=== PATIENT | female | born 1990 | race American Indian/Alaskan Native ===

== ENCOUNTER 2016-07-02 23:34 | Emergency (ER) | payer MEDICAID ==
[2016-07-03 00:09] LABS: Basophils % (Auto) 0.7 % (0.0-1.8); Eosinophils % (Auto) 4.8 % (0.0-4.3); Hematocrit 38.9 % (30.3-42.9); Hemoglobin 12.3 gm/dl (10.1-14.3); Mean Corpuscular HGB Conc 32 % (30-34); Mean Corpuscular Volume 82 fl (79-97); Platelet Count 301 K/mm3 (140-440); Red Blood Count 4.77 M/mm3 (3.65-5.03); White Blood Count 6.3 K/mm3 (4.5-11.0)
[2016-07-03 00:11] LABS: Mean Corpuscular Hemoglobin 26 pg (28-32)
[2016-07-03 00:26] LABS: Alanine Aminotransferase 14 units/L (7-56); Albumin 4.1 g/dL (3.9-5); Albumin/Globulin Ratio 1.4 %; Alkaline Phosphatase 64 units/L (35-129); BUN/Creatinine Ratio 15.71; Bilirubin,Total < 0.2 mg/dL (0.1-1.2); Blood Urea Nitrogen 11 mg/dL (7-17); Calcium 8.7 mg/dL (8.4-10.2); Carbon Dioxide 25 mmol/L (22-30); Chloride 100.9 mmol/L (98-107); Glucose 93 mg/dL (65-100); Lipase 24 units/L (13-60); Potassium 3.7 mmol/L (3.6-5.0); Sodium 137 mmol/L (137-145)
[2016-07-03 00:38] LABS: Anion Gap 15 mmol/L
[2016-07-03 06:39] VITALS: BP 146/88
[2016-07-03 06:59] LABS: Bilirubin,Urine NEG (Negative); Blood,Urine NEG (Negative); Ketones,Urine NEG (Negative); Leukocyte Esterase,Urine NEG (Negative); Mucus,Urine FEW /HPF; Nitrite,Urine NEG (Negative); Protein,Urine <15 mg/dL mg/dL (Negative); RBC,Urine < 1.0 /HPF (0.0-6.0); Urobilinogen,Urine < 2.0 mg/dL (<2.0)
--- NOTE | 2016-07-03 07:42 | Emergency Department Report ---
HPI - General Chief Complaint: Abdominal Pain Time Seen by Provider: 07/03/16 07:14 - HPI HPI: This is a 25-year-old Afro-Omani female presents to the emergency department with a three-day history of lower abdomen and low back pain. This is really more of an acute on chronic condition as it is been going on since last March. She believes is related to a ovarian cyst she has in her left ovary. She called her GEOGRAPHY DEPARTMENT CHAIR at [facility] was told to come to the emergency department. She feels as if her abdomen is distended. She denies any problems with bowel or bladder, vaginal bleeding or discharge, nausea or vomiting or any fever. She tried a hydrocodone for pain without any relief. She denies any past medical history. She has a past surgical history 1 . No recent travel or sick contacts at home. ED Past Medical Hx - Past Medical History Previous Medical History?: No - Surgical History Past Surgical History?: No Additional Surgical History: csection - Social History Smoking Status: Current Every Day Smoker Substance Use Type: Alcohol - Medications Home Medications: Home Medications Medication Instructions Recorded Confirmed Last Taken Type HYDROcodone/APAP 5-325 [[place] 1 each PO Q6HR PRN #10 tablet 07/03/16 Unknown Rx 5/325] ED Review of Systems ROS: Stated complaint: NAUSEA, HEADACHE, ABD PAIN Other details as noted in HPI Comment: All other systems reviewed and negative Constitutional: denies: chills, fever Eyes: denies: eye pain, eye discharge, vision change ENT: denies: ear pain, throat pain Respiratory: denies: cough, shortness of breath, wheezing Cardiovascular: denies: chest pain, palpitations Gastrointestinal: abdominal pain, nausea. denies: vomiting Genitourinary: denies: urgency, dysuria, discharge Musculoskeletal: back pain. denies: arthralgia Skin: denies: rash, lesions Neurological: denies: weakness, paresthesias Physical Exam - Physical Exam Vital Signs: Vital Signs 07/02/16 07/03/16 07/03/16 23:42 06:17 06:38 Temperature 98.5 F 98.6 F Pulse Rate 85 59 L 60 Respiratory 16 16 18 Rate Blood Pressure 129/90 148/90 Blood Pressure 146/88 [Right] O2 Sat by Pulse 99 100 100 Oximetry 07/03/16 06:43 Temperature Pulse Rate Respiratory 20 Rate Blood Pressure Blood Pressure [Right] O2 Sat by Pulse Oximetry Physical Exam: GENERAL: The patient is well-developed well-nourished. HEENT: Normocephalic. Atraumatic. Extraocular motions are intact. Patient has moist mucous membranes. Pupils equal reactive to light bilaterally. NECK: Supple. Trachea is midline. CHEST/LUNGS: Clear to auscultation. There is no respiratory distress noted. HEART/CARDIOVASCULAR: Regular. There is no tachycardia. There is no gallop rub or murmur. ABDOMEN: Abdomen is soft. Mild tenderness to palpation to the lower quadrants of the abdomen. No guarding rebound tenderness. No peritoneal signs. Patient has normal bowel sounds. There is no abdominal distention. SKIN: There is no rash. There is no edema. There is no diaphoresis. NEURO: The patient is awake, alert, and oriented. The patient is cooperative. The patient has no focal neurologic deficits. The patient has normal speech. MUSCULOSKELETAL: There is no tenderness or deformity. There is no limitation range of motion. There is no evidence of acute injury. ED Course Vital Signs 07/02/16 07/03/16 07/03/16 23:42 06:17 06:38 Temperature 98.5 F 98.6 F Pulse Rate 85 59 L 60 Respiratory 16 16 18 Rate Blood Pressure 129/90 148/90 Blood Pressure 146/88 [Right] O2 Sat by Pulse 99 100 100 Oximetry 07/03/16 06:43 Temperature Pulse Rate Respiratory 20 Rate Blood Pressure Blood Pressure [Right] O2 Sat by Pulse Oximetry ED Medical Decision Making - Lab Data Result diagrams: 07/02/16 23:53 07/02/16 23:53 - Radiology Data Radiology results: report reviewed Transvaginal/pelvic ultrasound shows bilateral simple ovarian cysts with left greater than right. Abdominal ultrasound does not show any acute process. - Medical Decision Making 25 a female presents with acute on chronic lower abdomen pain has worsened over the past 3 days. She has a history of ovarian cysts. Labs are unremarkable including no signs of infection in the blood or urine, electrolyte abnormalities , renal insufficiency, glucose abnormalities. Patient's belly labs are normal including bilirubin, LFTs and lipase. Patient is not . Normal abdominal ultrasound examination. Transvaginal/pelvic ultrasound shows bilateral simple ovarian cysts. Patient given pain medication here with good relief. She already has established care with the MENTAL MEASUREMENTS TEACHER will be given a primary care doctor referral. She'll return to the ED with any worsening of her symptoms or any acute distress. - Differential Diagnosis ovarian cyst, torsion, colitis, diverticulitis, , fibroids, UTI Critical Care Time: No Critical care attestation.: If time is entered above; I have spent that time in minutes in the direct care of this critically ill patient, excluding procedure time. ED Disposition Clinical Impression: Abdominal pain Qualifiers: Abdominal location: lower abdomen, unspecified Qualified Code(s): R10.30 - Lower abdominal pain, unspecified Ovarian cyst Qualifiers: Laterality: bilateral Qualified Code(s): N83.201 - Unspecified ovarian cyst, right side; N83.202 - Unspecified ovarian cyst, left side Disposition: DISCHARGED TO HOME OR SELFCARE Is pt being admited?: No Condition: Stable Instructions: Abdominal Pain (ED), Ovarian Cyst (ED) Additional Instructions: Please follow-up with your [facility] GEOGRAPHY DEPARTMENT CHAIR service. I also given you a few referrals for local primary care clinics for follow-up. Return to the emergency department with any worsening of your symptoms or any acute distress. You've been prescribed a medication that is sedating. Therefore this medication cannot be mixed with alcohol, or taken prior to driving, working, or being responsible for children. Prescriptions: HYDROcodone/APAP 5-325 [[place] 5/325] 1 each PO Q6HR PRN #10 tablet PRN Reason: Pain Referrals: MAYI CAMACHO CNM [Primary Care Provider] - 3-5 Days [facility] [Outside] - 3-5 Days [facility] [Outside] - 3-5 Days [facility] [Outside] - 3-5 Days Time of Disposition: 09:24
[2016-07-03] MEDS: MORPHINE IM ONE (08:02)
[2016-07-03] MEDS: ZOFRAN ODT PO ONE (08:03)
--- NOTE | 2016-07-03 09:01 | Ultrasound Report ---
ULTRASOUND ABDOMEN COMPLETE: Technique: Transabdominal ultrasound with color Doppler interrogation. History: abdominal pain. Findings: The liver is normal size, contour and echotexture. The gallbladder dimensions are within normal limits without intraluminal stone, wall thickening, or pericholecystic fluid. The CBD is normal caliber. The visualized portions of the pancreas including the head and proximal body are within normal limits. The kidneys demonstrate no hydronephrosis or mass. Cortical thickness and echogenicity are within normal limits bilaterally. The spleen and aorta are within normal limits. No aneurysmal dilatation is noted. No ascites. The bladder is unremarkable. IMPRESSION: Unremarkable abdominal ultrasound.
--- NOTE | 2016-07-03 09:04 | Ultrasound Report ---
ULTRASOUND PELVIC COMPLETE ULTRASOUND TRANSVAGINAL HISTORY: Pelvic pain. TECHNIQUE: Transabdominal and transvaginal ultrasound with color doppler interrogation. The uterus is anteverted and measures 9.7 x 4.0 x 4.9 cm. No uterine fibroids are detected. The endometrial stripe measures 6 mm. Normal cervix. The right ovary measures 3.4 x 2.1 x 2.8 cm and contains a 1.1 cm simple cyst The left ovary measures 3.6 x 2.2 x 2.8 cm and contains a 2.7 cm simple cyst. No pelvic fluid collection. Images through the bladder are unremarkable. IMPRESSION: Bilateral simple ovarian cysts as described.
== END 2016-07-03 09:29 | disposition home or self-care (01) ==
LOC: ED 23:34
DX: N83.201 Unspecified ovarian cyst, right side (principal); N83.202 Unspecified ovarian cyst, left side; F17.200 Nicotine dependence, unspecified, uncomplicated
CPT/HCPCS: 36415; 76700; 76830; 76856; 80053; 81001; 81025; 83690; 85025; 96372; 99284; J2270; Q0162

== ENCOUNTER 2017-06-18 19:50 | Outpatient (CLI) | payer MEDICAID ==
[2017-06-18] MEDS ORDERED: LACTATED RINGERS 1,000 ML IV ONE (21:39)
[2017-06-18 21:41] VITALS: BP 116/73
[2017-06-18 22:50] LABS: Bacteria,Urine 1+ /HPF (Negative); Bilirubin,Urine NEG (Negative); Blood,Urine NEG (Negative); Color,Urine Yellow (Yellow); Mucus,Urine FEW /HPF; Nitrite,Urine NEG (Negative); Protein,Urine <15 mg/dL mg/dL (Negative)
== END 2017-06-18 23:05 | disposition home or self-care (01) ==
LOC: EDSTATUS 21:04 → TRG 21:05
PROVIDERS: ATTEND Obstetrics & Gynecology
DX: O26.892 Other specified pregnancy related conditions, second trimester (principal); R10.9 Unspecified abdominal pain; Z3A.22 22 weeks gestation of pregnancy
CPT/HCPCS: 81001

== ENCOUNTER 2017-08-18 18:09 | Outpatient (CLI) | payer MEDICAID ==
[2017-08-18] MEDS ORDERED: LACTATED RINGERS 500 ML IV ONE (18:15)
[2017-08-18 19:42] LABS: Bacteria,Urine 1+ /HPF (Negative); Bilirubin,Urine NEG (Negative); Blood,Urine NEG (Negative); Color,Urine Yellow (Yellow); Protein,Urine <15 mg/dL mg/dL (Negative)
[2017-08-18] MEDS ORDERED: NORMOSOL-R PH 7.4 1,000 ML IV SCH (20:00)
[2017-08-18] MEDS ORDERED: BRETHINE ONE (20:31)
[2017-08-18 22:32] VITALS: BP 134/81
== END 2017-08-18 23:02 | disposition home or self-care (01) ==
LOC: TRG 18:09
PROVIDERS: ATTEND Obstetrics & Gynecology
DX: O62.9 Abnormality of forces of labor, unspecified (principal); Z3A.32 32 weeks gestation of pregnancy
CPT/HCPCS: 81001; 96360; 96361; 96372; J3105

== ENCOUNTER 2017-09-29 11:45 | Inpatient (IN) | payer MEDICAID ==
[2017-09-29] MEDS ORDERED: BICITRA PO ONE ×2 (11:53→17:00)
[2017-09-29] MEDS ORDERED: PEPCID IV ONE ×2 (11:53→17:00)
[2017-09-29] MEDS ORDERED: REGLAN IV ONE ×2 (11:53→17:00)
--- NOTE | 2017-09-29 13:58 | History and Physical Report ---
History of Present Illness Date of examination: 09/29/17 Date of admission: 09/29/17 11:45 Chief complaint: Repeat C Section with BTL History of present illness: Pt is a 26yo BF EDC 10/20/17; EGA 37 0/7 weeks presents from [facility] for Repeat C Section due to Oligohydramnios. She received care at [facility] Client Finance Analyst and co-managed with [facility] for Gestational Diabetes Mellitus controlled on Glyburide and a history of thyroid disorder, and had an u/s today showing an ELKE of 5.2cm and pylectasis. records are available, and GBS is Positive. Past History Past Medical History: heart disease (Normal EKG, Echo and Holter monitoring per chart), diabetes, thyroid disease Past Surgical History: section REGISTERED NURSE CARDIAC History: abnormal PAP smear, herpes Social history: no significant social history, single - Obstetrical History Expected Date of Delivery: 10/20/17 Actual Gestation: 37 Week(s) 0 Day(s) : 3 Medications and Allergies Allergies Allergy/AdvReac Type Severity Reaction Status Date / Time No Known Allergies Allergy Verified 07/02/16 23:40 Home Medications Medication Instructions Recorded Confirmed Last Taken Type Ferrous Sulfate [Feosol 325 MG tab] 325 mg PO BID #60 tablet 09/29/17 Unknown Rx HYDROcodone/APAP 5-325 [[place] 1 each PO Q6HR PRN #30 tablet 09/29/17 Unknown Rx 5/325] Ibuprofen [Motrin] 800 mg PO Q8HR PRN #30 tablet 09/29/17 Unknown Rx Pnv No.95/Ferrous Fum/Folic AC 1 tab PO DAILY 09/29/17 09/29/17 09/29/17 06:00 History [ Formula Tablet] Vit Calc,Iron,Folic 1 each PO DAILY #30 tablet 09/29/17 Unknown Rx [ Vitamins] glyBURIDE [Glyburide] 2.5 mg PO DAILY 09/29/17 09/29/17 09/28/17 12:00 History Active Meds: Active Medications Lactated Ringer's (Lactated Ringers) 1,000 mls @ 2,250 mls/hr IV PREOP RUCHI Stop: 09/30/17 12:27 Oxytocin/Sodium Chloride (Pitocin/Ns 20 Unit/1000ml Drip) 20 units in 1,000 mls @ 0 mls/hr IV TITR RUCHI Review of Systems All systems: negative - Vital Signs Vital signs: Vital Signs Pulse BP 66 113/76 09/29/17 12:27 09/29/17 12:27 Temp Pulse Resp BP Pulse Ox 93 H 120/71 98 09/29/17 13:51 09/29/17 13:24 09/29/17 13:51 - Physical Exam Breasts: Positive: deferred Cardiovascular: Regular rate Lungs: Positive: Clear to auscultation Abdomen: Positive: normal appearance Genitourinary (Female): Positive: normal external genitalia Uterus: Positive: enlarged Extremities: Positive: normal - Obstetrical FHR: category 1 Uterine Contraction Monitor Mode: External Uterine Contraction Pattern: Irregular Results Result Diagrams: 09/29/17 Unknown All other labs normal. Assessment and Plan - Patient Problems (1) 37 weeks gestation of Onset Date: 09/29/17 Current Visit: Yes Status: Acute Plan to address problem: A: IUP @ 37 weeks Gestational Diabetes Mellitus Oligohydramnios Previous C Section Desires permanent sterilization P: Admit for a Repeat C Section with BTL Monitor BS's (2) Previous section Onset Date: 09/29/17 Current Visit: Yes Status: Acute (3) Sterilization Onset Date: 09/29/17 Current Visit: Yes Status: Acute (4) Oligohydramnios without rupture of membranes in third trimester Onset Date: 09/29/17 Current Visit: Yes Status: Acute Qualifiers: Fetus number: single or unspecified fetus Qualified Code(s): O41.03X0 - Oligohydramnios, third trimester, not applicable or unspecified (5) Gestational diabetes mellitus (GDM) Onset Date: 09/29/17 Current Visit: Yes Status: Acute Qualifiers: Gestational diabetes mellitus control: oral hypoglycemic-controlled Trimester: third trimester Qualified Code(s): O24.415 - Gestational diabetes mellitus in , controlled by oral hypoglycemic drugs
[2017-09-29] MEDS: LACTATED RINGERS 1,000 ML IV SCH ×3 (14:35→16:22)
[2017-09-29 15:12] LABS: Basophils # (Auto) 0.1 K/mm3 (0.0-0.1); Basophils % (Auto) 0.7 % (0.0-1.8); Eosinophils # (Auto) 0.1 K/mm3 (0.0-0.4); Eosinophils % (Auto) 2.1 % (0.0-4.3); Hematocrit 31.1 % (30.3-42.9); Hemoglobin 9.7 gm/dl (10.1-14.3); Lymphocytes # (Auto) 1.6 K/mm3 (1.2-5.4); Lymphocytes % (Auto) 23.2 % (13.4-35.0); Mean Corpuscular HGB Conc 31 % (30-34); Mean Corpuscular Volume 74 fl (79-97); Monocytes # (Auto) 0.7 K/mm3 (0.0-0.8); Monocytes % (Auto) 10.1 % (0.0-7.3); Platelet Count 264 K/mm3 (140-440); Red Blood Count 4.22 M/mm3 (3.65-5.03); Red Cell Distribution Width 15.4 % (13.2-15.2)
[2017-09-29 15:15] LABS: Mean Corpuscular Hemoglobin 23 pg (28-32)
[2017-09-29] MEDS ORDERED: NARCAN 0.4 MG/1 ML IV PRN ×2 (16:03→18:30)
[2017-09-29] MEDS ORDERED: PHENERGAN PR PRN (16:03)
[2017-09-29] MEDS ORDERED: BENADRYL IV PRN (16:03)
[2017-09-29] MEDS ORDERED: PHENERGAN PO PRN (16:03)
[2017-09-29] MEDS ORDERED: DILAUDID IV PRN (16:03)
[2017-09-29] MEDS ORDERED: ZOFRAN IV PRN (16:03)
--- NOTE | 2017-09-29 16:03 | Anesthesia Day of Surgery ---
Anesthesia Day of Surgery - Day of Surgery Patient Examined: Yes Patient H&P Reviewed: Yes Patient is NPO: Yes
--- NOTE | 2017-09-29 16:03 | Anesthesia Consultation ---
Anesthesia Consult and Med Hx Date of service: 09/29/17 - Airway Anesthetic Teeth Evaluation: Good ROM Head & Neck: Adequate Mental/Hyoid Distance: Adequate Mallampati Class: Class II Intubation Access Assessment: Probably Good - Pre-Operative Health Status ASA Pre-Surgery Classification: ASA3 Proposed Anesthetic Plan: Epidural, Spinal - Pulmonary Hx Asthma: No COPD: No Hx Pneumonia: No - Cardiovascular System Hx Hypertension: No - Central Nervous System Hx Seizures: No Hx Psychiatric Problems: No - Endocrine Hx Renal Disease: No Hx End Stage Renal Disease: No Hx Non-Insulin Dependent Diabetes: Yes (gestational diabetes) Hx Hypothyroidism: Yes Hx Hyperthyroidism: No - Hematic Hx Anemia: Yes Hx Sickle Cell Disease: No - Other Systems Hx Alcohol Use: No Hx Obesity: Yes (BMI 34.3)
[2017-09-29] MEDS ORDERED: SODIUM CHLORIDE FLUSH SYRINGE 10 ML IV NR ×2 (17:00→19:00)
[2017-09-29] MEDS ORDERED: ANCEF/STERILE WATER 2 GM/20 ML IV ONE (17:25)
[2017-09-29] MEDS ORDERED: WATER FOR IRRIG STERILE IR ONE (17:38)
[2017-09-29] MEDS ORDERED: NACL 0.9% IR ONE (17:38)
[2017-09-29] MEDS ORDERED: NEO SYNEPHRINE/NS Syringe(OR USE) IV ONE (17:45)
[2017-09-29] MEDS: PITOCin/NS 20 UNIT/1000ML DRIP 20 UNITS/1,000 ML BAG IV SCH ×2 (17:47→19:08)
[2017-09-29] MEDS ORDERED: MORPHINE ONE (17:57)
[2017-09-29] MEDS ORDERED: DILAUDID ONE (17:57)
[2017-09-29] MEDS ORDERED: XYLOCAINE MPF 2% ONE (18:06)
--- NOTE | 2017-09-29 18:29 | Operative Report ---
Operative Report Operative Report: Date of procedure: 09/29/2017 Pre-operative diagnosis: 1. Intrauterine at 37-0/7 weeks 2. Gestational diabetes 3. Oligohydramnios 4. Previous 5. Desires permanent sterilization Post-operative diagnosis: Same Procedure name(s): 1. Repeat low transverse section 2. Bilateral tubal ligation Surgeon: Dick Ybarra MD Dairy Husbandman: None Anesthesia: Spinal anesthesia by Dr. White EBL: 700 mls Findings: A 2520 g female Apgars 8 at 1 minute 9 at 5 minutes. Clear amniotic fluid. Normal uterus. Normal tubes and ovaries bilaterally. Procedure: After the patient was prepped and draped in usual sterile fashion, and after satisfactory level of epidural anesthesia was obtained, the skin knife was used to make a transverse skin incision through the previous skin scar. The incision was excised down to layer of the fascia, which was nicked in the midline and extended laterally using the Bovie cautery. The rectus muscles were dissected off the rectus fascia both superiorly and inferiorly. The rectus bellies in the midline, and the peritoneum was entered under direct visualization. The peritoneal incision was extended superiorly and inferiorly. A bladder flap was created and the bladder blade was then placed. The uterus was scored in a curvilinear linear fashion, entered in the midline revealing clear amniotic fluid. The infant's head was delivered onto the surgical field, and the oropharynx and nasopharynx were bulb suctioned. The rest of the infant's body was delivered, cord was doubly clamped and cut and the infant was handed to the waiting respiratory team. The placenta was manually removed from the uterus, and the uterus removed from its normal anatomical position. After gentle uterine lavage, the incision was inspected and found to be without extensions. It was then closed in 2 layers using 0 Vicryl suture in a running interlocking fashion, the second layer imbricating the first. Attention was then turned to the tubal ligation. First the right fallopian tube was grasped using a [place], and the [place] clip was applied to the proximal portion of the tube. The same procedure performed on the left fallopian tube. The left fallopian tube was grasped using [place], and the [place] clip was applied to the possible portion of the tube. After good hemostasis was achieved, copious amounts or irrigation was performed, and the gutters were suctioned free of blood and blood clots. The Tisseel sealant was sprayed across the uterine incision. The uterus was then returned to its normal anatomical position, and after excellent hemostasis assured, the peritoneum was re-approximated using 3-0 Vicryl suture in a running interlocking fashion, and then the rectus muscles were re-approximated using 3- 0 Vicryl suture in a [id number] configuration. The fascia was then re- approximated using 0 Vicryl suture in running interlocking fashion. The subcutaneous layer was made hemostatic using Bovie cautery, the Tisseel sealant was sprayed across the fascial incision and the skin edges re-approximated using 4-0 Vicryl suture in a sub-cuticular fashion. Patient tolerated the procedure well was transported to recovery in stable condition.
[2017-09-29] MEDS ORDERED: SENOKOT PO PRN (18:30)
[2017-09-29] MEDS ORDERED: TYLENOL PO PRN (18:30)
[2017-09-29] MEDS ORDERED: D50W (25GM) Syringe IV PRN (18:30)
[2017-09-29] MEDS ORDERED: TUCKS PAD TP PRN (18:30)
[2017-09-29] MEDS ORDERED: MYLICON PO PRN (18:30)
[2017-09-29] MEDS ORDERED: LANSINOH TP PRN (18:30)
[2017-09-29] MEDS ORDERED: ANCEF/NS 1 GM/50 ML 1 GM/50 ML BAG IV SCH (19:00)
[2017-09-29] MEDS ORDERED: PITOCin/NS 20 UNIT/1000ML DRIP 20 UNITS/1,000 ML BAG IV SCH (19:00)
[2017-09-29] MEDS ORDERED: D5LR 1,000 ML IV SCH (19:00)
[2017-09-29] MEDS: TORADOL IV PRN (20:37)
[2017-09-29] MEDS: HumuLIN R SUB-Q SCH (22:00)
[2017-09-30] MEDS: LACTATED RINGERS 1,000 ML IV SCH ×3 (00:16→09:20)
[2017-09-30] MEDS: ceFAZolin 1 GM in NACL 0.9% 20 ML IV SCH ×2 (01:12→09:22)
[2017-09-30] MEDS: TORADOL IV PRN (02:24)
[2017-09-30 05:32] LABS: Hematocrit 27.1 % (30.3-42.9); Hemoglobin 8.6 gm/dl (10.1-14.3)
[2017-09-30] MEDS ORDERED: BOOSTRIX IM ONE (06:00)
[2017-09-30] MEDS ORDERED: M-M-R II VACCINE SUB-Q ONE (06:00)
[2017-09-30] MEDS: NORCO 5/325 PO PRN ×2 (07:59→14:30)
--- NOTE | 2017-09-30 10:04 | Progress Note ---
Assessment and Plan A: POD#1 s/p Repeat c/s with BTL Bottle feeding Pain well controlled Stable P: Routine PP/PO care Encouraged ambulation in room Abdominal Binder Subjective - Subjective Date of service: 09/30/17 Principal diagnosis: Repeat c/s Interval history: see H&P and operative note Patient reports: appetite normal, voiding normally, pain well controlled, flatus , ambulating normally, no bowel movement [place]: doing well, bottle feeding Objective - Vital Signs Latest vital signs: Vital Signs Temp Pulse Resp BP BP Pulse Ox 09/30/17 07:25 98.2 F 60 20 112/70 96 09/30/17 04:15 98.4 F 68 18 106/68 09/30/17 02:24 20 09/30/17 00:17 98.2 F 75 18 114/70 09/29/17 20:37 20 09/29/17 20:10 98.6 F 61 18 109/70 09/29/17 19:30 97.5 F L 66 108/63 100 09/29/17 19:27 18 09/29/17 19:15 72 104/56 99 09/29/17 19:05 69 10 L 108/61 99 09/29/17 19:00 78 16 99/52 100 09/29/17 18:55 69 16 97/61 99 09/29/17 18:50 67 14 101/58 99 09/29/17 18:45 76 14 98/60 99 09/29/17 18:40 73 17 104/66 99 09/29/17 18:35 102/61 99 09/29/17 18:32 98.2 F 100/67 100 09/29/17 18:28 98.2 F 09/29/17 16:50 98.2 F 18 09/29/17 16:45 86 97 09/29/17 16:40 79 98 09/29/17 16:35 88 123/71 09/29/17 16:18 81 98 09/29/17 16:13 75 98 09/29/17 16:08 81 99 09/29/17 16:01 81 99 09/29/17 15:58 70 88 09/29/17 15:56 77 98 09/29/17 15:51 85 98 09/29/17 15:46 80 99 09/29/17 15:43 69 94 05/07/18 15:41 93 H 98 05/07/18 15:36 68 99 05/07/18 15:31 75 98 05/07/18 15:30 66 73 L 05/07/18 15:26 78 100 05/07/18 15:21 80 98 05/07/18 15:16 70 99 05/07/18 15:15 81 58 L 05/07/18 15:11 67 99 05/07/18 15:06 71 99 05/07/18 15:01 66 99 05/07/18 14:56 66 98 05/07/18 14:51 67 97 05/07/18 14:46 85 97 05/07/18 14:41 76 98 05/07/18 14:36 98 H 98 05/07/18 14:31 77 98 05/07/18 14:26 81 98 05/07/18 14:21 73 99 05/07/18 14:16 73 94 05/07/18 14:11 74 98 05/07/18 14:06 68 96 05/07/18 14:01 70 97 05/07/18 13:56 71 97 05/07/18 13:53 68 94 05/07/18 13:51 93 H 98 05/07/18 13:46 71 94 05/07/18 13:43 71 94 05/07/18 13:41 72 97 05/07/18 13:36 79 98 05/07/18 13:31 69 98 05/07/18 13:26 73 96 05/07/18 13:24 70 120/71 05/07/18 13:21 69 98 05/07/18 13:16 71 98 05/07/18 13:10 69 96 05/07/18 13:06 77 95 05/07/18 13:01 75 96 05/07/18 12:56 67 96 05/07/18 12:51 80 96 05/07/18 12:46 82 97 05/07/18 12:41 71 98 05/07/18 12:36 67 98 05/07/18 12:31 62 99 05/07/18 12:27 66 113/76 Intake and Output 05/07/18 05/08/18 05/08/18 23:59 07:59 15:59 Intake Total 2337.5 209.073 6784 Output Total 200 700 Balance 2137.5 -868.666 9995 Intake: IV 2337.5 973.464 3947 Lactated Ringers 1,000 ml 561.133 9798 @ 125 mls/hr IV DIRECT RUCHI Rx#:[id number] PITOCin/NS 20 UNIT/1000ML 337.5 DRIP 20 units In 1,000 ml @ As Directed IV TITR RUCHI Rx#:[id number] Oral 360 Output: Urine 200 700 Indwelling Catheter 700 Other: Total, Intake Amount 120 Total, Output Amount 300 Estimated Blood Loss 700 - Exam Breasts: Present: normal Cardiovascular: Present: Regular rate, Normal S1, Normal S2 Lungs: Present: Clear to auscultation, Normal air movement Abdomen: Present: normal appearance, soft, normal bowel sounds Vulva: both: normal Uterus: Present: firm, fundal height at umbilicus Extremities: Present: normal Deep Tendon Reflex Grade: Normal +2 Incision: Present: normal, dry, intact, dressed (Pressure dressing intact, no drainage) - Labs Labs: Abnormal lab results 09/29/17 09/29/17 09/29/17 Range/Units 15:30 16:55 22:00 Hgb (10.1-14.3) gm/dl Hct (30.3-42.9) % MCV (79-97) fl MCH (28-32) pg RDW (13.2-15.2) % [place] % (Auto) (0.0-7.3) % POC Glucose 63 L 64 L 64 L (70-105) 09/29/17 09/30/17 09/30/17 Range/Units Unknown 04:52 08:02 Hgb 9.7 L 8.6 L (10.1-14.3) gm/dl Hct 27.1 L (30.3-42.9) % MCV 74 L (79-97) fl MCH 23 L (28-32) pg RDW 15.4 H (13.2-15.2) % [place] % (Auto) 10.1 H (0.0-7.3) % POC Glucose 56 L (70-105)
[2017-09-30] MEDS: PERCOCET 5/325 PO PRN ×2 (17:11→23:10)
[2017-09-30] MEDS: HumuLIN R SUB-Q SCH (22:00)
[2017-09-30] MEDS: MILK OF MAGNESIA PO PRN (23:45)
[2017-10-01] MEDS: PERCOCET 5/325 PO PRN (06:09)
[2017-10-01] MEDS ORDERED: BOOSTRIX IM ONE (08:00)
[2017-10-01] MEDS: HumuLIN R SUB-Q SCH ×2 (08:56→17:54)
--- NOTE | 2017-10-01 09:31 | Progress Note ---
Assessment and Plan - Patient Problems (1) S/P repeat low transverse Current Visit: Yes Status: Acute Plan to address problem: POD 2 - stable Continue routine postop orders Discharge to home 10/02/17 F/U at [facility] in 2 weeks for incision check (2) Anemia in puerperium, baby delivered during current episode of care Current Visit: Yes Status: Acute Plan to address problem: Asymptomatic Continue iron therapy (3) Gestational diabetes mellitus (GDM) Onset Date: 09/29/17 Current Visit: Yes Status: Acute Qualifiers: Gestational diabetes mellitus control: oral hypoglycemic-controlled Trimester: third trimester Qualified Code(s): O24.415 - Gestational diabetes mellitus in , controlled by oral hypoglycemic drugs Plan to address problem: Last two blood sugars - 88, 75 Continue ADA diet and routine accucheck Subjective - Subjective Date of service: 10/01/17 Principal diagnosis: Repeat LTCS, BTL Patient reports: appetite normal, voiding normally, pain well controlled, flatus , ambulating normally, no bowel movement : doing well, other (breast and bottle feeding) Objective - Vital Signs Latest vital signs: Vital Signs Temp Pulse Resp BP BP Pulse Ox 10/01/17 00:30 98.2 F 64 20 112/63 97 09/30/17 23:10 22 09/30/17 16:40 98.3 F 63 20 101/57 98 09/30/17 11:43 98.3 F 60 20 105/63 98 Intake and Output 09/30/17 10/01/17 10/01/17 23:59 07:59 15:59 Intake Total 120 480 Output Total 700 Balance -580 480 Intake: Oral 120 480 Output: Urine 700 Void 700 Other: Total, Intake Amount 120 240 Total, Output Amount 700 # Voids Void 1 - Exam Cardiovascular: Present: Regular rate, Normal S1, Normal S2, No murmurs Lungs: Present: Clear to auscultation, Normal air movement Abdomen: Present: normal appearance, soft Vulva: both: normal Uterus: Present: normal, firm, fundal height at umbilicus Extremities: Present: normal Deep Tendon Reflex Grade: Normal +2 Incision: Present: normal, dry, intact - Labs Labs: Abnormal lab results 09/30/17 09/30/17 Range/Units 11:49 17:17 POC Glucose 110 H 121 H (70-105)
--- NOTE | 2017-10-01 09:37 | Discharge Summary ---
Providers - Providers Date of Admission: 09/29/17 11:45 Date of discharge: 10/02/17 Attending physician: IGNACIO WALSH MD Primary care physician: IGNACIO WALSH MD Hospitalization Reason for admission: section, IUP at term Delivery: Procedure: repeat low transverse Episiotomy: none Laceration: none Incision: normal, dry, intact Other procedures: tubal ligation complications: none Discharge diagnosis: IUP at term delivered baby: female Hospital course: Uncomplicated Condition at discharge: Stable Disposition: DC-01 TO HOME OR SELFCARE - Discharge Diagnoses (1) S/P repeat low transverse Status: Acute (2) Anemia in puerperium, baby delivered during current episode of care Status: Acute Comment: Asymptomatic - continue iron therapy (3) Gestational diabetes mellitus (GDM) Status: Acute Qualifiers: Gestational diabetes mellitus control: oral hypoglycemic-controlled Trimester: third trimester Qualified Code(s): O24.415 - Gestational diabetes mellitus in , controlled by oral hypoglycemic drugs Plan - Discharge Medications Prescriptions: Ferrous Sulfate [Feosol 325 MG tab] 325 mg PO BID #60 tablet HYDROcodone/APAP 5-325 [[place] 5/325] 1 each PO Q6HR PRN #30 tablet PRN Reason: Pain Ibuprofen [Motrin] 800 mg PO Q8HR PRN #30 tablet PRN Reason: Moder Pain Unrelieved By [place] Vit Calc,Iron,Folic [ Vitamins] 1 each PO DAILY #30 tablet - Provider Discharge Summary Activity: routine, no sex for 6 weeks, no heavy lifting 4 weeks, no strenuous exercise Diet: routine Instructions: routine Additional instructions: [] Smoking cessation referral if applicable(refer to patient education folder for contact #) [] Refer to [facility]'s [facility] Booklet Call your doctor immediately for: * Fever > 100.5 * Heavy vaginal bleeding ( >1 pad per hour) * Severe persistent headache * Shortness of breath * Reddened, hot, painful area to leg or breast * Drainage or odor from incision. * Keep incision clean and dry at all times and follow doctor's instructions regarding bathing/showering - Follow up plan Follow up: IGNACIO WALSH MD [Primary Care Provider] - 14 Days (Follow up at [facility] in 2 weeks for incision check)
[2017-10-01] MEDS: FEOSOL PO SCH (10:26)
[2017-10-01] MEDS: PRENATAL VITAMIN PO SCH (10:27)
[2017-10-01] MEDS: MOTRIN PO PRN ×2 (10:28→16:30)
[2017-10-01] MEDS: NORCO 5/325 PO PRN (13:40)
[2017-10-02] MEDS: PERCOCET 5/325 PO PRN ×2 (00:59→13:21)
[2017-10-02] MEDS: MOTRIN PO PRN ×2 (00:59→09:31)
[2017-10-02] MEDS: MILK OF MAGNESIA PO PRN (01:02)
[2017-10-02] MEDS: FEOSOL PO SCH (09:30)
[2017-10-02] MEDS: PRENATAL VITAMIN PO SCH (09:30)
[2017-10-02 18:51] VITALS: BP 120/72
== END 2017-10-02 16:00 | disposition home or self-care (01) | DRG 765 ==
LOC: LD 11:45 → OB 20:22
PROVIDERS: ADMIT Obstetrics & Gynecology; ATTEND Obstetrics & Gynecology
PROC: 10D00Z1 Extraction of Products of Conception, Low, Open Approach (ICD-10-PCS; principal; 2017-09-29)
PROC: 0UL70CZ Occlusion of Bilateral Fallopian Tubes with Extraluminal Device, Open Approach (ICD-10-PCS; 2017-09-29)
DX: O34.211 Maternal care for low transverse scar from previous cesarean delivery (principal); O41.03X0 Oligohydramnios, third trimester, not applicable or unspecified; O24.425 Gestational diabetes mellitus in childbirth, controlled by oral hypoglycemic drugs; O99.824 Streptococcus B carrier state complicating childbirth; Z3A.37 37 weeks gestation of pregnancy; Z37.0 Single live birth; D64.9 Anemia, unspecified; Z30.2 Encounter for sterilization; O90.81 Anemia of the puerperium
CPT/HCPCS: 36415; 82962; 85014; 85018; 85025; 86592; 86850; 86900; 86901; 90471; 90715; 99211; A6250; C9250; G0463; J0690; J1170; J1885; J2270; J2370; J2405; J2590; J2765; J7120

== ENCOUNTER 2020-04-09 21:16 | Emergency (ER) | payer MEDICAID ==
[2020-04-09 23:41] LABS: Basophils % (Auto) 0.9 % (0.0-1.8); Eosinophils # (Auto) 0.2 K/mm3 (0.0-0.4); Eosinophils % (Auto) 2.8 % (0.0-4.3); Hematocrit 40.8 % (30.3-42.9); Hemoglobin 13.4 gm/dl (10.1-14.3); Lymphocytes # (Auto) 2.5 K/mm3 (1.2-5.4); Lymphocytes % (Auto) 42.9 % (13.4-35.0); Mean Corpuscular HGB Conc 33 % (30-34); Mean Corpuscular Volume 90 fl (79-97); Monocytes # (Auto) 0.3 K/mm3 (0.0-0.8); Monocytes % (Auto) 5.4 % (0.0-7.3); Platelet Count 378 K/mm3 (140-440); Red Blood Count 4.53 M/mm3 (3.65-5.03); Red Cell Distribution Width 18.6 % (13.2-15.2)
[2020-04-09 23:52] LABS: Blood Urea Nitrogen 7 mg/dL (7-17); Calcium 9.3 mg/dL (8.4-10.2); Hemolysis Index 1
[2020-04-09 23:55] LABS: BUN/Creatinine Ratio 12
[2020-04-10] MEDS ORDERED: ASPIRIN 325 MG TAB ONE (01:22)
[2020-04-10] MEDS ORDERED: SODIUM CHLORIDE 0.9% 1000 ML 1,000 ML IV ONE (01:59)
[2020-04-10] MEDS ORDERED: ACETAMINOPHEN 500 MG TAB PO ONE (01:59)
[2020-04-10] MEDS ORDERED: MECLIZINE 25 MG TAB PO ONE (01:59)
--- NOTE | 2020-04-10 02:31 | XRay Report ---
CHEST 1 VIEW 04/10/2020 2:23 AM INDICATION / CLINICAL INFORMATION: syncope. COMPARISON: None available. FINDINGS: SUPPORT DEVICES: None. HEART / MEDIASTINUM: No significant abnormality. LUNGS / PLEURA: No significant pulmonary or pleural abnormality. No pneumothorax. ADDITIONAL FINDINGS: No significant additional findings. IMPRESSION: 1. No acute findings. Signer Name: Eulogio Castro MD Signed: 04/10/2020 2:26 AM Workstation Name: [email or web address]
--- NOTE | 2020-04-10 02:46 | Cat Scan Report ---
CT head/brain wo con INDICATION: syncope, dizziness. TECHNIQUE: Routine CT head without contrast. All CT scans at this location are performed using CT dos e reduction for ALARA by means of automated exposure control. COMPARISON: None. FINDINGS: BRAIN / INTRACRANIAL CONTENTS: No acute hemorrhage, mass effect, midline shift, or hydrocephalus. No appreciable acute large territorial or lacunar infarct. No chronic infarct or focal atrophy. Normal b rain volume and ventricular/sulcal size for age. ORBITS: No significant abnormality of visualized orbits. SINUSES / MASTOIDS: No significant abnormality of visualized sinuses and mastoid air cells. ADDITIONAL FINDINGS: None. IMPRESSION: 1. No acute intracranial abnormality. Signer Name: Eulogio Castro MD Signed: 04/10/2020 2:41 AM Workstation Name: [id number]
--- NOTE | 2020-04-10 02:48 | Cat Scan Report ---
CT ABDOMEN AND PELVIS WITH CONTRAST HISTORY: Lower abdominal pain COMPARISON: None TECHNIQUE: Routine abdominal and pelvic CT exam performed following intravenous contrast administrat ion. The patient received 100 mL IV Omnipaque 300. All CT scans at this location are performed using CT dose reduction for ALARA by means of automated exposure control. FINDINGS: CT ABDOMEN: Lung Bases: No significant abnormality. Liver: No significant abnormality. Biliary: No significant abnormality. Spleen: No significant abnormality. Unenlarged. Pancreas: No significant abnormality. Adrenals: No significant abnormality. Kidneys: No significant abnormality. Lymphatics: No lymphadenopathy. Vasculature: No significant abnormality. Bowel/Peritoneum: No acute abnormality. No free air. No free fluid. Normal appendix. There is a tiny fat-containing supraumbilical ventral hernia. CT PELVIC: : No acute findings. There are bilateral tubal ligation clips in place. Lymphatics: No lymphadenopathy. Osseous Structures: No aggressive appearing osseous lesions. Additional Findings: None IMPRESSION: 1. No acute findings. Signer Name: Eulogio Castro MD Signed: 04/10/2020 2:43 AM Workstation Name: [id number]
--- NOTE | 2020-04-10 05:57 | Emergency Department Report ---
ED Syncope HPI - General Chief Complaint: Syncope Stated Complaint: HIGH BLOOD PRESSURE - History of Present Illness Initial Comments: Patient is a 29-year-old -[place] female with a history of hypertension who presents to the ED with complaint of acute onset of a single episode of syncope that occurred 6 hours ago while at home. Patient states that she was in the kitchen standing when she felt lightheaded and had a syncopal episode with a brief loss of consciousness. Patient states that she thereafter developed headache with nausea and back pain. Patient denies dizziness, seizures, chest pain, shortness of breath, change in vision, vomiting, abdominal pain, numbness and tingling or weakness of upper and lower extremities bilaterally, cough, fever, chills or cough. Timing/Prior Episodes: single episode today, other (headache) Precipitating Factors: Positive: lightheadedness, nausea, pain. Negative: blurred vision, confusion, diaphoresis, recent head trauma, rapid heart beat Context: standing Loss of Consciousness: no loss of consciousness Current Symptoms: headache, lightheadedness. denies: loss of bladder control, loss of bowel control, motionless, nausea, pale, shallow/rapid breathing, weak/absent pulse, weakness, other - Related Data Allergies/Adverse Reactions: Allergies turkey Allergy (Verified 09/30/17 12:00) Unknown Home Medications: Ambulatory Orders Ferrous Sulfate [Feosol 325 MG tab] 325 mg PO BID #60 tablet 09/29/17 HYDROcodone/APAP 5-325 [[place] 5/325] 1 each PO Q6HR PRN #30 tablet 09/29/17 Ibuprofen [Motrin] 800 mg PO Q8HR PRN #30 tablet 09/29/17 Pnv No.95/Ferrous Fum/Folic AC [ Formula Tablet] 1 tab PO DAILY 09/29/17 Vit Calc,Iron,Folic [ Vitamins] 1 each PO DAILY #30 tablet 09/29/17 glyBURIDE [Glyburide] 2.5 mg PO DAILY 09/29/17 Butalb/Acetamin/Caff 50-325-40 [Fioricet 50-325-40] 1 tab PO Q6HR PRN #12 tab 04/10/20 Ibuprofen [Motrin] 600 mg PO Q8H PRN #24 tablet 04/10/20 Meclizine HCl 25 mg PO Q8H PRN #30 tablet 04/10/20 ED Review of Systems ROS: Stated complaint: HIGH BLOOD PRESSURE Other details as noted in HPI Constitutional: malaise, weakness. denies: chills, fever Eyes: denies: eye pain, eye discharge, vision change ENT: denies: ear pain, throat pain Respiratory: denies: cough, shortness of breath, wheezing Cardiovascular: denies: chest pain, palpitations, syncope, paroxysmal nocturnal dyspnea Endocrine: no symptoms reported Gastrointestinal: nausea. denies: abdominal pain, vomiting, diarrhea Genitourinary: denies: urgency, dysuria, discharge Musculoskeletal: denies: back pain, joint swelling, arthralgia Skin: denies: rash, lesions Neurological: headache, other (syncope). denies: weakness, paresthesias Psychiatric: denies: anxiety, depression Hematological/Lymphatic: denies: easy bleeding, easy bruising ED Past Medical Hx - Past Medical History Previous Medical History?: Yes Hx Hypertension: Yes Hx Congestive Heart Failure: No Hx Diabetes: (Gestational Diabetes) Hx Deep Vein Thrombosis: No Hx Renal Disease: No Hx Sickle Cell Disease: No Hx Seizures: No Hx Asthma: No Hx COPD: No Hx HIV: No Additional medical history: thyroid - Surgical History Past Surgical History?: Yes Additional Surgical History: c section X 2 - Social History Smoking Status: Current Every Day Smoker Substance Use Type: None - Medications Home Medications: Home Medications Medication Instructions Recorded Confirmed Last Taken Type Ferrous Sulfate [Feosol 325 MG tab] 325 mg PO BID #60 tablet 09/29/17 Unknown Rx HYDROcodone/APAP 5-325 [[place] 1 each PO Q6HR PRN #30 tablet 09/29/17 Unknown Rx 5/325] Ibuprofen [Motrin] 800 mg PO Q8HR PRN #30 tablet 09/29/17 Unknown Rx Pnv No.95/Ferrous Fum/Folic AC 1 tab PO DAILY 09/29/17 09/29/17 09/29/17 06:00 History [ Formula Tablet] Vit Calc,Iron,Folic 1 each PO DAILY #30 tablet 09/29/17 Unknown Rx [ Vitamins] glyBURIDE [Glyburide] 2.5 mg PO DAILY 09/29/17 09/29/17 09/28/17 12:00 History Butalb/Acetamin/Caff 50-325-40 1 tab PO Q6HR PRN #12 tab 04/10/20 Unknown Rx [Fioricet 50-325-40] Ibuprofen [Motrin] 600 mg PO Q8H PRN #24 tablet 04/10/20 Unknown Rx Meclizine HCl 25 mg PO Q8H PRN #30 tablet 04/10/20 Unknown Rx ED Physical Exam - General Limitations: No Limitations General appearance: alert, in no apparent distress - Head Head exam: Present: atraumatic, normocephalic, normal inspection - Eye Eye exam: Present: normal appearance, PERRL, EOMI Pupils: Present: normal accommodation - ENT ENT exam: Present: normal exam, normal orophraynx, mucous membranes moist, TM's normal bilaterally, normal external ear exam - Neck Neck exam: Present: normal inspection, full ROM - Respiratory Respiratory exam: Present: normal lung sounds bilaterally. Absent: respiratory distress, wheezes, rales, rhonchi, chest wall tenderness, accessory muscle use, decreased breath sounds, prolonged expiratory - Cardiovascular Cardiovascular Exam: Present: regular rate, normal rhythm, normal heart sounds. Absent: systolic murmur, diastolic murmur, rubs, gallop - GI/Abdominal GI/Abdominal exam: Present: soft, normal bowel sounds. Absent: distended, tenderness, guarding, hyperactive bowel sounds, hypoactive bowel sounds - Extremities Exam Extremities exam: Present: normal inspection, full ROM, normal capillary refill - Back Exam Back exam: Present: normal inspection, full ROM. Absent: tenderness, CVA tenderness (R), CVA tenderness (L), muscle spasm, paraspinal tenderness, vertebral tenderness - Neurological Exam Neurological exam: Present: alert, oriented X3, CN II-XII intact, normal gait, reflexes normal - Psychiatric Psychiatric exam: Present: normal affect, normal mood - Skin Skin exam: Present: warm, dry, intact, normal color. Absent: rash ED Course Vital Signs 04/09/20 04/10/20 22:48 01:38 Temperature 98.4 F 98.3 F Pulse Rate 76 77 Respiratory 16 18 Rate Blood Pressure 149/106 Blood Pressure 149/96 [Left] O2 Sat by Pulse 98 98 Oximetry ED Medical Decision Making - Lab Data Result diagrams: 04/09/20 23:15 04/09/20 23:15 - Radiology Data Radiology results: report reviewed, image reviewed Findings [facility] [address] [place] [address] Cat Scan Report Signed Patient: SHERINE ALCAZAR MR#: [id number] : 1990 Acct:[id number] Age/Sex: 29 / F ADM Date: 04/09/20 Loc: ED Attending Dr: Ordering Physician: SNEHA VELASQUEZ Date of Service: 04/10/20 Procedure(s): CT head/brain wo con Accession Number(s): [id number] cc: SNEHA VELASQUEZ CT head/brain wo con INDICATION: syncope, dizziness. TECHNIQUE: Routine CT head without contrast. All CT scans at this location are performed using CT dose reduction for ALARA by means of automated exposure control. COMPARISON: None. FINDINGS: BRAIN / INTRACRANIAL CONTENTS: No acute hemorrhage, mass effect, midline shift, or hydrocephalus. No appreciable acute large territorial or lacunar infarct. No chronic infarct or focal atrophy. Normal brain volume and ventricular/sulcal size for age. ORBITS: No significant abnormality of visualized orbits. SINUSES / MASTOIDS: No significant abnormality of visualized sinuses and mastoid air cells. ADDITIONAL FINDINGS: None. IMPRESSION: 1. No acute intracranial abnormality. Signer Name: Eulogio Castro MD Signed: 04/10/2020 2:41 AM Workstation Name: [id number] Transcribed By: ERMELINDA Dictated By: Eulogio Castro MD Electronically Authenticated By: Eulogio Castro MD Signed Date/Time: 04/10/20240 DD/ 9 TD/TT: Findings [facility] [address] [place] [address] XRay Report Signed Patient: SHERINE ALCAZAR MR#: [id number] : 1990 Acct:[id number] Age/Sex: 29 / F ADM Date: 04/09/20 Loc: ED Attending Dr: Ordering Physician: SNEHA VELASQUEZ Date of Service: 04/10/20 Procedure(s): XR chest 1V ap Accession Number(s): [id number] cc: SNEHA VELASQUEZ Fluoro Time In Minutes: CHEST 1 VIEW 04/10/2020 2:23 AM INDICATION / CLINICAL INFORMATION: syncope. COMPARISON: None available. FINDINGS: SUPPORT DEVICES: None. HEART / MEDIASTINUM: No significant abnormality. LUNGS / PLEURA: No significant pulmonary or pleural abnormality. No pneumothorax. ADDITIONAL FINDINGS: No significant additional findings. IMPRESSION: 1. No acute findings. Signer Name: Eulogio Castro MD Signed: 04/10/2020 2:26 AM Workstation Name: [id number] Transcribed By: ERMELINDA Dictated By: Eulogio Castro MD Electronically Authenticated By: Eulogio Castro MD Signed Date/Time: 04/10/20225 DD/ 5 TD/TT: Findings [facility] [address] [place] [address] Cat Scan Report Signed Patient: SHERINE ALCAZAR MR#: [id number] : 1990 Acct:[id number] Age/Sex: 29 / F ADM Date: 04/09/20 Loc: ED Attending Dr: Ordering Physician: SNEHA VELASQUEZ Date of Service: 04/10/20 Procedure(s): CT abdomen pelvis w con Accession Number(s): [id number] cc: SNEHA VELASQUEZ CT ABDOMEN AND PELVIS WITH CONTRAST HISTORY: Lower abdominal pain COMPARISON: None TECHNIQUE: Routine abdominal and pelvic CT exam performed following intravenous contrast administration. The patient received 100 mL IV Omnipaque 300. All CT scans at this location are performed using CT dose reduction for ALARA by means of automated exposure control. FINDINGS: CT ABDOMEN: Lung Bases: No significant abnormality. Liver: No significant abnormality. Biliary: No significant abnormality. Spleen: No significant abnormality. Unenlarged. Pancreas: No significant abnormality. Adrenals: No significant abnormality. Kidneys: No significant abnormality. Lymphatics: No lymphadenopathy. Vasculature: No significant abnormality. Bowel/Peritoneum: No acute abnormality. No free air. No free fluid. Normal appendix. There is a tiny fat-containing supraumbilical ventral hernia. CT PELVIC: : No acute findings. There are bilateral tubal ligation clips in place. Lymphatics: No lymphadenopathy. Osseous Structures: No aggressive appearing osseous lesions. Additional Findings: None IMPRESSION: 1. No acute findings. Signer Name: Eulogio Castro MD Signed: 04/10/2020 2:43 AM Workstation Name: [id number] Transcribed By: ERMELINDA Dictated By: Eulogio Castro MD Electronically Authenticated By: Eulogio Castro MD Signed Date/Time: 04/10/20242 DD/ 1 TD/TT: - Medical Decision Making This is a 29-year-old -[place] female with a history of hypertension who presents to the ED with complaint of acute onset of a single episode of syncope that occurred 6 hours ago while at home. Patient states that she was in the kitchen standing when she felt lightheaded and had a syncopal episode with a brief loss of consciousness. Patient states that she thereafter developed headache with nausea and back pain. Patient also states that she has had diffuse low abdominal pain for the last 2 weeks with persistent nausea. In the ED, patient is alert and oriented x3 and is not in distress but appears to be in pain. Patient was treated for pain in the ED and also received normal saline 1 L IV bolus x1. Patient was also treated for dizziness with meclizine p.o. x1. The head CT scan without contrast showed no acute intracranial abnormalities or hemorrhage. The chest x-ray showed no acute cardiopulmonary abnormalities or pneumonitis. The abdomen pelvis CT scan with contrast also showed no acute ab normalities. EKG shows normal sinus rhythm with a ventricular rate of [address] or T wave abnormalities. Lab test results were reviewed and are all nonactionable. On reevaluation, patient felt better, the headache resolved medications. Patient was discharged home on medications and was advised to follow-up with her primary care physician in 3 to 5 days for reevaluation or return to the ED immediately if symptoms get worse. - Differential Diagnosis Syncope; ACS; Dehydration; Dysmenorrhea; UTI; Migraine headache; seizure Critical care attestation.: If time is entered above; I have spent that time in minutes in the direct care of this critically ill patient, excluding procedure time. ED Disposition Clinical Impression: Dizziness and giddiness, Syncope and collapse Abdominal pain Qualifiers: Abdominal location: generalized Qualified Code(s): R10.84 - Generalized abdominal pain Headache Qualifiers: Headache type: tension-type Headache chronicity pattern: acute headache Intractability: not intractable Qualified Code(s): G44.209 - Tension-type headache, unspecified, not intractable Disposition: DC-01 TO HOME OR SELFCARE Is pt being admited?: No Does the pt Need Aspirin: No Condition: Stable Instructions: Syncope (ED), Abdominal Pain, Adult, [id number], Syncope, [id number], Dizziness, [id number] Additional Instructions: All lab test results are unremarkable. Chest x-ray shows no acute cardiopulmonary abnormalities or pneumonitis. Head CT scan without contrast shows no acute intracranial abnormalities or hemorrhage. Abdomen pelvis CT scan with contrast shows no acute abnormalities. Therefore take medication with food, drink plenty of fluids and follow-up with your primary care physician in 5 to 7 days for reevaluation or return to the ED immediately if symptoms get worse. Prescriptions: Butalb/Acetamin/Caff 50-325-40 [Fioricet 50-325-40] 1 tab PO Q6HR PRN #12 tab PRN Reason: Headache Meclizine HCl 25 mg PO Q8H PRN #30 tablet PRN Reason: DIZZINESS Ibuprofen [Motrin] 600 mg PO Q8H PRN #24 tablet PRN Reason: Pain Referrals: [facility] [Provider Group] - 3-5 Days Forms: Work/School Release Form(ED) Time of Disposition: 05:58 Print Language: ESTONIAN
[2020-04-10 06:14] VITALS: BP 141/100
== END 2020-04-10 06:14 | disposition home or self-care (01) ==
LOC: ED 21:16
DX: R55 Syncope and collapse (principal); R10.84 Generalized abdominal pain; I10 Essential (primary) hypertension; F17.200 Nicotine dependence, unspecified, uncomplicated; E11.9 Type 2 diabetes mellitus without complications; Z79.899 Other long term (current) drug therapy; Z91.018 Allergy to other foods
CPT/HCPCS: 36415; 70450; 71045; 74177; 80048; 84436; 84443; 84484; 84703; 85025; 93005; 96360; 99284; J7030; Q9967

== ENCOUNTER 2021-02-27 10:41 | Observation (INO) | payer MEDICAID ==
[2021-02-27] MEDS ORDERED: SODIUM CHLORIDE 0.9% 1000 ML 1,000 ML IV ONE (11:05)
[2021-02-27] MEDS ORDERED: ONDANSETRON 4 MG/2 ML INJ IV ONE (11:05)
--- NOTE | 2021-02-27 11:12 | Emergency Department Report ---
ED General Adult HPI - General Chief complaint: Nausea/Vomiting/Diarrhea Stated complaint: SOB/UNABLE TO EAT/URINE COLOR BROWN Time Seen by Provider: 02/27/21 10:57 Source: patient Mode of arrival: Ambulatory Limitations: No Limitations - History of Present Illness Initial comments: Patient is a 30-year-old female presents emergency room with complaints of nausea and vomiting that began 8 days ago. She states that she is not able to tolerate p.o. intake. She states that whenever she attempts to eat or drink something that is when she has the vomiting but otherwise without oral intake she does not have the vomiting. She states that she also has associated chills, generalized body aches, shortness of breath, and darker urine with odor. She denies any known sick contacts or recent travel. She has not been vaccinated for COVID-19. She denies any cough, chest pain, diarrhea, dysuria, abdominal pain. Patient denies any past medical history. No allergies to medications. Patient states that she had tubal ligation. Patient denies any drug use. She states that she is a previous heavy alcohol user, she states that she previously used to drink 1 pint of liquor a day, she states that she stopped drinking 1 month ago. - Related Data Home Medications Medication Instructions Recorded Confirmed Last Taken glyBURIDE [Glyburide] 2.5 mg PO DAILY 09/29/17 02/27/21 02/26/21 Allergies Allergy/AdvReac Type Severity Reaction Status Date / Time turkey Allergy Unknown Verified 02/27/21 10:50 ED Review of Systems ROS: Stated complaint: SOB/UNABLE TO EAT/URINE COLOR BROWN Other details as noted in HPI Comment: All other systems reviewed and negative ED Past Medical Hx - Past Medical History Hx Hypertension: Yes Hx Congestive Heart Failure: No Hx Diabetes: (Gestational Diabetes) Hx Deep Vein Thrombosis: No Hx Renal Disease: No Hx Sickle Cell Disease: No Hx Seizures: No Hx Asthma: No Hx COPD: No Hx HIV: No Additional medical history: thyroid - Surgical History Additional Surgical History: c section X 2 - Social History Smoking Status: Current Every Day Smoker Substance Use Type: None - Medications Home Medications: Home Medications Medication Instructions Recorded Confirmed Last Taken Type glyBURIDE [Glyburide] 2.5 mg PO DAILY 09/29/17 02/27/21 02/26/21 History ED Physical Exam - General Limitations: No Limitations General appearance: alert, in no apparent distress - Head Head exam: Present: atraumatic, normocephalic - Eye Eye exam: Present: normal appearance - ENT ENT exam: Present: mucous membranes dry (mildly ) - Respiratory Respiratory exam: Present: normal lung sounds bilaterally. Absent: respiratory distress, wheezes, rales, rhonchi, stridor, chest wall tenderness, accessory muscle use, decreased breath sounds, prolonged expiratory - Cardiovascular Cardiovascular Exam: Present: normal rhythm, tachycardia (mildly ), normal heart sounds. Absent: systolic murmur, diastolic murmur, rubs, gallop - Neurological Exam Neurological exam: Present: alert, oriented X3 - Psychiatric Psychiatric exam: Present: normal affect, normal mood - Skin Skin exam: Present: warm, dry, intact ED Course Vital Signs 02/27/21 02/27/21 10:48 15:15 Temperature 97.7 F Pulse Rate 119 H 55 L Respiratory 18 16 Rate Blood Pressure 111/85 114/85 [Left] O2 Sat by Pulse 98 100 Oximetry - Consultations Consultation #1: 02/27/21 14:[address] Marcelino, GI regarding pt presentation and results, he will consult on patient, advised does not need abx for colitis, advised will keep levaquin on for UTI and no further flagyl 02/27/21 14:[address] Nino, hospitalist who will accept and resume care of patient, will admit to hospital service ED Medical Decision Making - Lab Data Result diagrams: 02/27/21 11:19 02/27/21 11:19 Lab Results 02/27/21 02/27/21 02/27/21 Range/Units 11:19 11:19 11:19 WBC 3.1 L (4.5-11.0) K/mm3 RBC 4.42 (3.65-5.03) M/mm3 Hgb 15.1 H (10.1-14.3) gm/dl Hct 44.7 H (30.3-42.9) % MCV 101 H (79-97) fl MCH 34 H (28-32) pg MCHC 34 (30-34) % RDW 16.4 H (13.2-15.2) % Plt Count 234 (140-440) K/mm3 Lymph % (Auto) 39.4 H (13.4-35.0) % [place] % (Auto) 12.8 H (0.0-7.3) % Eos % (Auto) 2.4 (0.0-4.3) % Baso % (Auto) 1.5 (0.0-1.8) % Lymph # (Auto) 1.2 (1.2-5.4) K/mm3 [place] # (Auto) 0.4 (0.0-0.8) K/mm3 Eos # (Auto) 0.1 (0.0-0.4) K/mm3 Baso # (Auto) 0.0 (0.0-0.1) K/mm3 Seg Neutrophils % 43.9 (40.0-70.0) % Seg Neutrophils # 1.4 L (1.8-7.7) K/mm3 Sodium 140 (137-145) mmol/L Potassium 3.0 L (3.6-5.0) mmol/L Chloride 94.1 L (98-107) mmol/L Carbon Dioxide 23 (22-30) mmol/L Anion Gap 26 mmol/L BUN 23 H (7-17) mg/dL Creatinine 0.8 (0.6-1.2) mg/dL Estimated GFR > 60 ml/min BUN/Creatinine Ratio 29 % Glucose 167 H (65-100) mg/dL Calcium 10.6 H (8.4-10.2) mg/dL Magnesium 1.70 (1.7-2.3) mg/dL Total Bilirubin 1.90 H (0.1-1.2) mg/dL AST 379 H (5-40) units/L ALT 190 H (7-56) units/L Alkaline Phosphatase 142 H (35-129) units/L Total Creatine Kinase 18 L (30-135) units/L Total Protein 8.5 H (6.3-8.2) g/dL Albumin 4.7 (3.9-5) g/dL Albumin/Globulin Ratio 1.2 % Lipase 73 H (13-60) units/L HCG, Qual Negative (Negative) Urine Color (Yellow) Urine Turbidity (Clear) Urine pH (5.0-7.0) Ur Specific [place] (1.003-1.030) Urine Protein (Negative) mg/dL Urine Glucose (UA) (Negative) mg/dL Urine Ketones (Negative) mg/dL Urine Blood (Negative) Urine Nitrite (Negative) Urine Bilirubin (Negative) Urine Ictotest (Negative) Urine Urobilinogen (<2.0) mg/dL Ur Leukocyte Esterase (Negative) Urine WBC (Auto) (0.0-6.0) /HPF Urine RBC (Auto) (0.0-6.0) /HPF U Epithel Cells (Auto) (0-13.0) /HPF Urine Bacteria (Auto) (Negative) /HPF Hyaline Casts /LPF Granular Casts /LPF Urine Mucus /HPF Urine Opiates Screen Urine Methadone Screen Ur Barbiturates Screen Ur Phencyclidine Scrn Ur Amphetamines Screen U Benzodiazepines Scrn Urine Cocaine Screen U Marijuana (THC) Screen Drugs of Abuse Note Hepatitis A IgM Ab (NonReactive) Hep Bs Antigen (Negative) Hep B Core IgM Ab (NonReactive) Hepatitis C Antibody (NonReactive) 02/27/21 02/27/21 02/27/21 Range/Units 11:19 12:30 12:30 WBC (4.5-11.0) K/mm3 RBC (3.65-5.03) M/mm3 Hgb (10.1-14.3) gm/dl Hct (30.3-42.9) % MCV (79-97) fl MCH (28-32) pg MCHC (30-34) % RDW (13.2-15.2) % Plt Count (140-440) K/mm3 Lymph % (Auto) (13.4-35.0) % [place] % (Auto) (0.0-7.3) % Eos % (Auto) (0.0-4.3) % Baso % (Auto) (0.0-1.8) % Lymph # (Auto) (1.2-5.4) K/mm3 [place] # (Auto) (0.0-0.8) K/mm3 Eos # (Auto) (0.0-0.4) K/mm3 Baso # (Auto) (0.0-0.1) K/mm3 Seg Neutrophils % (40.0-70.0) % Seg Neutrophils # (1.8-7.7) K/mm3 Sodium (137-145) mmol/L Potassium (3.6-5.0) mmol/L Chloride (98-107) mmol/L Carbon Dioxide (22-30) mmol/L Anion Gap mmol/L BUN (7-17) mg/dL Creatinine (0.6-1.2) mg/dL Estimated GFR ml/min BUN/Creatinine Ratio % Glucose (65-100) mg/dL Calcium (8.4-10.2) mg/dL Magnesium (1.7-2.3) mg/dL Total Bilirubin (0.1-1.2) mg/dL AST (5-40) units/L ALT (7-56) units/L Alkaline Phosphatase (35-129) units/L Total Creatine Kinase (30-135) units/L Total Protein (6.3-8.2) g/dL Albumin (3.9-5) g/dL Albumin/Globulin Ratio % Lipase (13-60) units/L HCG, Qual (Negative) Urine Color [place] (Yellow) Urine Turbidity Cloudy (Clear) Urine pH 6.0 (5.0-7.0) Ur Specific [place] 1.018 (1.003-1.030) Urine Protein 100 mg/dl (Negative) mg/dL Urine Glucose (UA) Neg (Negative) mg/dL Urine Ketones 20 (Negative) mg/dL Urine Blood Mod (Negative) Urine Nitrite Pos (Negative) Urine Bilirubin Sm (Negative) Urine Ictotest Positive (Negative) Urine Urobilinogen 4.0 (<2.0) mg/dL Ur Leukocyte Esterase Mod (Negative) Urine WBC (Auto) 26.0 H (0.0-6.0) /HPF Urine RBC (Auto) 11.0 (0.0-6.0) /HPF U Epithel Cells (Auto) 29.0 H (0-13.0) /HPF Urine Bacteria (Auto) 4+ (Negative) /HPF Hyaline Casts 2 /LPF Granular Casts 7 /LPF Urine Mucus 3+ /HPF Urine Opiates Screen Negative Urine Methadone Screen Negative Ur Barbiturates Screen Negative Ur Phencyclidine Scrn Negative Ur Amphetamines Screen Negative U Benzodiazepines Scrn Negative Urine Cocaine Screen Negative U Marijuana (THC) Screen Negative Drugs of Abuse Note Disclamer Hepatitis A IgM Ab Non-reactive (NonReactive) Hep Bs Antigen Nonreactive (Negative) Hep B Core IgM Ab Non-reactive (NonReactive) Hepatitis C Antibody Non-reactive (NonReactive) - Radiology Data Radiology results: report reviewed Ordering Physician: SNEHA THOMPSON Date of Service: 02/27/21 Procedure(s): XR chest routine 2V Accession Number(s): [id number] cc: SNEHA THOMPSON Fluoro Time In Minutes: XR chest routine 2V INDICATION / CLINICAL INFORMATION: SOB. COMPARISON: 04/10/2020 FINDINGS: SUPPORT DEVICES: None. HEART /PULMONARY VASCULATURE: No significant abnormality. LUNGS / PLEURA: No significant pulmonary or pleural abnormality. No pneumothorax. ADDITIONAL FINDINGS: No significant additional findings. IMPRESSION: 1. No acute findings. Signer Name: Georgette Jansen MD Signed: 02/27/2021 12:07 PM Workstation Name: [id number] Transcribed By: JS Dictated By: GEORGETTE JANSEN MD Electronically Authenticated By: GEORGETTE JANSEN MD Signed Date/Time: 02/27/211206 DD/ 06 TD/TT: Ordering Physician: SNEHA THOMPSON Date of Service: 02/27/21 Procedure(s): CT abdomen pelvis w con Accession Number(s): [id number] cc: SNEHA THOMPSON CT ABDOMEN AND PELVIS WITH CONTRAST INDICATION: n/v, elevated LFTs CONTRAST: 100 cc Omnipaque 300 IV COMPARISON: 04/10/[address] scans at this location are performed using CT dose reduction for ALARA by means of automated exposure control. FINDINGS: Lung bases are clear. No pneumoperitoneum is seen. Prominent fatty attrition of the liver is seen, significantly worse than previous study. Liver is prominently enlarged and has a length of 20.8 cm now compared with 16.7 cm previously. No focal lesions are seen. Fatty infiltration and is mildly heterogenous. Spleen is not enlarged. Gallbladder is distended but shows no calculi or wall thickening. No biliary dilatation is seen. Pancreas appears within normal limits. No abdominal masses are seen. No urinary obstructive changes are noted. No lymphadenopathy is seen. No free fluid is noted. Small fatty midline hernias are again seen. No pelvic masses are noted. Tubal ligation clips are again seen bilaterally. No evidence of bowel obstruction is seen. Appendix is not visualized. Abnormal appearance to the colon is seen throughout the right and transverse portions continuing to the splenic flexure with wall edema noted. A significant portion of the descending colon is also mildly edematous in appearance. No evidence of perforation is seen. IMPRESSION: 1. Evidence of colitis involving much of the colon without obvious complication 2. Prominent fatty infiltration of the liver with prominent hepatomegaly, significantly worse than study less than one year ago Signer Name: Eliel Carbone MD Signed: 02/27/2021 1:27 PM Workstation Name: [id number] Transcribed By: GARTH Dictated By: Eliel Carbone MD Electronically Authenticated By: Eliel Carbone MD Signed Date/Time: 02/27/21 1327 DD/ 1318 TD/TT: - Medical Decision Making Patient is a 30-year-old female presents emergency room with complaints of nausea and vomiting that began 8 days ago. She states that she is not able to tolerate p.o. intake. She states that whenever she attempts to eat or drink something that is when she has the vomiting but otherwise without oral intake she does not have the vomiting. She states that she also has associated chills, generalized body aches, shortness of breath, and darker urine with odor. She denies any known sick contacts or recent travel. She has not been vaccinated for COVID-19. She denies any cough, chest pain, diarrhea, dysuria, abdominal pain. Patient denies any past medical history. No allergies to medications. Patient states that she had tubal ligation. Patient denies any drug use. She states that she is a previous heavy alcohol user, she states that she previously used to drink 1 pint of liquor a day, she states that she stopped drinking 1 month ago. Initial vitals with tachycardia cardia which improved upon repeat. No abdominal tenderness on exam. Lab significant for hypokalemia, elevated LFTs, elevated lipase. UA shows evidence of UTI. Chest x-ray: 1. No acute findings. CT abdomen pelvis with IV contrast:1. Evidence of colitis involving much of the colon without obvious complication 2. Prominent fatty infiltration of the liver with prominent hepatomegaly, significantly worse than study less than one year ago. Patient given IV fluids and IV antiemetics with symptoms. Repleted patient's potassium.spoke with Dr. Macrelino, GI regarding pt presentation and results, he will consult on patient, advised does not need abx for colitis, advised will keep levaquin on for UTI and no further flagyl. spoke to Dr. Nino, hospitalist who will accept and resume care of patient, will admit to hospital service. Discussed case with Dr. Jose Alejandro Randhawa who is agreeable with plan. discussed all findings with patient who is agreeable with admission. - Differential Diagnosis Dehydration, hepatitis, fatty liver, cirrhosis, enteritis, obstruction Critical care attestation.: If time is entered above; I have spent that time in minutes in the direct care of this critically ill patient, excluding procedure time. ED Disposition Clinical Impression: Colitis, Elevated LFTs, Serum lipase elevation, Fatty infiltration of liver UTI (urinary tract infection) Qualifiers: Urinary tract infection type: acute cystitis Hematuria presence: with hematuria Qualified Code(s): N30.01 - Acute cystitis with hematuria Disposition: 02 SHORT TERM HOSPITAL Is pt being admited?: Yes Does the pt Need Aspirin: No Condition: Fair Time of Disposition: 14:19
[2021-02-27 11:46] LABS: Eosinophils # (Auto) 0.1 K/mm3 (0.0-0.4); Eosinophils % (Auto) 2.4 % (0.0-4.3); Hematocrit 44.7 % (30.3-42.9); Hemoglobin 15.1 gm/dl (10.1-14.3); Lymphocytes # (Auto) 1.2 K/mm3 (1.2-5.4); Lymphocytes % (Auto) 39.4 % (13.4-35.0); Mean Corpuscular HGB Conc 34 % (30-34); Mean Corpuscular Volume 101 fl (79-97); Monocytes # (Auto) 0.4 K/mm3 (0.0-0.8); Monocytes % (Auto) 12.8 % (0.0-7.3); Platelet Count 234 K/mm3 (140-440); Red Blood Count 4.42 M/mm3 (3.65-5.03); Red Cell Distribution Width 16.4 % (13.2-15.2)
[2021-02-27 11:49] LABS: Basophils % (Auto) 1.5 % (0.0-1.8)
[2021-02-27 12:02] LABS: Alanine Aminotransferase 190 units/L (7-56); Albumin 4.7 g/dL (3.9-5); BUN/Creatinine Ratio 29; Blood Urea Nitrogen 23 mg/dL (7-17); Calcium 10.6 mg/dL (8.4-10.2); Hemolysis Index 3
--- NOTE | 2021-02-27 12:11 | XRay Report ---
XR chest routine 2V INDICATION / CLINICAL INFORMATION: SOB. COMPARISON: 04/10/2020 FINDINGS: SUPPORT DEVICES: None. HEART /PULMONARY VASCULATURE: No significant abnormality. LUNGS / PLEURA: No significant pulmonary or pleural abnormality. No pneumothorax. ADDITIONAL FINDINGS: No significant additional findings. IMPRESSION: 1. No acute findings. Signer Name: Dylon Jansen MD Signed: 02/27/2021 12:07 PM Workstation Name: [id number]
[2021-02-27] MEDS ORDERED: POTASSIUM CHLORIDE ER 20 MEQ TAB PO ONE (12:16)
[2021-02-27] MEDS ORDERED: METOCLOPRAMIDE 10 MG/2 ML INJ IV ONE (12:43)
[2021-02-27 12:52] LABS: Amphetamine Screen,Urine Negative; Benzodiazepines Screen,Urine Negative; Cannabinoid Screen,Urine Negative; Cocaine Screen,Urine Negative; Methadone Screen,Urine Negative; Opiate Screen,Urine Negative
[2021-02-27 13:00] LABS: Bilirubin,Urine SM (Negative); Blood,Urine MOD (Negative); Color,Urine Amber (Yellow)
[2021-02-27 13:01] LABS: Hepatitis C Virus Antibody Non-Reactive (NonReactive)
[2021-02-27 13:04] LABS: Bacteria,Urine 4+ /HPF (Negative); Granular Casts,Urine 7 /LPF; Hyaline Casts,Urine 2 /LPF; Mucus,Urine 3+ /HPF
[2021-02-27 13:05] LABS: Hepatitis B Surface Antigen Nonreactive (Negative)
[2021-02-27 13:06] LABS: Ictotest,Urine Positive (Negative)
--- NOTE | 2021-02-27 13:32 | Cat Scan Report ---
CT ABDOMEN AND PELVIS WITH CONTRAST INDICATION: n/v, elevated LFTs CONTRAST: 100 cc Omnipaque 300 IV COMPARISON: 04/10/[address] scans at this location are performed using CT dose reduction for ALARA by means of automated e xposure control. FINDINGS: Lung bases are clear. No pneumoperitoneum is seen. Prominent fatty attrition of the liver i s seen, significantly worse than previous study. Liver is prominently enlarged and has a length of 20 .8 cm now compared with 16.7 cm previously. No focal lesions are seen. Fatty infiltration and is mild ly heterogenous. Spleen is not enlarged. Gallbladder is distended but shows no calculi or wall thicke [place]. No biliary dilatation is seen. Pancreas appears within normal limits. No abdominal masses are seen. No urinary obstructive changes are noted. No lymphadenopathy is seen. N o free fluid is noted. Small fatty midline hernias are again seen. No pelvic masses are noted. Tubal ligation clips are again seen bilaterally. No evidence of bowel obstruction is seen. Appendix is not visualized. Abnormal appearance to the colo n is seen throughout the right and transverse portions continuing to the splenic flexure with wall ed cal noted. A significant portion of the descending colon is also mildly edematous in appearance. No e vidence of perforation is seen. IMPRESSION: 1. Evidence of colitis involving much of the colon without obvious complication 2. Prominent fatty infiltration of the liver with prominent hepatomegaly, significantly [facility] Signer Name: Eliel Carbone MD Signed: 02/27/2021 1:27 PM Workstation Name: [id number]
[2021-02-27] MEDS ORDERED: metroNIDAZOLE/NS 500 MG/100 ML 500 MG/100 ML BAG IV ONE (13:36)
--- NOTE | 2021-02-27 20:42 | History and Physical Report ---
History of Present Illness Date of examination: 02/27/21 Date of admission: 02/27/21 13:40 Chief complaint: Persistent vomiting for 8 days History of present illness: [id number] female presents with nausea no vomiting for several 8 days. Patient has history of hypertension. Vomiting is persistent and intermittent. Unable to keep anything down. Also diffuse abdominal pain. Crampy abdominal pain. Pain is about 6 on a scale of 1-10 no fever or chills. No diarrhea. Patient is not vaccinated against Covid. Patient used to drink alcohol excessively 1 month ago. No dysuria. Patient is not vaccinated for Covid. - Past Medical History --Hypertension: Yes --Diabetes: (Gestational Diabetes --Additional medical history: thyroid - Surgical History Additional Surgical History: c section X 2 - Social History Smoking Status: Current Every Day Smoker Substance Use Type: None - Medications Home Medications: Home Medications Medication Instructions Recorded Confirmed Last Taken Type glyBURIDE [Glyburide] 2.5 mg PO DAILY 09/29/17 02/27/21 02/26/21 History Review of Systems ROS: Constitutional no weight loss or weight gain no fever or chills HEENT no sore throat no post nasal drip no diplopia Neck no neck stiffness no lymph gland enlargement Chest and lungs no shortness of breath cough or wheezing CVS no chest pain no diaphoresis no palpitations GI persistent vomiting and abdominal pain Genitourinary system no dysuria no flank pain Musculoskeletal system no muscle pains no joint pains [employer] no syncope no seizures Skin no rash no itching Psychiatric no depression no homicidal or suicidal tendencies Hematologic no lymphedema or bruising Endocrine no polydipsia no polyuria no cold intolerance no heat intolerance Medications and Allergies Allergies Allergy/AdvReac Type Severity Reaction Status Date / Time turkey Allergy Unknown Verified 02/27/21 10:50 Home Medications Medication Instructions Recorded Confirmed Last Taken Type glyBURIDE [Glyburide] 2.5 mg PO DAILY 09/29/17 02/27/21 02/26/21 History Exam - Constitutional Vitals: Temp Pulse Resp BP Pulse Ox 97.7 F 55 L 16 114/85 100 02/27/21 10:48 02/27/21 15:15 02/27/21 15:15 02/27/21 15:15 02/27/21 15:15 General appearance: Present: mild distress, well-nourished - EENT Eyes: Present: PERRL ENT: hearing intact, clear oral mucosa - Neck Neck: Present: supple, normal ROM - Respiratory Respiratory effort: normal Respiratory: bilateral: CTA - Cardiovascular Heart rate: 78 Rhythm: regular Heart Sounds: Present: S1 & S2. Absent: rub, click - Extremities Extremities: pulses symmetrical, No edema Peripheral Pulses: within normal limits - Abdominal General gastrointestinal: Present: soft, tender, non-distended, normal bowel sounds Localized gastrointestinal: tender: diffuse Female genitourinary: Present: normal - Rectal Rectal Exam: deferred - Integumentary Integumentary: Present: clear, warm, dry - Musculoskeletal Musculoskeletal: gait normal, strength equal bilaterally - Psychiatric Psychiatric: appropriate mood/affect, intact judgment & insight - Neurologic Neurologic: CNII-XII intact, moves all extremities - Allied Health Allied health notes reviewed: nursing, case management Results - Labs CBC & Chem 7: 02/28/21 05:35 02/27/21 11:19 Labs: Laboratory Last Values WBC 3.1 K/mm3 (4.5-11.0) L 02/27/21 11:19 RBC 4.42 M/mm3 (3.65-5.03) 02/27/21 11:19 Hgb 15.1 gm/dl (10.1-14.3) H 02/27/21 11:19 Hct 44.7 % (30.3-42.9) H 02/27/21 11:19 MCV 101 fl (79-97) H 02/27/21 11:19 MCH 34 pg (28-32) H 02/27/21 11:19 MCHC 34 % (30-34) 02/27/21 11:19 RDW 16.4 % (13.2-15.2) H 02/27/21 11:19 Plt Count 234 K/mm3 (140-440) 02/27/21 11:19 Lymph % (Auto) 39.4 % (13.4-35.0) H 02/27/21 11:19 [place] % (Auto) 12.8 % (0.0-7.3) H 02/27/21 11:19 Eos % (Auto) 2.4 % (0.0-4.3) 02/27/21 11:19 Baso % (Auto) 1.5 % (0.0-1.8) 02/27/21 11:19 Lymph # (Auto) 1.2 K/mm3 (1.2-5.4) 02/27/21 11:19 [place] # (Auto) 0.4 K/mm3 (0.0-0.8) 02/27/21 11:19 Eos # (Auto) 0.1 K/mm3 (0.0-0.4) 02/27/21 11:19 Baso # (Auto) 0.0 K/mm3 (0.0-0.1) 02/27/21 11:19 Seg Neutrophils % 43.9 % (40.0-70.0) 02/27/21 11:19 Seg Neutrophils # 1.4 K/mm3 (1.8-7.7) L 02/27/21 11:19 Sodium 140 mmol/L (137-145) 02/27/21 11:19 Potassium 3.0 mmol/L (3.6-5.0) L 02/27/21 11:19 Chloride 94.1 mmol/L (98-107) L 02/27/21 11:19 Carbon Dioxide 23 mmol/L (22-30) 02/27/21 11:19 Anion Gap 26 mmol/L 02/27/21 11:19 BUN 23 mg/dL (7-17) H 02/27/21 11:19 Creatinine 0.8 mg/dL (0.6-1.2) 02/27/21 11:19 Estimated GFR > 60 ml/min 02/27/21 11:19 BUN/Creatinine Ratio 29 % 02/27/21 11:19 Glucose 167 mg/dL (65-100) H 02/27/21 11:19 Calcium 10.6 mg/dL (8.4-10.2) H 02/27/21 11:19 Magnesium 1.70 mg/dL (1.7-2.3) 02/27/21 11:19 Total Bilirubin 1.90 mg/dL (0.1-1.2) H 02/27/21 11:19 AST 379 units/L (5-40) H 02/27/21 11:19 ALT 190 units/L (7-56) H 02/27/21 11:19 Alkaline Phosphatase 142 units/L (35-129) H 02/27/21 11:19 Total Creatine Kinase 18 units/L (30-135) L 02/27/21 11:19 Total Protein 8.5 g/dL (6.3-8.2) H 02/27/21 11:19 Albumin 4.7 g/dL (3.9-5) 02/27/21 11:19 Albumin/Globulin Ratio 1.2 % 02/27/21 11:19 Lipase 73 units/L (13-60) H 02/27/21 11:19 HCG, Qual Negative (Negative) 02/27/21 11:19 Urine Color [place] (Yellow) 02/27/21 12:30 Urine Turbidity Cloudy (Clear) 02/27/21 12:30 Urine pH 6.0 (5.0-7.0) 02/27/21 12:30 Ur Specific [place] 1.018 (1.003-1.030) 02/27/21 12:30 Urine Protein 100 mg/dl mg/dL (Negative) 02/27/21 12:30 Urine Glucose (UA) Neg mg/dL (Negative) 02/27/21 12:30 Urine Ketones 20 mg/dL (Negative) 02/27/21 12:30 Urine Blood Mod (Negative) 02/27/21 12:30 Urine Nitrite Pos (Negative) 02/27/21 12:30 Urine Bilirubin Sm (Negative) 02/27/21 12:30 Urine Ictotest Positive (Negative) 02/27/21 12:30 Urine Urobilinogen 4.0 mg/dL (<2.0) 02/27/21 12:30 Ur Leukocyte Esterase Mod (Negative) 02/27/21 12:30 Urine WBC (Auto) 26.0 /HPF (0.0-6.0) H 02/27/21 12:30 Urine RBC (Auto) 11.0 /HPF (0.0-6.0) 02/27/21 12:30 U Epithel Cells (Auto) 29.0 /HPF (0-13.0) H 02/27/21 12:30 Urine Bacteria (Auto) 4+ /HPF (Negative) 02/27/21 12:30 Hyaline Casts 2 /LPF 02/27/21 12:30 Granular Casts 7 /LPF 02/27/21 12:30 Urine Mucus 3+ /HPF 02/27/21 12:30 Urine Opiates Screen Negative 02/27/21 12:30 Urine Methadone Screen Negative 02/27/21 12:30 Ur Barbiturates Screen Negative 02/27/21 12:30 Ur Phencyclidine Scrn Negative 02/27/21 12:30 Ur Amphetamines Screen Negative 02/27/21 12:30 U Benzodiazepines Scrn Negative 02/27/21 12:30 Urine Cocaine Screen Negative 02/27/21 12:30 U Marijuana (THC) Screen Negative 02/27/21 12:30 Drugs of Abuse Note Disclamer 02/27/21 12:30 Hepatitis A IgM Ab Non-reactive (NonReactive) 02/27/21 11:19 Hep Bs Antigen Nonreactive (Negative) 02/27/21 11:19 Hep B Core IgM Ab Non-reactive (NonReactive) 02/27/21 11:19 Hepatitis C Antibody Non-reactive (NonReactive) 02/27/21 11:19 Short CBC 02/27/21 02/28/21 Range/Units 11:19 05:35 WBC 3.1 L 3.0 L (4.5-11.0) K/mm3 Hgb 15.1 H 12.6 (10.1-14.3) gm/dl Hct 44.7 H 38.5 D (30.3-42.9) % Plt Count 234 208 (140-440) K/mm3 BMP 02/27/21 11:19 Sodium 140 Potassium 3.0 L Chloride 94.1 L Carbon Dioxide 23 BUN 23 H Creatinine 0.8 Glucose 167 H Calcium 10.6 H Cardiac Enzymes 02/27/21 Range/Units 11:19 Total Creatine Kinase 18 L (30-135) units/L Liver Function 02/27/21 Range/Units 11:19 Total Bilirubin 1.90 H (0.1-1.2) mg/dL AST 379 H (5-40) units/L ALT 190 H (7-56) units/L Alkaline Phosphatase 142 H (35-129) units/L Albumin 4.7 (3.9-5) g/dL Urine 02/27/21 Range/Units 12:30 Urine Color Martha (Yellow) Urine pH 6.0 (5.0-7.0) Ur Specific [place] 1.018 (1.003-1.030) Urine Protein 100 mg/dl (Negative) mg/dL Urine Glucose (UA) Neg (Negative) mg/dL - Imaging and Cardiology Chest x-ray: report reviewed CT scan - abdomen: report reviewed Imaging and Cardiology: Chest x-ray No acute findings Abdominal pelvis CT scanning Evidence of colitis involving much of the colon without obvious complications Prominent fatty infiltration of the liver with prominent hepatomegaly significantly worse than study less than 1 year ago. Assessment and Plan Advance Directives: Yes (Full code) VTE prophylaxis?: Chemical Plan of care discussed with patient/family: Yes - Patient Problems (1) Acute gastritis Current Visit: Yes Status: Acute Plan to address problem: Patient on IV Protonix IV Zofran and Reglan to control the vomiting (2) Acute colitis Current Visit: Yes Status: Acute Plan to address problem: Etiology unclear GI consult requested Patient initiated on IV Zosyn Clear liquids for now (3) Acute dehydration Current Visit: Yes Status: Acute Plan to address problem: IV fluids for now and symptomatic treatment with IV Reglan and IV Zofran (4) Transaminitis Current Visit: Yes Status: Acute Plan to address problem: Possibly secondary to alcoholic hepatitis Acute hepatitis profile is negative (5) UTI (urinary tract infection) Current Visit: Yes Status: Acute Qualifiers: Urinary tract infection type: acute cystitis Hematuria presence: with hematuria Qualified Code(s): N30.01 - Acute cystitis with hematuria Plan to address problem: Patient on Zosyn which will cover the urinary tract infection (6) Hypokalemia Current Visit: Yes Status: Acute Plan to address problem: Supplemented with IV potassium (7) Fatty infiltration of liver Current Visit: Yes Status: Chronic Plan to address problem: Increased liver size compared to the previous CAT scan of the abdomen Patient to be counseled about the effects of her alcohol intake Patient has stopped using alcohol but to reinforce the same (8) Hyperglycemia Current Visit: Yes Status: Acute Plan to address problem: Check hemoglobin A1c Patient may have borderline diabetes or full-fledged diabetes Accu-Cheks requested (9) Polycythemia due to fall in plasma volume Current Visit: Yes Status: Acute Plan to address problem: IV fluids for now (10) DVT prophylaxis Current Visit: Yes Status: Acute Plan to address problem: On anticoagulation and GI prophylaxis
[2021-02-27] MEDS ORDERED: MORPHINE 2 MG/1 ML INJ IV PRN (20:43)
[2021-02-27] MEDS ORDERED: ACETAMINOPHEN 650 MG RECT SUPP PR PRN (20:43)
[2021-02-27] MEDS ORDERED: HYDROmorphone 1 MG/1 ML INJ IV PRN (20:43)
[2021-02-27] MEDS: ONDANSETRON 4 MG/2 ML INJ IV PRN (22:56)
[2021-02-28] MEDS: METOCLOPRAMIDE 10 MG/2 ML INJ IV PRN (01:47)
[2021-02-28] MEDS: methylPREDNISolone Sod Succinate 125 MG/2 ML INJ IV SCH ×4 (01:47→21:54)
[2021-02-28] MEDS: PIPERACIL/TAZOBACTA 4.5/NS 100 4.5 GM/100 ML VIAL IV SCH ×4 (01:48→21:53)
[2021-02-28] MEDS: FAMOTIDINE 20 MG/2 ML INJ IV SCH ×3 (01:48→21:54)
[2021-02-28] MEDS: HEPARIN 5,000 UNIT/1 ML VIAL SUB-Q SCH ×3 (01:48→21:54)
[2021-02-28 06:21] LABS: Basophils % (Auto) 0.6 % (0.0-1.8); Eosinophils % (Auto) 0.2 % (0.0-4.3); Hematocrit 38.5 % (30.3-42.9); Hemoglobin 12.6 gm/dl (10.1-14.3); Lymphocytes # (Auto) 0.5 K/mm3 (1.2-5.4); Lymphocytes % (Auto) 16.1 % (13.4-35.0); Mean Corpuscular HGB Conc 33 % (30-34); Mean Corpuscular Volume 102 fl (79-97); Monocytes # (Auto) 0.2 K/mm3 (0.0-0.8); Monocytes % (Auto) 6.1 % (0.0-7.3); Platelet Count 208 K/mm3 (140-440); Red Blood Count 3.78 M/mm3 (3.65-5.03); Red Cell Distribution Width 16.6 % (13.2-15.2)
[2021-02-28] MEDS: ONDANSETRON 4 MG/2 ML INJ IV PRN (06:26)
[2021-02-28 06:42] LABS: Alanine Aminotransferase 142 units/L (7-56); Blood Urea Nitrogen 13 mg/dL (7-17); Calcium 9.8 mg/dL (8.4-10.2); Hemolysis Index 23
[2021-02-28 06:45] LABS: BUN/Creatinine Ratio 22
--- NOTE | 2021-02-28 07:46 | Gastroenterology Consultation ---
History of Present Illness - Reason for Consult Consult date: 02/28/21 Colitis, nausea Requesting physician: PEPITO GRAY - History of Present Illness Is a pleasant 30-year-old female who presents with intractable nausea for the past week Vomiting is persistent and intermittent. Unable to keep anything down. Also diffuse abdominal pain. Crampy abdominal pain that is mid to lower abdomen, stable, duration 9 days, not improving, constant, non radiating. Pain is about 6 on a scale of 1-10 no fever or chills. No diarrhea. CT scan of note demonstrates diffuse colitis and worsening fat infiltration of liver Patient does have a history of alcohol abuse Patient does have elevated LFTs as well - Past Medical History --Hypertension: Yes --Diabetes: (Gestational Diabetes --Additional medical history: thyroid - Surgical History Additional Surgical History: c section X 2 - Social History Smoking Status: Current Every Day Smoker Substance Use Type: None Obtained/updated/reviewed patient's current medications Medications and Allergies Allergies Allergy/AdvReac Type Severity Reaction Status Date / Time turkey Allergy Unknown Verified 02/27/21 10:50 Home Medications Medication Instructions Recorded Confirmed Last Taken Type glyBURIDE [Glyburide] 2.5 mg PO DAILY 09/29/17 02/27/21 02/26/21 History Active Meds: Active Medications Acetaminophen (Acetaminophen 650 Mg Rect Supp) 650 mg DE Q4H PRN PRN Reason: Pain MILD(1-3)/Fever >100.5/JORDAN Famotidine (Famotidine 20 Mg/2 Ml Inj) 20 mg IV BID [facility] Last Admin: 02/28/21 01:48 Dose: 20 mg Documented by: Heparin Sodium (Porcine) (Heparin 5,000 Unit/1 Ml Vial) 5,000 unit SUB-Q Q12HR RUCHI Last Admin: 02/28/21 01:48 Dose: 5,000 unit Documented by: Hydromorphone HCl (Hydromorphone 1 Mg/1 Ml Inj) 0.5 mg IV Q3H PRN PRN Reason: Pain , Severe (7-10) Sodium Chloride (Nacl 0.9% 1000 Ml) 1,000 mls @ 75 mls/hr IV DIRECT RUCHI Piperacillin Sod/Tazobactam Sod (Zosyn/Ns 4.5gm/100ml) 4.5 gm in 100 mls @ 200 mls/hr IV Q8HR RUCHI; Protocol Last Admin: 02/28/21 06:25 Dose: 200 mls/hr Documented by: Methylprednisolone Sodium Succinate (Methylprednisolone Sod Succinate 125 Mg/2 Ml Inj) 40 mg IV Q8HR [facility] Last Admin: 02/28/21 06:25 Dose: 40 mg Documented by: Metoclopramide HCl (Metoclopramide 10 Mg/2 Ml Inj) 10 mg IV Q6H PRN PRN Reason: Nausea And Vomiting Last Admin: 02/28/21 01:47 Dose: 10 mg Documented by: Morphine Sulfate (Morphine 2 Mg/1 Ml Inj) 2 mg IV Q4H PRN PRN Reason: Pain, Moderate (4-6) Ondansetron HCl (Ondansetron 4 Mg/2 Ml Inj) 4 mg IV Q8H PRN PRN Reason: Nausea And Vomiting Last Admin: 02/28/21 06:26 Dose: 4 mg Documented by: Sodium Chloride (Sodium Chloride 0.9% 10 Ml Flush Syringe) 10 ml IV BID [facility] Last Admin: 02/28/21 01:56 Dose: 10 ml Documented by: Sodium Chloride (Sodium Chloride 0.9% 10 Ml Flush Syringe) 10 ml IV PRN PRN PRN Reason: LINE FLUSH Review of Systems - Review of Systems All systems: negative (10 Systems reviewed and negative except as mentioned above in the history of present illness) Exam - Constitutional Vital Signs: Temp Pulse Resp BP Pulse Ox 97.7 F 73 13 114/85 100 02/27/21 10:48 02/27/21 19:31 02/27/21 19:31 02/27/21 19:31 02/28/21 06:18 General appearance: no acute distress - EENT Eyes: EOM intact ENT: hearing intact - Neck Neck: supple - Respiratory Respiratory effort: normal - Cardiovascular Rhythm: regular - Gastrointestinal General gastrointestinal: Present: soft, tender (Significant epigastric tenderness palpation and mild lower abdominal tenderness to palpation) - Labs CBC & Chem 7: 02/28/21 05:35 02/28/21 05:35 Lab Results: Laboratory Results - last 24 hr 02/27/21 02/27/21 02/27/21 11:19 11:19 11:19 WBC 3.1 L RBC 4.42 Hgb 15.1 H Hct 44.7 H MCV 101 H MCH 34 H MCHC 34 RDW 16.4 H Plt Count 234 Lymph % (Auto) 39.4 H [place] % (Auto) 12.8 H Eos % (Auto) 2.4 Baso % (Auto) 1.5 Lymph # (Auto) 1.2 [place] # (Auto) 0.4 Eos # (Auto) 0.1 Baso # (Auto) 0.0 Seg Neutrophils % 43.9 Seg Neutrophils # 1.4 L Sodium 140 Potassium 3.0 L Chloride 94.1 L Carbon Dioxide 23 Anion Gap 26 BUN 23 H Creatinine 0.8 Estimated GFR > 60 BUN/Creatinine Ratio 29 Glucose 167 H Calcium 10.6 H Magnesium 1.70 Total Bilirubin 1.90 H AST 379 H ALT 190 H Alkaline Phosphatase 142 H Total Creatine Kinase 18 L Total Protein 8.5 H Albumin 4.7 Albumin/Globulin Ratio 1.2 Lipase 73 H HCG, Qual Negative Urine Color Urine Turbidity Urine pH Ur Specific [place] Urine Protein Urine Glucose (UA) Urine Ketones Urine Blood Urine Nitrite Urine Bilirubin Urine Ictotest Urine Urobilinogen Ur Leukocyte Esterase Urine WBC (Auto) Urine RBC (Auto) U Epithel Cells (Auto) Urine Bacteria (Auto) Hyaline Casts Granular Casts Urine Mucus Urine Opiates Screen Urine Methadone Screen Ur Barbiturates Screen Ur Phencyclidine Scrn Ur Amphetamines Screen U Benzodiazepines Scrn Urine Cocaine Screen U Marijuana (THC) Screen Drugs of Abuse Note Hepatitis A IgM Ab Hep Bs Antigen Hep B Core IgM Ab Hepatitis C Antibody 02/27/21 02/27/21 02/27/21 11:19 12:30 12:30 WBC RBC Hgb Hct MCV MCH MCHC RDW Plt Count Lymph % (Auto) [place] % (Auto) Eos % (Auto) Baso % (Auto) Lymph # (Auto) [place] # (Auto) Eos # (Auto) Baso # (Auto) Seg Neutrophils % Seg Neutrophils # Sodium Potassium Chloride Carbon Dioxide Anion Gap BUN Creatinine Estimated GFR BUN/Creatinine Ratio Glucose Calcium Magnesium Total Bilirubin AST ALT Alkaline Phosphatase Total Creatine Kinase Total Protein Albumin Albumin/Globulin Ratio Lipase HCG, Qual Urine Color [place] Urine Turbidity Cloudy Urine pH 6.0 Ur Specific [place] 1.018 Urine Protein 100 mg/dl Urine Glucose (UA) Neg Urine Ketones 20 Urine Blood Mod Urine Nitrite Pos Urine Bilirubin Sm Urine Ictotest Positive Urine Urobilinogen 4.0 Ur Leukocyte Esterase Mod Urine WBC (Auto) 26.0 H Urine RBC (Auto) 11.0 U Epithel Cells (Auto) 29.0 H Urine Bacteria (Auto) 4+ Hyaline Casts 2 Granular Casts 7 Urine Mucus 3+ Urine Opiates Screen Negative Urine Methadone Screen Negative Ur Barbiturates Screen Negative Ur Phencyclidine Scrn Negative Ur Amphetamines Screen Negative U Benzodiazepines Scrn Negative Urine Cocaine Screen Negative U Marijuana (THC) Screen Negative Drugs of Abuse Note Disclamer Hepatitis A IgM Ab Non-reactive Hep Bs Antigen Nonreactive Hep B Core IgM Ab Non-reactive Hepatitis C Antibody Non-reactive 02/28/21 02/28/21 05:35 05:35 WBC 3.0 L RBC 3.78 Hgb 12.6 Hct 38.5 D MCV 102 H MCH 33 H MCHC 33 RDW 16.6 H Plt Count 208 Lymph % (Auto) 16.1 [place] % (Auto) 6.1 Eos % (Auto) 0.2 Baso % (Auto) 0.6 Lymph # (Auto) 0.5 L [place] # (Auto) 0.2 Eos # (Auto) 0.0 Baso # (Auto) 0.0 Seg Neutrophils % 77.0 H Seg Neutrophils # 2.3 Sodium 138 Potassium 3.4 L Chloride 96.5 L Carbon Dioxide 23 Anion Gap 22 BUN 13 Creatinine 0.6 Estimated GFR > 60 BUN/Creatinine Ratio 22 Glucose 154 H Calcium 9.8 Magnesium Total Bilirubin 1.40 H AST 230 H ALT 142 H Alkaline Phosphatase 114 Total Creatine Kinase Total Protein 7.3 Albumin 4.0 Albumin/Globulin Ratio 1.2 Lipase HCG, Qual Urine Color Urine Turbidity Urine pH Ur Specific [place] Urine Protein Urine Glucose (UA) Urine Ketones Urine Blood Urine Nitrite Urine Bilirubin Urine Ictotest Urine Urobilinogen Ur Leukocyte Esterase Urine WBC (Auto) Urine RBC (Auto) U Epithel Cells (Auto) Urine Bacteria (Auto) Hyaline Casts Granular Casts Urine Mucus Urine Opiates Screen Urine Methadone Screen Ur Barbiturates Screen Ur Phencyclidine Scrn Ur Amphetamines Screen U Benzodiazepines Scrn Urine Cocaine Screen U Marijuana (THC) Screen Drugs of Abuse Note Hepatitis A IgM Ab Hep Bs Antigen Hep B Core IgM Ab Hepatitis C Antibody Assessment and Plan Regarding patient's symptoms-differential diagnosis is alcohol related gastritis and inflammation to the liver from the alcohol as well; hep panel negative. Rest of the differential diagnosis includes infection related such as simple viral gastroenteritis, Covid, etc. Recommend cont supportive care, Continue twice daily H2 jonnie, and consider Covid testing given still with high prevalence locally ok for diet to advance as tolerated Endoscopy/colonoscopy not indicated at this juncture - Patient Problems (1) Epigastric abdominal pain Current Visit: Yes Status: Acute (2) Acute colitis Current Visit: Yes Status: Acute (3) Acute gastritis Current Visit: Yes Status: Acute (4) Elevated LFTs Current Visit: Yes Status: Acute
--- NOTE | 2021-02-28 16:21 | Progress Note ---
Assessment and Plan Assessment and plan: #Acute colitis #Nausea and vomiting #Acute dehydration -CT abdomen/pelvis (02/27/2021) revealed diffuse colitis and fatty infiltration of liver. -GI consulted; appreciate recommendations. -Currently on IV Zosyn (initiated on admission). Will likely discontinue in a.m. Low clinical suspicion for infectious etiology at this time. -Continue with IV Zofran and Reglan as needed -Encourage patient to increase p.o. intake; patient expressed understanding. Initially started on IV fluids upon admission. -Diet increased to full regular diet. Will assess if patient could tolerate p.o. intake. #Fatty infiltration of liver #Elevated transaminases #Alcohol dependence #Alcohol abuse counseling -Likely secondary to prolonged EtOH history -AST 230, ALT 142, T bili 1.4 -Negative acute hepatitis profile -CT abdomen/pelvis (02/27/2021) revealed a significantly increased liver size compared to previous imaging approximately 1 year ago. -Encouraged patient to significantly decrease EtOH consumption. Patient expressed understanding, and stated that the last time she drank was approximately 1 month ago. She admits to increased alcohol intake after the d eath of her brother. -Time: +15 minutes #E. coli UTI -Currently on Zosyn, which will cover UTI treatment -We will reassess with patient. If asymptomatic, will discontinue antibiotics. #Hypokalemia -Potassium 3.4. -Repleted. Continue to monitor #Hyperglycemia -Pending hemoglobin A1c #DVT prophylaxis -Continue current anticoagulation Disposition Plan: Possible discharge in morning Total Time Spent with Patient (Minutes): 40 History Interval history: No acute events overnight. Hospitalist Physical - Constitutional Vitals: Temp Pulse Resp BP Pulse Ox 97.7 F 57 L 13 111/79 100 02/27/21 10:48 02/28/21 12:13 02/28/21 12:13 02/28/21 12:13 02/28/21 12:13 General appearance: Present: no acute distress, well-nourished - EENT Eyes: Present: PERRL, EOM intact ENT: hearing intact, clear oral mucosa, dentition normal - Neck Neck: Present: supple, normal ROM - Respiratory Respiratory effort: normal - Cardiovascular Rhythm: regular Heart Sounds: Present: S1 & S2 - Extremities Extremities: no ischemia, pulses intact, pulses symmetrical, No edema, normal temperature, normal color Peripheral Pulses: within normal limits - Abdominal General gastrointestinal: soft, tender, non-distended, normal bowel sounds Localized gastrointestinal: tender: diffuse - Integumentary Integumentary: Present: clear, warm, dry - Psychiatric Psychiatric: appropriate mood/affect, intact judgment & insight, memory intact, cooperative - Neurologic Neurologic: CNII-XII intact, moves all extremities - Allied Health Allied health notes reviewed: nursing Results - Labs CBC & Chem 7: 02/28/21 05:35 02/28/21 05:35 Labs: Laboratory Last Values WBC 3.0 K/mm3 (4.5-11.0) L 02/28/21 05:35 RBC 3.78 M/mm3 (3.65-5.03) 02/28/21 05:35 Hgb 12.6 gm/dl (10.1-14.3) 02/28/21 05:35 Hct 38.5 % (30.3-42.9) D 02/28/21 05:35 MCV 102 fl (79-97) H 02/28/21 05:35 MCH 33 pg (28-32) H 02/28/21 05:35 MCHC 33 % (30-34) 02/28/21 05:35 RDW 16.6 % (13.2-15.2) H 02/28/21 05:35 Plt Count 208 K/mm3 (140-440) 02/28/21 05:35 Lymph % (Auto) 16.1 % (13.4-35.0) 02/28/21 05:35 [place] % (Auto) 6.1 % (0.0-7.3) 02/28/21 05:35 Eos % (Auto) 0.2 % (0.0-4.3) 02/28/21 05:35 Baso % (Auto) 0.6 % (0.0-1.8) 02/28/21 05:35 Lymph # (Auto) 0.5 K/mm3 (1.2-5.4) L 02/28/21 05:35 [place] # (Auto) 0.2 K/mm3 (0.0-0.8) 02/28/21 05:35 Eos # (Auto) 0.0 K/mm3 (0.0-0.4) 02/28/21 05:35 Baso # (Auto) 0.0 K/mm3 (0.0-0.1) 02/28/21 05:35 Seg Neutrophils % 77.0 % (40.0-70.0) H 02/28/21 05:35 Seg Neutrophils # 2.3 K/mm3 (1.8-7.7) 02/28/21 05:35 Sodium 138 mmol/L (137-145) 02/28/21 05:35 Potassium 3.4 mmol/L (3.6-5.0) L 02/28/21 05:35 Chloride 96.5 mmol/L (98-107) L 02/28/21 05:35 Carbon Dioxide 23 mmol/L (22-30) 02/28/21 05:35 Anion Gap 22 mmol/L 02/28/21 05:35 BUN 13 mg/dL (7-17) 02/28/21 05:35 Creatinine 0.6 mg/dL (0.6-1.2) 02/28/21 05:35 Estimated GFR > 60 ml/min 02/28/21 05:35 BUN/Creatinine Ratio 22 % 02/28/21 05:35 Glucose 154 mg/dL (65-100) H 02/28/21 05:35 Calcium 9.8 mg/dL (8.4-10.2) 02/28/21 05:35 Magnesium 1.70 mg/dL (1.7-2.3) 02/27/21 11:19 Total Bilirubin 1.40 mg/dL (0.1-1.2) H 02/28/21 05:35 AST 230 units/L (5-40) H 02/28/21 05:35 ALT 142 units/L (7-56) H 02/28/21 05:35 Alkaline Phosphatase 114 units/L (35-129) 02/28/21 05:35 Total Creatine Kinase 18 units/L (30-135) L 02/27/21 11:19 Total Protein 7.3 g/dL (6.3-8.2) 02/28/21 05:35 Albumin 4.0 g/dL (3.9-5) 02/28/21 05:35 Albumin/Globulin Ratio 1.2 % 02/28/21 05:35 Lipase 73 units/L (13-60) H 02/27/21 11:19 HCG, Qual Negative (Negative) 02/27/21 11:19 Urine Color [place] (Yellow) 02/27/21 12:30 Urine Turbidity Cloudy (Clear) 02/27/21 12:30 Urine pH 6.0 (5.0-7.0) 02/27/21 12:30 Ur Specific [place] 1.018 (1.003-1.030) 02/27/21 12:30 Urine Protein 100 mg/dl mg/dL (Negative) 02/27/21 12:30 Urine Glucose (UA) Neg mg/dL (Negative) 02/27/21 12:30 Urine Ketones 20 mg/dL (Negative) 02/27/21 12:30 Urine Blood Mod (Negative) 02/27/21 12:30 Urine Nitrite Pos (Negative) 02/27/21 12:30 Urine Bilirubin Sm (Negative) 02/27/21 12:30 Urine Ictotest Positive (Negative) 02/27/21 12:30 Urine Urobilinogen 4.0 mg/dL (<2.0) 02/27/21 12:30 Ur Leukocyte Esterase Mod (Negative) 02/27/21 12:30 Urine WBC (Auto) 26.0 /HPF (0.0-6.0) H 02/27/21 12:30 Urine RBC (Auto) 11.0 /HPF (0.0-6.0) 02/27/21 12:30 U Epithel Cells (Auto) 29.0 /HPF (0-13.0) H 02/27/21 12:30 Urine Bacteria (Auto) 4+ /HPF (Negative) 02/27/21 12:30 Hyaline Casts 2 /LPF 02/27/21 12:30 Granular Casts 7 /LPF 02/27/21 12:30 Urine Mucus 3+ /HPF 02/27/21 12:30 Urine Opiates Screen Negative 02/27/21 12:30 Urine Methadone Screen Negative 02/27/21 12:30 Ur Barbiturates Screen Negative 02/27/21 12:30 Ur Phencyclidine Scrn Negative 02/27/21 12:30 Ur Amphetamines Screen Negative 02/27/21 12:30 U Benzodiazepines Scrn Negative 02/27/21 12:30 Urine Cocaine Screen Negative 02/27/21 12:30 U Marijuana (THC) Screen Negative 02/27/21 12:30 Drugs of Abuse Note Disclamer 02/27/21 12:30 Hepatitis A IgM Ab Non-reactive (NonReactive) 02/27/21 11:19 Hep Bs Antigen Nonreactive (Negative) 02/27/21 11:19 Hep B Core IgM Ab Non-reactive (NonReactive) 02/27/21 11:19 Hepatitis C Antibody Non-reactive (NonReactive) 02/27/21 11:19 Microbiology: Microbiology 02/27/21 12:30 Urine,Clean Catch Urine Culture - Preliminary Gram Negative César Active Medications - Current Medications Current Medications: Generic Name Dose Route Start Last Admin Trade Name Freq PRN Reason Stop Dose Admin Acetaminophen 650 mg 02/27/21 20:43 Acetaminophen 650 Mg Rect Supp UT Q4H PRN Pain MILD(1-3)/Fever >100.5/JORDAN Famotidine 20 mg 02/27/21 22:00 02/28/21 12:05 Famotidine 20 Mg/2 Ml Inj IV 20 mg BID RUCHI Administration Heparin Sodium (Porcine) 5,000 unit 02/27/21 22:00 02/28/21 12:05 Heparin 5,000 Unit/1 Ml Vial SUB-Q 5,000 unit Q12HR RUCHI Administration Hydromorphone HCl 0.5 mg 02/27/21 20:43 Hydromorphone 1 Mg/1 Ml Inj IV Q3H PRN Pain , Severe (7-10) Sodium Chloride 1,000 mls @ 75 mls/hr 02/27/21 20:45 Nacl 0.9% 1000 Ml IV DIRECT RUCHI Piperacillin Sod/Tazobactam Sod 4.5 gm in 100 mls @ 200 mls/hr 02/27/21 22:00 02/28/21 14:12 Zosyn/Ns 4.5gm/100ml IV 200 mls/hr Q8HR RUCHI Administration Protocol Methylprednisolone Sodium Succinate 40 mg 02/27/21 22:00 02/28/21 14:11 Methylprednisolone Sod Succinate 125 Mg/2 Ml Inj IV 40 mg Q8HR RUCHI Administration Metoclopramide HCl 10 mg 02/27/21 20:43 02/28/21 01:47 Metoclopramide 10 Mg/2 Ml Inj IV 10 mg Q6H PRN Administration Nausea And Vomiting Morphine Sulfate 2 mg 02/27/21 20:43 Morphine 2 Mg/1 Ml Inj IV Q4H PRN Pain, Moderate (4-6) Ondansetron HCl 4 mg 02/27/21 20:43 02/28/21 06:26 Ondansetron 4 Mg/2 Ml Inj IV 4 mg Q8H PRN Administration Nausea And Vomiting Sodium Chloride 10 ml 02/27/21 22:00 02/28/21 12:05 Sodium Chloride 0.9% 10 Ml Flush Syringe IV 10 ml BID RUCHI Administration Sodium Chloride 10 ml 02/27/21 20:43 Sodium Chloride 0.9% 10 Ml Flush Syringe IV PRN PRN LINE FLUSH
[2021-02-28] MEDS: SODIUM CHLORIDE 0.9% 1000 ML 1,000 ML IV SCH (21:35)
[2021-03-01] MEDS: SODIUM CHLORIDE 0.9% 1000 ML 1,000 ML IV SCH ×2 (05:41→08:43)
[2021-03-01] MEDS: PIPERACIL/TAZOBACTA 4.5/NS 100 4.5 GM/100 ML VIAL IV SCH ×2 (05:41→15:38)
[2021-03-01] MEDS: methylPREDNISolone Sod Succinate 125 MG/2 ML INJ IV SCH ×2 (05:42→15:36)
[2021-03-01 06:18] VITALS: BP 125/83
[2021-03-01 07:31] LABS: Basophils % (Auto) 0.2 % (0.0-1.8); Hematocrit 35.6 % (30.3-42.9); Hemoglobin 11.8 gm/dl (10.1-14.3); Lymphocytes # (Auto) 0.9 K/mm3 (1.2-5.4); Mean Corpuscular HGB Conc 33 % (30-34); Mean Corpuscular Volume 102 fl (79-97); Monocytes # (Auto) 0.6 K/mm3 (0.0-0.8); Monocytes % (Auto) 10.2 % (0.0-7.3); Platelet Count 180 K/mm3 (140-440); Red Cell Distribution Width 16.4 % (13.2-15.2)
[2021-03-01 07:56] LABS: Blood Urea Nitrogen 6 mg/dL (7-17); Hemolysis Index 1
[2021-03-01 08:05] LABS: BUN/Creatinine Ratio 12
[2021-03-01] MEDS ORDERED: ACETAMINOPHEN 325 MG TAB PO SCH (11:00)
[2021-03-01] MEDS ORDERED: POTASSIUM CHLORIDE ER 20 MEQ TAB PO ONE (11:45)
[2021-03-01] MEDS ORDERED: MAGNESIUM SULFATE 1 GM in SODIUM CHLORIDE 0.9% 50 ML IV ONE (11:46)
--- NOTE | 2021-03-01 11:48 | Progress Note ---
Assessment and Plan Assessment and plan: #Acute colitis #Nausea and vomiting-improved #Acute dehydration-resolved -CT abdomen/pelvis (02/27/2021) revealed diffuse colitis and fatty infiltration of liver. -GI consulted; appreciate recommendations. -Currently on IV Zosyn (initiated on admission). Will likely discontinue in a.m. Low clinical suspicion for infectious etiology at this time. -Continue with IV Zofran and Reglan as needed -Encourage patient to increase p.o. intake; patient expressed understanding. Initially started on IV fluids upon admission. -Diet increased to full regular diet. Will assess if patient could tolerate p.o. intake. #Fatty infiltration of liver #Elevated transaminases #Alcohol dependence #Alcohol abuse counseling -Likely secondary to prolonged EtOH history -AST 230, ALT 142, T bili 1.4 -Negative acute hepatitis profile -CT abdomen/pelvis (02/27/2021) revealed a significantly increased liver size compared to previous imaging approximately 1 year ago. -Encouraged patient to significantly decrease EtOH consumption. Patient expressed understanding, and stated that the last time she drank was approximately 1 month ago. She admits to increased alcohol intake after the of her brother. -Time: +15 minutes #E. coli UTI -Currently on Zosyn, which will cover UTI treatment -We will reassess with patient. If asymptomatic, will discontinue antibiotics. #Hypokalemia -Potassium 3.1 -Repleted. Continue to monitor #Hypomagnesemia -Magnesium 1.3 -Repleted. Continue to monitor #Hyperglycemia -Pending hemoglobin A1c #DVT prophylaxis -Continue current anticoagulation #Discharge planning -Possible discharge today if patient can tolerate regular diet. Patient will be discharged with antiemetics and oral pain control. Patient expressed understanding. Disposition Plan: Pending clinical improvement. Possible discharge today. Total Time Spent with Patient (Minutes): 30 History Interval history: No acute events overnight. Hospitalist Physical - Constitutional Vitals: Temp Pulse Resp BP Pulse Ox 98.9 F 55 L 20 125/83 100 03/01/21 06:14 03/01/21 06:14 03/01/21 06:14 03/01/21 06:14 03/01/21 06:14 General appearance: Present: mild distress, well-nourished - EENT Eyes: Present: PERRL, EOM intact ENT: hearing intact, clear oral mucosa, dentition normal - Neck Neck: Present: supple, normal ROM - Respiratory Respiratory effort: normal - Cardiovascular Rhythm: regular Heart Sounds: Present: S1 & S2 - Extremities Extremities: no ischemia, pulses intact, pulses symmetrical, No edema, normal temperature, normal color Peripheral Pulses: within normal limits - Abdominal General gastrointestinal: soft, non-tender, non-distended, normal bowel sounds - Integumentary Integumentary: Present: clear, warm, dry - Psychiatric Psychiatric: appropriate mood/affect, intact judgment & insight, memory intact, cooperative - Neurologic Neurologic: CNII-XII intact - Allied Health Allied health notes reviewed: nursing Results - Labs CBC & Chem 7: 03/01/21 06:30 03/01/21 06:30 Labs: Laboratory Last Values WBC 6.0 K/mm3 (4.5-11.0) 03/01/21 06:30 RBC 3.50 M/mm3 (3.65-5.03) L 03/01/21 06:30 Hgb 11.8 gm/dl (10.1-14.3) 03/01/21 06:30 Hct 35.6 % (30.3-42.9) 03/01/21 06:30 MCV 102 fl (79-97) H 03/01/21 06:30 MCH 34 pg (28-32) H 03/01/21 06:30 MCHC 33 % (30-34) 03/01/21 06:30 RDW 16.4 % (13.2-15.2) H 03/01/21 06:30 Plt Count 180 K/mm3 (140-440) 03/01/21 06:30 Lymph % (Auto) 15.0 % (13.4-35.0) 03/01/21 06:30 [place] % (Auto) 10.2 % (0.0-7.3) H 03/01/21 06:30 Eos % (Auto) 0.0 % (0.0-4.3) 03/01/21 06:30 Baso % (Auto) 0.2 % (0.0-1.8) 03/01/21 06:30 Lymph # (Auto) 0.9 K/mm3 (1.2-5.4) L 03/01/21 06:30 [place] # (Auto) 0.6 K/mm3 (0.0-0.8) 03/01/21 06:30 Eos # (Auto) 0.0 K/mm3 (0.0-0.4) 03/01/21 06:30 Baso # (Auto) 0.0 K/mm3 (0.0-0.1) 03/01/21 06:30 Seg Neutrophils % 74.6 % (40.0-70.0) H 03/01/21 06:30 Seg Neutrophils # 4.5 K/mm3 (1.8-7.7) 03/01/21 06:30 Sodium 138 mmol/L (137-145) 03/01/21 06:30 Potassium 3.1 mmol/L (3.6-5.0) L 03/01/21 06:30 Chloride 99.4 mmol/L (98-107) 03/01/21 06:30 Carbon Dioxide 24 mmol/L (22-30) 03/01/21 06:30 Anion Gap 18 mmol/L 03/01/21 06:30 BUN 6 mg/dL (7-17) L 03/01/21 06:30 Creatinine 0.5 mg/dL (0.6-1.2) L 03/01/21 06:30 Estimated GFR > 60 ml/min 03/01/21 06:30 BUN/Creatinine Ratio 12 % 03/01/21 06:30 Glucose 135 mg/dL (65-100) H 03/01/21 06:30 Calcium 9.0 mg/dL (8.4-10.2) 03/01/21 06:30 Phosphorus 3.10 mg/dL (2.5-4.5) 03/01/21 06:30 Magnesium 1.30 mg/dL (1.7-2.3) L 03/01/21 06:30 Total Bilirubin 1.40 mg/dL (0.1-1.2) H 02/28/21 05:35 AST 230 units/L (5-40) H 02/28/21 05:35 ALT 142 units/L (7-56) H 02/28/21 05:35 Alkaline Phosphatase 114 units/L (35-129) 02/28/21 05:35 Total Creatine Kinase 18 units/L (30-135) L 02/27/21 11:19 Total Protein 7.3 g/dL (6.3-8.2) 02/28/21 05:35 Albumin 4.0 g/dL (3.9-5) 02/28/21 05:35 Albumin/Globulin Ratio 1.2 % 02/28/21 05:35 Lipase 73 units/L (13-60) H 02/27/21 11:19 HCG, Qual Negative (Negative) 02/27/21 11:19 Urine Color [place] (Yellow) 02/27/21 12:30 Urine Turbidity Cloudy (Clear) 02/27/21 12:30 Urine pH 6.0 (5.0-7.0) 02/27/21 12:30 Ur Specific [place] 1.018 (1.003-1.030) 02/27/21 12:30 Urine Protein 100 mg/dl mg/dL (Negative) 02/27/21 12:30 Urine Glucose (UA) Neg mg/dL (Negative) 02/27/21 12:30 Urine Ketones 20 mg/dL (Negative) 02/27/21 12:30 Urine Blood Mod (Negative) 02/27/21 12:30 Urine Nitrite Pos (Negative) 02/27/21 12:30 Urine Bilirubin Sm (Negative) 02/27/21 12:30 Urine Ictotest Positive (Negative) 02/27/21 12:30 Urine Urobilinogen 4.0 mg/dL (<2.0) 02/27/21 12:30 Ur Leukocyte Esterase Mod (Negative) 02/27/21 12:30 Urine WBC (Auto) 26.0 /HPF (0.0-6.0) H 02/27/21 12:30 Urine RBC (Auto) 11.0 /HPF (0.0-6.0) 02/27/21 12:30 U Epithel Cells (Auto) 29.0 /HPF (0-13.0) H 02/27/21 12:30 Urine Bacteria (Auto) 4+ /HPF (Negative) 02/27/21 12:30 Hyaline Casts 2 /LPF 02/27/21 12:30 Granular Casts 7 /LPF 02/27/21 12:30 Urine Mucus 3+ /HPF 02/27/21 12:30 Urine Opiates Screen Negative 02/27/21 12:30 Urine Methadone Screen Negative 02/27/21 12:30 Ur Barbiturates Screen Negative 02/27/21 12:30 Ur Phencyclidine Scrn Negative 02/27/21 12:30 Ur Amphetamines Screen Negative 02/27/21 12:30 U Benzodiazepines Scrn Negative 02/27/21 12:30 Urine Cocaine Screen Negative 02/27/21 12:30 U Marijuana (THC) Screen Negative 02/27/21 12:30 Drugs of Abuse Note Disclamer 02/27/21 12:30 Hepatitis A IgM Ab Non-reactive (NonReactive) 02/27/21 11:19 Hep Bs Antigen Nonreactive (Negative) 02/27/21 11:19 Hep B Core IgM Ab Non-reactive (NonReactive) 02/27/21 11:19 Hepatitis C Antibody Non-reactive (NonReactive) 02/27/21 11:19 Microbiology: Microbiology 02/27/21 12:30 Urine,Clean Catch Urine Culture - Final [place] Ascorbata [place]/IV: Voiding Method Toilet Active Medications - Current Medications Current Medications: Generic Name Dose Route Start Last Admin Trade Name Freq PRN Reason Stop Dose Admin Acetaminophen 650 mg 03/01/21 11:00 Acetaminophen 325 Mg Tab PO Q6H RUCHI Famotidine 20 mg 02/27/21 22:00 02/28/21 21:54 Famotidine 20 Mg/2 Ml Inj IV 20 mg BID RUCHI Administration Heparin Sodium (Porcine) 5,000 unit 02/27/21 22:00 02/28/21 21:54 Heparin 5,000 Unit/1 Ml Vial SUB-Q 5,000 unit Q12HR RUCHI Administration Hydromorphone HCl 0.5 mg 02/27/21 20:43 Hydromorphone 1 Mg/1 Ml Inj IV Q3H PRN Pain , Severe (7-10) Sodium Chloride 1,000 mls @ 75 mls/hr 02/27/21 20:45 03/01/21 08:43 Nacl 0.9% 1000 Ml IV 75 mls/hr DIRECT RUCHI Administration Piperacillin Sod/Tazobactam Sod 4.5 gm in 100 mls @ 200 mls/hr 02/27/21 22:00 03/01/21 05:41 Zosyn/Ns 4.5gm/100ml IV 200 mls/hr Q8HR RUCHI Administration Protocol Methylprednisolone Sodium Succinate 40 mg 02/27/21 22:00 03/01/21 05:42 Methylprednisolone Sod Succinate 125 Mg/2 Ml Inj IV 40 mg Q8HR RUCHI Administration Metoclopramide HCl 10 mg 02/27/21 20:43 02/28/21 01:47 Metoclopramide 10 Mg/2 Ml Inj IV 10 mg Q6H PRN Administration Nausea And Vomiting Morphine Sulfate 2 mg 02/27/21 20:43 Morphine 2 Mg/1 Ml Inj IV Q4H PRN Pain, Moderate (4-6) Ondansetron HCl 4 mg 02/27/21 20:43 02/28/21 06:26 Ondansetron 4 Mg/2 Ml Inj IV 4 mg Q8H PRN Administration Nausea And Vomiting Sodium Chloride 10 ml 02/27/21 22:00 03/01/21 01:58 Sodium Chloride 0.9% 10 Ml Flush Syringe IV 10 ml BID RUCHI Administration Sodium Chloride 10 ml 02/27/21 20:43 Sodium Chloride 0.9% 10 Ml Flush Syringe IV PRN PRN LINE FLUSH
[2021-03-01] MEDS: HEPARIN 5,000 UNIT/1 ML VIAL SUB-Q SCH (12:00)
[2021-03-01] MEDS: FAMOTIDINE 20 MG/2 ML INJ IV SCH (12:00)
--- NOTE | 2021-03-01 15:24 | Discharge Summary ---
Providers - Providers Date of Admission: 02/27/21 13:40 Date of discharge: 03/01/21 Attending physician: UZMA VILA MD 02/27/21 14:11 Consult to Physician [CONS] Stat Comment: Consulting Provider: THA MOTA Physician Instructions: Reason For Exam: elevated LFTs, pancolitis Primary care physician: [facility] REMOVER Hospitalization Reason for admission: Enteritis Condition: Fair Pertinent studies: Reviewed Hospital course: The patient is a 30-year-old female past medical history of hypertension who presented with worsening abdominal pain and and p.o. intolerance for approximately 1 week. The patient was evaluated in the emergency room and was found to have diffuse enteritis per CT abdomen/pelvis. The patient was also found to have a UA consistent with UTI; however, the patient denies any symptoms of frequency or hematuria. The patient was prophylactically started on IV Zosyn for possible infectious enteritis. Patient was able to tolerate regular diet with mild abdominal pain and nausea that was relieved with acetaminophen and Zofran, respectively. The patient was counseled on avoiding NSAIDs and slowly introducing solid food foods into her diet. The patient expressed understanding. Patient will be discharging home with family. Disposition: 01 HOME / SELF CARE / HOMELESS Final Discharge Diagnosis (Prints w/discharge instructions): Enteritis; asymptomatic cystitis Time spent for discharge: 30 min Core Measure Documentation - Palliative Care Palliative Care/ Comfort Measures: Not Applicable - Core Measures Any of the following diagnoses?: none - VTE Discharge Requirements Deep Vein Thrombosis/Pulmonary Embolism Present on Admission: No Has pt received <5 days of overlap therapy or INR<2.0: No (Not indicated) Anticoagulant overlap therapy prescribed at discharge: No Contraindication No Overlap Therapy order at DC: Not Indicated - Acute IN Discharge Requirements Aspirin at discharge: No Reason for no aspirin on DC: Medical contraindication SHEEBA/ARB for LVSD if EF <40%: Not Applicable (Not indicated) Reason for no SHEEBA/ARB: Medical contraindication (Not indicated) Beta jonnie at discharge: No Reason for no beta jonnie on DC: Medical contraindication (Not indicated) Statin for LDL = or >100 mg/dl on DC: Not Applicable Reason for no statin on DC: Medical contraindication (Not indicated) - Heart Failure Discharge Requirements SHEEBA/ARB for LVSD if EF <40%: Not Applicable Reason for no SHEEBA/ARB: Medical contraindication (Not indicate) Beta jonnie at discharge: No Reason for no beta jonnie on DC: Medical contraindication - Stroke Discharge Requirements Statin for LDL = or >70 mg/dl on DC: Not Applicable Reason for no statin on DC: Not Indicated Anticoag for atrial fib/atrial flutter: Not Applicable Reason for no anticoag for AF/F on DC: Not Indicated Antithrombotic for ischemic stroke: No Reason for no antithrombotic on DC: Not Indicated Exam - Physical Exam Narrative exam: Please refer to patient note by Dr. Vila on 03/01/2021 for physical exam. - Constitutional Vitals: Temp Pulse Resp BP Pulse Ox 98.9 F 55 L 20 125/83 100 03/01/21 06:14 03/01/21 06:14 03/01/21 06:14 03/01/21 06:14 03/01/21 06:14 Plan Activity: no restrictions Diet: advance as tolerated Health Concerns: Patient should return back to the ER if experience any of the following: Inability to tolerate oral intake, worsening abdominal pain, chest pain/pressure, shortness of breath, weakness, or confusion. Assessment: Discharging home with family. Follow up with: PRIMARY CARE, [Primary Care Provider] - 10 Days Prescriptions: Acetaminophen 500 mg PO Q6HR PRN #30 capsule PRN Reason: Pain, Moderate (4-6) Ondansetron (Nf) [Zofran TAB] 8 mg PO Q8HR PRN #30 tablet PRN Reason: Nausea And Vomiting
[2021-03-01] MEDS: METOCLOPRAMIDE 10 MG/2 ML INJ IV PRN (15:46)
--- NOTE | 2021-03-01 20:53 | Gastroenterology Progress Note ---
Assessment and Plan She is improving, can DC if labs return normal and tolerating diet Regarding patient's symptoms-differential diagnosis is alcohol related gastritis and inflammation to the liver from the alcohol as well; hep panel negative. Rest of the differential diagnosis includes infection related such as simple viral gastroenteritis etc. She should f/u with us outpatient for evaluation of the liver - Patient Problems (1) Epigastric abdominal pain Status: Acute (2) Acute colitis Status: Acute (3) Acute gastritis Status: Acute (4) Elevated LFTs Status: Acute Subjective Date of service: 03/01/21 Principal diagnosis: N/V Interval history: PAtient seen at 9AM She reports continuing to improve, tolerating diet Objective - Constitutional Vitals: Temp Pulse Resp BP Pulse Ox 98.9 F 55 L 17 125/83 100 03/01/21 06:14 03/01/21 06:14 03/01/21 10:00 03/01/21 06:14 03/01/21 10:00 General appearance: no acute distress - EENT Eyes: EOM intact - Neck Neck: supple - Respiratory Respiratory effort: normal - Gastrointestinal General gastrointestinal: Present: soft - Labs CBC & Chem 7: 03/01/21 06:30 03/01/21 06:30 Labs: Laboratory Results - last 24 hr 03/01/21 03/01/21 06:30 06:30 WBC 6.0 RBC 3.50 L Hgb 11.8 Hct 35.6 MCV 102 H MCH 34 H MCHC 33 RDW 16.4 H Plt Count 180 Lymph % (Auto) 15.0 [place] % (Auto) 10.2 H Eos % (Auto) 0.0 Baso % (Auto) 0.2 Lymph # (Auto) 0.9 L [place] # (Auto) 0.6 Eos # (Auto) 0.0 Baso # (Auto) 0.0 Seg Neutrophils % 74.6 H Seg Neutrophils # 4.5 Sodium 138 Potassium 3.1 L Chloride 99.4 Carbon Dioxide 24 Anion Gap 18 BUN 6 L Creatinine 0.5 L Estimated GFR > 60 BUN/Creatinine Ratio 12 Glucose 135 H Calcium 9.0 Phosphorus 3.10 Magnesium 1.30 L
== END 2021-03-01 16:47 | disposition home or self-care (01) ==
LOC: ED 10:41 → 3A 13:40
PROVIDERS: ADMIT Internal Medicine; ATTEND Student in an Organized Health Care Education/Training Program
DX: K52.9 Noninfective gastroenteritis and colitis, unspecified (principal); K29.00 Acute gastritis without bleeding; E86.0 Dehydration; N39.0 Urinary tract infection, site not specified; B96.20 Unspecified Escherichia coli [E. coli] as the cause of diseases classified elsewhere; E87.6 Hypokalemia; K70.0 Alcoholic fatty liver; R74.01 Elevation of levels of liver transaminase levels; R74.8 Abnormal levels of other serum enzymes; R73.9 Hyperglycemia, unspecified; D75.1 Secondary polycythemia; E83.42 Hypomagnesemia; F10.20 Alcohol dependence, uncomplicated; I10 Essential (primary) hypertension; F17.200 Nicotine dependence, unspecified, uncomplicated; Z79.899 Other long term (current) drug therapy
CPT/HCPCS: 36415; 71046; 74177; 80048; 80053; 80074; 80307; 81001; 82550; 83690; 83735; 84100; 84703; 85025; 87076; 87086; 87186; 96361; 96365; 96366; 96367; 96372; 96375; 96376; 99285; G0378; J1644; J1956; J2405; J2543; J2765; J2930; J3475; J7030; Q9967

== ENCOUNTER 2021-08-03 20:00 | Emergency (ER) | payer MEDICAID ==
[2021-08-03 22:43] LABS: Amorphous Crystals,Urine 3+; Bacteria,Urine 1+ /HPF (Negative); Bilirubin,Urine NEG (Negative); Blood,Urine LG (Negative); Color,Urine Yellow (Yellow)
[2021-08-04] MEDS ORDERED: FAMOTIDINE 20 MG/2 ML INJ IV ONE (01:24)
[2021-08-04] MEDS ORDERED: MORPHINE 4 MG/1 ML INJ IV ONE (01:24)
[2021-08-04] MEDS ORDERED: SODIUM CHLORIDE 0.9% 1000 ML 1,000 ML IV ONE (01:24)
[2021-08-04] MEDS ORDERED: ONDANSETRON 4 MG/2 ML INJ IV ONE ×2 (01:24→04:19)
[2021-08-04 02:21] LABS: Alanine Aminotransferase 95 units/L (7-56); Albumin 4.5 g/dL (3.9-5); Blood Urea Nitrogen 9 mg/dL (7-17); Calcium 9.6 mg/dL (8.4-10.2); Hemolysis Index 7
[2021-08-04 02:43] LABS: BUN/Creatinine Ratio 13
[2021-08-04] MEDS ORDERED: cefTRIAXone/NS 1 GM/50 ML 1 GM/50 ML BAG IV ONE (02:49)
[2021-08-04] MEDS ORDERED: POTASSIUM CHLORIDE ER 20 MEQ TAB PO ONE (02:49)
[2021-08-04 02:55] LABS: Hematocrit 39.4 % (30.3-42.9); Hemoglobin 13.6 gm/dl (10.1-14.3); Lymphocytes % (Auto) 15.9 % (13.4-35.0); Mean Corpuscular HGB Conc 35 % (30-34); Mean Corpuscular Volume 97 fl (79-97); Platelet Count 265 K/mm3 (140-440); Red Blood Count 4.08 M/mm3 (3.65-5.03); Red Cell Distribution Width 14.8 % (13.2-15.2)
[2021-08-04 02:56] LABS: Basophils % (Auto) 0.5 % (0.0-1.8); Eosinophils # (Auto) 0.1 K/mm3 (0.0-0.4); Eosinophils % (Auto) 0.7 % (0.0-4.3); Lymphocytes # (Auto) 1.2 K/mm3 (1.2-5.4); Monocytes # (Auto) 1.1 K/mm3 (0.0-0.8); Monocytes % (Auto) 14.4 % (0.0-7.3)
--- NOTE | 2021-08-04 03:44 | Cat Scan Report ---
CT ABDOMEN AND PELVIS WITH CONTRAST INDICATION / CLINICAL INFORMATION: abdominal pain, N/V. TECHNIQUE: Axial CT images were obtained through the abdomen and pelvis after Omnipaque 300, 100 cc I V contrast. All CT scans at this location are performed using CT dose reduction for ALARA by means o f automated exposure control. COMPARISON: 02/27/2021. FINDINGS: LOWER CHEST: No significant abnormality. LIVER: Large, fatty liver. GALLBLADDER: No significant abnormality. BILE DUCTS: No significant abnormality. PANCREAS: No significant abnormality. SPLEEN: No significant abnormality. ADRENALS: No significant abnormality. RIGHT KIDNEY / URETER: Moderate distention of the right renal collecting system and ureter. A small a mount of fluid is seen adjacent to the right kidney. No distal ureteral stone. 1 mm nonobstructing ca lyceal stone at the upper pole. LEFT KIDNEY / URETER: 6 mm nonobstructing calyceal stone. STOMACH / SMALL BOWEL: No significant abnormality. COLON: No significant abnormality. APPENDIX: No significant abnormality. PERITONEUM: No free fluid. No free air. No fluid collection. LYMPH NODES: No significant adenopathy. VASCULAR STRUCTURES: No significant abnormality. URINARY BLADDER: 3 mm stone at the bladder base. REPRODUCTIVE ORGANS: Previous bilateral tubal ligation. ADDITIONAL FINDINGS: Small fat-containing ventral hernia in the midline above the umbilicus. Small fa t-containing umbilical hernia. SKELETAL SYSTEM: No significant abnormality. IMPRESSION: 1. Recently passed right ureteral stone which lies within the bladder. Residual dilatation of the rig ht renal collecting system and ureter. Mild fluid is seen adjacent to the right kidney. 2. Large, fatty liver. 3. Fat-containing ventral and umbilical hernias. 4. Small nonobstructing calyceal stones. Signer Name: Marc Partida MD Signed: 08/04/2021 3:40 AM Workstation Name: [id number]
[2021-08-04] MEDS ORDERED: KETOROLAC 30 MG/1 ML INJ IV ONE (04:19)
--- NOTE | 2021-08-04 04:49 | Emergency Department Report ---
ED Abdominal Pain HPI - General Chief Complaint: Abdominal Pain Stated Complaint: STOMACH AND BACK PAIN PUI?: No Source: patient Mode of arrival: Ambulatory Limitations: No Limitations - History of Present Illness Initial Comments: Patient is a 30-year-old -Burmese female with a history of hypertension who presented to the ED with complaint of acute onset persistent right flank pain that radiates to the right upper quadrant and right lower quadrant areas with intractable nausea and vomiting for the last 1 week, worse in the last 2 days. Patient states that she has not been able to keep anything down because of persistent nausea and vomiting and right flank pain. Patient denies vaginal bleeding, vaginal discharge, fever, chills, cough, sore throat, traumatic injury, hematemesis, hematochezia, change in vision, dysuria, urinary frequency and urgency or diarrhea. MD Complaint: abdominal pain (Right flank and right upper quadrant and right lower quadrant pain), flank pain (Right flank pain), other (Nausea and vomiting) -: Sudden, week(s) (1) Location: RUQ, RLQ, R flank Radiation: RUQ, RLQ, R flank Migration to: no migration Severity scale (0 -10): 8 Quality: aching, sharp Consistency: constant Improves With: nothing Worsens With: vomiting Associated Symptoms: denies other symptoms, nausea, vomiting, anorexia. denies: diarrhea, chills, constipation, dysuria, hematemesis, hematochezia, melena, hematuria, syncope - Related Data Home Medications Medication Instructions Recorded Confirmed Last Taken glyBURIDE [Glyburide] 2.5 mg PO DAILY 09/29/17 02/27/21 02/26/21 Previous Rx's Medication Instructions Recorded Last Taken Type Acetaminophen 500 mg PO Q6HR PRN #30 capsule 03/01/21 Unknown Rx Ondansetron (Nf) [Zofran TAB] 8 mg PO Q8HR PRN #30 tablet 03/01/21 Unknown Rx Famotidine [Pepcid] 20 mg PO BID #40 tablet 08/04/21 Unknown Rx Ketorolac [Toradol] 10 mg PO Q8H PRN #20 tab 08/04/21 Unknown Rx Ondansetron [Zofran Odt] 4 mg PO Q6HR PRN #20 tab.rapdis 08/04/21 Unknown Rx Sulfamethoxazole/Trimethoprim 1 each PO Q12H #20 tab 08/04/21 Unknown Rx [Bactrim DS TAB] traMADoL [Ultram] 50 mg PO Q6HR PRN #12 tablet 08/04/21 Unknown Rx Allergies Allergy/AdvReac Type Severity Reaction Status Date / Time turkey Allergy Unknown Verified 02/27/21 10:50 ED Review of Systems ROS: Stated complaint: STOMACH AND BACK PAIN Other details as noted in HPI Constitutional: denies: chills, fever Eyes: denies: eye pain, eye discharge, vision change ENT: denies: ear pain, throat pain Respiratory: denies: cough, shortness of breath, wheezing Cardiovascular: denies: chest pain, palpitations Endocrine: no symptoms reported. denies: excessive sweating, flushing Gastrointestinal: abdominal pain, nausea, vomiting, other (Right flank pain). denies: diarrhea Genitourinary: denies: urgency, dysuria, frequency, hematuria, discharge, abnormal menses, dyspareunia Musculoskeletal: denies: back pain, joint swelling, arthralgia Skin: denies: rash, lesions Neurological: denies: headache, weakness, paresthesias Psychiatric: denies: anxiety, depression Hematological/Lymphatic: denies: easy bleeding, easy bruising ED Past Medical Hx - Past Medical History Previous Medical History?: Yes Hx Hypertension: Yes Hx Congestive Heart Failure: No Hx Diabetes: (Gestational Diabetes) Hx Deep Vein Thrombosis: No Hx Liver Disease: (fatty liver) Hx Renal Disease: No Hx Sickle Cell Disease: No Hx Seizures: No Hx Asthma: No Hx COPD: No Hx HIV: No Additional medical history: thyroid - Surgical History Past Surgical History?: Yes Additional Surgical History: c section X 2 - Social History Smoking Status: Current Some Day Smoker Substance Use Type: Alcohol - Medications Home Medications: Home Medications Medication Instructions Recorded Confirmed Last Taken Type glyBURIDE [Glyburide] 2.5 mg PO DAILY 09/29/17 02/27/21 02/26/21 History Acetaminophen 500 mg PO Q6HR PRN #30 capsule 03/01/21 Unknown Rx Ondansetron (Nf) [Zofran TAB] 8 mg PO Q8HR PRN #30 tablet 03/01/21 Unknown Rx Famotidine [Pepcid] 20 mg PO BID #40 tablet 08/04/21 Unknown Rx Ketorolac [Toradol] 10 mg PO Q8H PRN #20 tab 08/04/21 Unknown Rx Ondansetron [Zofran Odt] 4 mg PO Q6HR PRN #20 tab.rapdis 08/04/21 Unknown Rx Sulfamethoxazole/Trimethoprim 1 each PO Q12H #20 tab 08/04/21 Unknown Rx [Bactrim DS TAB] traMADoL [Ultram] 50 mg PO Q6HR PRN #12 tablet 08/04/21 Unknown Rx ED Physical Exam - General Limitations: No Limitations General appearance: alert, in no apparent distress - Head Head exam: Present: atraumatic, normocephalic, normal inspection - Eye Eye exam: Present: normal appearance, PERRL, EOMI Pupils: Present: normal accommodation - ENT ENT exam: Present: normal exam, normal orophraynx, mucous membranes moist, TM's normal bilaterally, normal external ear exam - Neck Neck exam: Present: normal inspection, full ROM. Absent: tenderness - Respiratory Respiratory exam: Present: normal lung sounds bilaterally. Absent: respiratory distress, wheezes, rales, rhonchi, chest wall tenderness, accessory muscle use, decreased breath sounds, prolonged expiratory - Cardiovascular Cardiovascular Exam: Present: regular rate, normal rhythm, normal heart sounds. Absent: systolic murmur, diastolic murmur, rubs, gallop - GI/Abdominal GI/Abdominal exam: Present: soft, tenderness (Palpable right flank, right CVA tenderness, right lower quadrant and right upper quadrant tenderness), normal bowel sounds. Absent: guarding, rebound, hyperactive bowel sounds, hypoactive bowel sounds - Bi-manual exam: Present: other (Pelvic exam deferred at this time) - Extremities Exam Extremities exam: Present: normal inspection, full ROM, normal capillary refill - Back Exam Back exam: Present: normal inspection, full ROM. Absent: tenderness, CVA tenderness (R), CVA tenderness (L), muscle spasm, paraspinal tenderness, vertebral tenderness - Neurological Exam Neurological exam: Present: alert, oriented X3, CN II-XII intact, normal gait, reflexes normal - Psychiatric Psychiatric exam: Present: normal affect, normal mood - Skin Skin exam: Present: warm, dry, intact, normal color. Absent: rash ED Course Vital Signs 08/03/21 08/04/21 21:02 02:10 Temperature 98.9 F Pulse Rate 87 Respiratory 18 14 Rate Blood Pressure 140/102 [Right] O2 Sat by Pulse 99 Oximetry ED Medical Decision Making - Lab Data Result diagrams: 08/04/21 01:44 08/04/21 01:44 - Radiology Data Radiology results: report reviewed, image reviewed [facility] [address] [place] [address] Cat Scan Report Signed Patient: SHERINE ALCAZAR MR#: [id number] : 1990 Acct:[id number] Age/Sex: 30 / F ADM Date: 08/03/21 Loc: ED Attending Dr: Ordering Physician: SNEHA VELASQUEZ Date of Service: 08/04/21 Procedure(s): CT abdomen pelvis w con Accession Number(s): [id number] cc: SNEHA VELASQUEZ CT ABDOMEN AND PELVIS WITH CONTRAST INDICATION / CLINICAL INFORMATION: abdominal pain, N/V. TECHNIQUE: Axial CT images were obtained through the abdomen and pelvis after Omnipaque 300, 100 [address] scans at this location are performed using CT dose reduction for ALARA by means of automated exposure control. COMPARISON: 02/27/2021. FINDINGS: LOWER CHEST: No significant abnormality. LIVER: Large, fatty liver. GALLBLADDER: No significant abnormality. BILE DUCTS: No significant abnormality. PANCREAS: No significant abnormality. SPLEEN: No significant abnormality. ADRENALS: No significant abnormality. RIGHT KIDNEY / URETER: Moderate distention of the right renal collecting system and ureter. A small amount of fluid is seen adjacent to the right kidney. No distal ureteral stone. 1 mm nonobstructing calyceal stone at the upper pole. LEFT KIDNEY / URETER: 6 mm nonobstructing calyceal stone. STOMACH / SMALL BOWEL: No significant abnormality. COLON: No significant abnormality. APPENDIX: No significant abnormality. PERITONEUM: No free fluid. No free air. No fluid collection. LYMPH NODES: No significant adenopathy. VASCULAR STRUCTURES: No significant abnormality. URINARY BLADDER: 3 mm stone at the bladder base. REPRODUCTIVE ORGANS: Previous bilateral tubal ligation. ADDITIONAL FINDINGS: Small fat-containing ventral hernia in the midline above the umbilicus. Small fat-containing umbilical hernia. SKELETAL SYSTEM: No significant abnormality. IMPRESSION: 1. Recently passed right ureteral stone which lies within the bladder. Residual dilatation of the right renal collecting system and ureter. Mild fluid is seen adjacent to the right kidney. 2. Large, fatty liver. 3. Fat-containing ventral and umbilical hernias. 4. Small nonobstructing calyceal stones. Signer Name: Marc Partida MD Signed: 08/04/2021 3:40 AM Workstation Name: [id number] Transcribed By: KARELY Dictated By: Marc Partida MD Electronically Authenticated By: Marc Partida MD Signed Date/Time: 08/04/21339 DD/ 2 TD/TT: - Medical Decision Making This is a 30-year-old -Burmese female with a history of hypertension who presented to the ED with complaint of acute onset persistent right flank pain that radiates to the right upper quadrant and right lower quadrant areas with intractable nausea and vomiting for the last 1 week, worse in the last 2 days. Patient states that she has not been able to keep anything down because of persistent nausea and vomiting and right flank pain. In the ED, patient is alert and oriented x3 and is not in distress but appears to be in significant pain. Patient was treated for pain in the ED, also given antiemetics and antacids as well as normal saline 1 L IV bolus x1. Lab test results were reviewed and are all nonactionable except for acute hyponatremia 131 mmol/L, hypokalemia of 3.1 mmol/L and hypochloremia of 87 mmol/L. AST of 197, ALT of 95 and alk phos of 185 and significant urinary tract infection in urinalysis. Abdomen pelvis CT scan with contrast showed recently passed right ureteral stone which lies within the bladder. Residual dilatation of the right renal collecting system and ureter. Mild fluid is seen adjacent to the right kidney. It also showed a large, fatty liver and a fat-containing ventral and umbilical hernias. It also showed small nonobstructing calyceal stones. On reevaluation, patient's pain is well controlled medication. Patient has not had any nausea or vomiting while in the ED. Patient was therefore discharged home on pain medications and advised follow-up with her primary care physician in 5 to 7 days for reevaluation. Patient was also referred to the general surgeon on-call Dr. Hayden for follow-up in the outpatient for cholelithiasis. Patient advised return to the ED immediately if symptoms get worse. - Differential Diagnosis Cholelithiasis; kidney stone; diverticulitis; appendicitis; UTI; colitis Critical care attestation.: If time is entered above; I have spent that time in minutes in the direct care of this critically ill patient, excluding procedure time. ED Disposition Clinical Impression: Acute abdominal pain in right flank, Nausea and vomiting in adult patient, Kidney stone on right side, Cholelithiasis without cholecystitis, Acute urinary tract infection Disposition: 01 HOME / SELF CARE / HOMELESS Is pt being admited?: No Does the pt Need Aspirin: No Condition: Stable Instructions: Abdominal Pain (ED), Kidney Stones, [id number], Renal Colic, [id number], Cholelithiasis, [id number], Nausea and Vomiting, Adult, [id number], Urinary Tract Infection, Adult, [id number] Additional Instructions: Take medication with food, drink plenty of fluids and follow-up with your primary care physician in 7 to 10 days for reevaluation. Consider following up with the general surgeon on-call Dr. Hyaden for evaluation of a cholelithiasis or gallstones. Therefore maintain a clear liquid diet for 12 to 24 hours, drink plenty of fluids and return to the ED immediately if symptoms get worse. Prescriptions: Sulfamethoxazole/Trimethoprim [Bactrim DS TAB] 1 each PO Q12H #20 tab Famotidine [Pepcid] 20 mg PO BID #40 tablet Ketorolac [Toradol] 10 mg PO Q8H PRN #20 tab PRN Reason: Pain traMADoL [Ultram] 50 mg PO Q6HR PRN #12 tablet PRN Reason: Pain Ondansetron [Zofran Odt] 4 mg PO Q6HR PRN #20 tab.rapdis PRN Reason: Nausea Referrals: [facility] [Provider Group] - 7-10 days SHALINI HAYDEN DO [Staff Physician] - 3-5 Days Forms: Work/School Release Form(ED) Time of Disposition: 04:57 Print Language: TURKMEN
[2021-08-04 05:24] VITALS: BP 125/86
== END 2021-08-04 05:25 | disposition home or self-care (01) ==
LOC: ED 20:00
DX: K80.20 Calculus of gallbladder without cholecystitis without obstruction (principal); N20.0 Calculus of kidney; I10 Essential (primary) hypertension; F17.200 Nicotine dependence, unspecified, uncomplicated; Z98.890 Other specified postprocedural states; Z88.8 Allergy status to other drugs, medicaments and biological substances; Z79.899 Other long term (current) drug therapy
CPT/HCPCS: 36415; 74177; 80053; 81001; 83690; 84703; 85025; 87086; 96361; 96365; 96375; 96376; 99284; J0696; J1885; J2270; J2405; J3490; J7030; Q9967; Q0162

== ENCOUNTER 2022-01-08 10:28 | Inpatient (IN) | payer MEDICAID ==
[2022-01-08 11:55] LABS: Basophils % (Auto) 0.6 % (0.0-1.8); Eosinophils % (Auto) 0.3 % (0.0-4.3); Hematocrit 35.3 % (30.3-42.9); Hemoglobin 11.6 gm/dl (10.1-14.3); Lymphocytes # (Auto) 1.7 K/mm3 (1.2-5.4); Lymphocytes % (Auto) 22.4 % (13.4-35.0); Mean Corpuscular HGB Conc 33 % (30-34); Mean Corpuscular Volume 109 fl (79-97); Monocytes # (Auto) 0.4 K/mm3 (0.0-0.8); Monocytes % (Auto) 5.4 % (0.0-7.3); Platelet Count 332 K/mm3 (140-440); Red Blood Count 3.23 M/mm3 (3.65-5.03); Red Cell Distribution Width 18.7 % (13.2-15.2)
[2022-01-08 12:15] LABS: Alanine Aminotransferase 55 units/L (7-56); Albumin 3.9 g/dL (3.9-5); Blood Urea Nitrogen 3 mg/dL (7-17); Calcium 8.8 mg/dL (8.4-10.2); Hemolysis Index 6
[2022-01-08 12:27] LABS: BUN/Creatinine Ratio 10
--- NOTE | 2022-01-08 17:27 | Ultrasound Report ---
US abdomen limited INDICATION / CLINICAL INFORMATION: Right upper quadrant pain. COMPARISON: CT from 08/04/2021. FINDINGS: PANCREAS: No significant abnormality. ABDOMINAL AORTA: No significant abnormality. IVC: No significant abnormality. LIVER: Liver measures 18 cm. The liver demonstrates increased echogenicity. No focal hepatic lesion. PORTAL VEIN: Normal hepatopedal blood flow in the main portal vein. GALLBLADDER: Prominent sludge and possible small stones within the gallbladder. Gallbladder wall is t hickened, measuring 9 mm. No significant pericholecystic fluid. Positive sonographic Nguyen sign. BILE DUCTS: Common bile duct measures 4 mm. No significant abnormality. RIGHT KIDNEY: No significant abnormality visualized. FREE FLUID: None. ADDITIONAL FINDINGS: None. IMPRESSION: 1. Prominent sludge with possible stones in the gallbladder with gallbladder wall thickening and posi tive sonographic Nguyen sign. These findings are concerning for acute cholecystitis. 2. Enlarged, fatty liver. Signer Name: Dylon Jansen MD Signed: 01/08/2022 5:22 PM Workstation Name: [id number]
[2022-01-09] MEDS ORDERED: MORPHINE 4 MG/1 ML INJ IV ONE (02:43)
[2022-01-09] MEDS ORDERED: PIPERACILLIN/TAZOBACTAM 3.375 3.375 GM/50 ML BAG IV ONE (02:43)
[2022-01-09] MEDS ORDERED: ONDANSETRON 4 MG/2 ML INJ IV ONE (02:55)
--- NOTE | 2022-01-09 03:21 | Emergency Department Report ---
ED Abdominal Pain HPI - General Chief Complaint: Abdominal Pain Stated Complaint: STOMACH PAIN/SWELLING Time Seen by Provider: 01/09/22 02:41 Source: patient Mode of arrival: Ambulatory Limitations: No Limitations - History of Present Illness Initial Comments: Patient is a 31-year-old female presenting the ED with complaint of worsening right upper quadrant pain. She reports intermittent right upper quadrant pain over the past several weeks. States today her symptoms were much more severe. She reports associated nausea and vomiting. Severity scale (0 -10): 10 - Related Data Home Medications Medication Instructions Recorded Confirmed Last Taken glyBURIDE [Glyburide] 2.5 mg PO DAILY 09/29/17 02/27/21 02/26/21 Previous Rx's Medication Instructions Recorded Last Taken Type Acetaminophen 500 mg PO Q6HR PRN #30 capsule 03/01/21 Unknown Rx Ondansetron (Nf) [Zofran TAB] 8 mg PO Q8HR PRN #30 tablet 03/01/21 Unknown Rx Famotidine [Pepcid] 20 mg PO BID #40 tablet 08/04/21 Unknown Rx Ketorolac [Toradol] 10 mg PO Q8H PRN #20 tab 08/04/21 Unknown Rx Ondansetron [Zofran Odt] 4 mg PO Q6HR PRN #20 tab.rapdis 08/04/21 Unknown Rx Sulfamethoxazole/Trimethoprim 1 each PO Q12H #20 tab 08/04/21 Unknown Rx [Bactrim DS TAB] traMADoL [Ultram] 50 mg PO Q6HR PRN #12 tablet 08/04/21 Unknown Rx Allergies Allergy/AdvReac Type Severity Reaction Status Date / Time turkey Allergy Unknown Verified 02/27/21 10:50 ED Review of Systems ROS: Stated complaint: STOMACH PAIN/SWELLING Other details as noted in HPI Constitutional: denies: chills, fever Respiratory: no symptoms reported Cardiovascular: denies: chest pain, palpitations Endocrine: no symptoms reported Gastrointestinal: abdominal pain, nausea, vomiting Musculoskeletal: denies: back pain, joint swelling, arthralgia Skin: denies: rash, lesions Neurological: denies: headache, weakness, paresthesias Psychiatric: denies: anxiety, depression ED Past Medical Hx - Past Medical History Hx Hypertension: Yes Hx Congestive Heart Failure: No Hx Diabetes: (Gestational Diabetes) Hx Deep Vein Thrombosis: No Hx Liver Disease: (fatty liver) Hx Renal Disease: No Hx Sickle Cell Disease: No Hx Seizures: No Hx Asthma: No Hx COPD: No Hx HIV: No Additional medical history: thyroid, gallstones and kidney stones - Surgical History Additional Surgical History: c section X 2 - Social History Smoking Status: Never Smoker - Medications Home Medications: Home Medications Medication Instructions Recorded Confirmed Last Taken Type glyBURIDE [Glyburide] 2.5 mg PO DAILY 09/29/17 02/27/21 02/26/21 History Acetaminophen 500 mg PO Q6HR PRN #30 capsule 03/01/21 Unknown Rx Ondansetron (Nf) [Zofran TAB] 8 mg PO Q8HR PRN #30 tablet 03/01/21 Unknown Rx Famotidine [Pepcid] 20 mg PO BID #40 tablet 08/04/21 Unknown Rx Ketorolac [Toradol] 10 mg PO Q8H PRN #20 tab 08/04/21 Unknown Rx Ondansetron [Zofran Odt] 4 mg PO Q6HR PRN #20 tab.rapdis 08/04/21 Unknown Rx Sulfamethoxazole/Trimethoprim 1 each PO Q12H #20 tab 08/04/21 Unknown Rx [Bactrim DS TAB] traMADoL [Ultram] 50 mg PO Q6HR PRN #12 tablet 08/04/21 Unknown Rx ED Physical Exam - General Limitations: No Limitations General appearance: alert, in no apparent distress - Head Head exam: Present: atraumatic, normocephalic - Respiratory Respiratory exam: Present: normal lung sounds bilaterally. Absent: respiratory distress - Cardiovascular Cardiovascular Exam: Present: regular rate, normal rhythm, normal heart sounds - GI/Abdominal GI/Abdominal exam: Present: soft, distended (Abdomen mildly distended), tenderness (Significant tenderness in the right upper quadrant). Absent: guarding, rebound - Rectal Rectal exam: Present: deferred - Neurological Exam Neurological exam: Present: alert, oriented X3 - Psychiatric Psychiatric exam: Present: normal affect, normal mood - Skin Skin exam: Present: warm, dry, intact, normal color ED Course Vital Signs 01/08/22 01/09/22 11:19 03:10 Temperature 98.3 F Pulse Rate 101 H 79 Respiratory 14 18 Rate Blood Pressure 132/80 Blood Pressure 157/105 [Left] O2 Sat by Pulse 100 96 Oximetry ED Medical Decision Making - Lab Data Result diagrams: 01/08/22 11:35 01/08/22 11:35 - Medical Decision Making Laboratory findings reveal T bili of 1.5, AST of 285, alk phos of 239, potassium 3.2. Ultrasound findings show biliary sludge with gallbladder wall thickening suggestive of acute cholecystitis. IV Zosyn, Zofran, morphine and potassium ordered. Surgery paged and will consult. Will admit to hospitalist. Critical care attestation.: If time is entered above; I have spent that time in minutes in the direct care of this critically ill patient, excluding procedure time. ED Disposition Clinical Impression: Acute cholecystitis Disposition: ADMITTED INPATIENT Is pt being admited?: Yes Condition: Stable Instructions: Abdominal Pain (ED)
[2022-01-09 03:58] LABS: Mucus,Urine 3+ /HPF
[2022-01-09] MEDS ORDERED: SODIUM CHLORIDE 0.9% 1000 ML 1,000 ML IV SCH (04:00)
[2022-01-09] MEDS ORDERED: MORPHINE 4 MG/1 ML INJ IV PRN (04:00)
[2022-01-09] MEDS ORDERED: MAGNESIUM HYDROXIDE (MOM) ORAL LIQD UDC PO PRN (04:00)
[2022-01-09] MEDS ORDERED: ACETAMINOPHEN 325 MG TAB PO PRN (04:00)
[2022-01-09 04:01] LABS: INR 1.31 (0.87-1.13)
[2022-01-09 04:02] LABS: Partial Thromboplastin Time 42.5 Sec. (24.2-36.6)
[2022-01-09 04:02] LABS: Color,Urine Amber (Yellow)
--- NOTE | 2022-01-09 04:14 | History and Physical Report ---
History of Present Illness Date of examination: 01/09/22 Date of admission: 01/09/2022 Chief complaint: Abdominal pain History of present illness: 31 year old female with significant history of hypertension an fatty liver presents to the Er complaining of abdominal pain. Abdomiinal pain has been intermittent for the past few weeks and gotten worse today. She has had associated nausea and vomiting. Denies any fever or chills,no chest pain ar shortness of breath. Denies any sick contacts and no recent travel. Work up in the ER ,abdominal ultrasound reveals: 1. Prominent sludge with possible stones in the gallbladder with gallbladder wall thickening and positive sonographic Nguyen sign. These findings are concerning for acute cholecystitis. 2. Enlarged, fatty liver. Patient placed IV fluid and empiric IV antibiotics. 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 by the ER MD Past History Past Medical History: other (thyroid, gallstones and kidney stones) Past Surgical History: (X2) Social history: smoking, alcohol abuse Family history: no significant family history Medications and Allergies Allergies Allergy/AdvReac Type Severity Reaction Status Date / Time turkey Allergy Unknown Verified 02/27/21 10:50 Home Medications Medication Instructions Recorded Confirmed Last Taken Type glyBURIDE [Glyburide] 2.5 mg PO DAILY 09/29/17 02/27/21 02/26/21 History Acetaminophen 500 mg PO Q6HR PRN #30 capsule 03/01/21 Unknown Rx Ondansetron (Nf) [Zofran TAB] 8 mg PO Q8HR PRN #30 tablet 03/01/21 Unknown Rx Famotidine [Pepcid] 20 mg PO BID #40 tablet 08/04/21 Unknown Rx Ketorolac [Toradol] 10 mg PO Q8H PRN #20 tab 08/04/21 Unknown Rx Ondansetron [Zofran Odt] 4 mg PO Q6HR PRN #20 tab.rapdis 08/04/21 Unknown Rx Sulfamethoxazole/Trimethoprim 1 each PO Q12H #20 tab 08/04/21 Unknown Rx [Bactrim DS TAB] traMADoL [Ultram] 50 mg PO Q6HR PRN #12 tablet 08/04/21 Unknown Rx Active Meds: Active Medications Acetaminophen (Acetaminophen 325 Mg Tab) 650 mg PO Q4H PRN PRN Reason: Pain MILD(1-3)/Fever >100.5/JORDAN Sodium Chloride (Nacl 0.9% 1000 Ml) 1,000 mls @ 125 mls/hr IV DIRECT RUCHI Magnesium Hydroxide (Magnesium Hydroxide (Mom) Oral Liqd Udc) 30 ml PO Q4H PRN PRN Reason: Constipation Morphine Sulfate (Morphine 2 Mg/1 Ml Inj) 2 mg IV Q4H PRN PRN Reason: Pain, Moderate (4-6) Morphine Sulfate (Morphine 4 Mg/1 Ml Inj) 4 mg IV Q4H PRN PRN Reason: Pain , Severe (7-10) Ondansetron HCl (Ondansetron 4 Mg/2 Ml Inj) 4 mg IV Q8H PRN PRN Reason: Nausea And Vomiting Sodium Chloride (Sodium Chloride 0.9% 10 Ml Flush Syringe) 10 ml IV BID RUCHI Sodium Chloride (Sodium Chloride 0.9% 10 Ml Flush Syringe) 10 ml IV PRN PRN PRN Reason: LINE FLUSH Review of Systems Constitutional: no fever, no chills Ears, nose, mouth and throat: no nasal congestion, no sore throat Cardiovascular: no chest pain, no palpitations Respiratory: no cough, no shortness of breath Gastrointestinal: abdominal pain, nausea, vomiting, no diarrhea, no melena, no hematochezia Genitourinary Female: no flank pain, no dysuria, no hematuria Musculoskeletal: no neck pain, no low back pain Integumentary: no rash, no pruritis Neurological: no headaches, no confusion Psychiatric: no anxiety, no depression Endocrine: no polyphagia, no polydipsia, no polyuria Exam - Constitutional Vitals: Temp Pulse Resp BP Pulse Ox 98.3 F 79 18 157/105 96 01/08/22 11:19 01/09/22 03:10 01/09/22 03:10 01/09/22 03:10 01/09/22 03:10 General appearance: Present: no acute distress, well-nourished - EENT Eyes: Present: PERRL, EOM intact. Absent: scleral icterus ENT: hearing intact, clear oral mucosa, dentition normal - Neck Neck: Present: supple, normal ROM - Respiratory Respiratory effort: normal Respiratory: bilateral: CTA - Cardiovascular Rhythm: regular Heart Sounds: Present: S1 & S2. Absent: gallop, systolic murmur, diastolic murmur, rub, click - Extremities Extremities: no ischemia, pulses intact, No edema, Full ROM Peripheral Pulses: within normal limits - Abdominal General gastrointestinal: Present: soft, tender (Right upper quadrant,No rebound tenderness, minimal guarding), non-distended, normal bowel sounds. Absent: mass - Integumentary Integumentary: Present: clear, warm, dry, normal turgor. Absent: rash - Musculoskeletal Musculoskeletal: strength equal bilaterally - Psychiatric Psychiatric: appropriate mood/affect, intact judgment & insight, memory intact, cooperative - Neurologic Neurologic: CNII-XII intact, no focal deficits, moves all extremities Results - Labs CBC & Chem 7: 01/08/22 11:35 01/08/22 11:35 Labs: Abnormal lab results 01/08/22 01/08/22 01/09/22 Range/Units 11:35 11:35 03:26 RBC 3.23 L (3.65-5.03) M/mm3 MCV 109 H (79-97) fl MCH 36 H (28-32) pg RDW 18.7 H (13.2-15.2) % Seg Neutrophils % 71.3 H (40.0-70.0) % PT 17.8 H (12.2-14.9) Sec. INR 1.31 H (0.87-1.13) APTT 42.5 H (24.2-36.6) Sec. Potassium 3.2 L (3.6-5.0) mmol/L Chloride 97.1 L (98-107) mmol/L Carbon Dioxide 33 H (22-30) mmol/L BUN 3 L (7-17) mg/dL Creatinine 0.3 L (0.6-1.2) mg/dL Magnesium 1.30 L (1.7-2.3) mg/dL Total Bilirubin 1.50 H (0.1-1.2) mg/dL AST 285 H (5-40) units/L Alkaline Phosphatase 239 H (35-129) units/L Lipase 10 L (13-60) units/L Assessment and Plan Assessment: 1.Acute Cholecystitis 2.Fatty Liver 3.Hypertension Plan: 1.Admitted to [facility] [place] and made NPO 2.General sugery consult for evaluation 3.Placed on IV fluid and IV antibiotics DVT prophylaxis: SCD Code Status: Full code
[2022-01-09] MEDS: ONDANSETRON 4 MG/2 ML INJ IV PRN ×2 (08:34→22:15)
[2022-01-09] MEDS: MORPHINE 2 MG/1 ML INJ IV PRN ×2 (08:34→22:15)
[2022-01-09] MEDS ORDERED: PIPERACILLIN/TAZOBACTAM 3.375 3.375 GM/50 ML BAG IV SCH (11:00)
[2022-01-09] MEDS ORDERED: MAGNESIUM SULFATE 3 GM in SODIUM CHLORIDE 0.9% 100 ML IV ONE (11:00)
[2022-01-09] MEDS ORDERED: PIPERACIL/TAZOBACTA 4.5/NS 100 4.5 GM/100 ML VIAL IV SCH (12:00)
[2022-01-09 12:31] LABS: Alanine Aminotransferase 36 units/L (7-56); Albumin 3.2 g/dL (3.9-5); Blood Urea Nitrogen 5 mg/dL (7-17); Calcium 8.1 mg/dL (8.4-10.2); Hemolysis Index 3
[2022-01-09 12:34] LABS: BUN/Creatinine Ratio 17
--- NOTE | 2022-01-09 13:05 | Consultation ---
History of Present Illness Consult date: 01/09/22 Reason for consult: abdominal pain Chief complaint: abd pain - History of present illness History of present illness: 31 yo F with no PMHx who presents to ER with worsening abdominal pain for the last few weeks. Patient states pain is in the epigastric area and radiates to the back and chest. Pain is sharp. It is associated with food. Pain comes and goes but this time it was severe and constant. She also c/o bulge in the epigastrum just above the umbilicus which is tender from time to time. She has b een having n/v and has lost weight due to this. No f/c. No SOB. She was seen in the ER earlier this month for the same symptoms and started on antiemetics and pain control. States this did not help. She has avoided certain foods without relief. W/U in ER revealed acute cholecystitis without bile duct dilatation. Past History Past Medical History: No medical history, other (thyroid, gallstones and kidney stones) Past Surgical History: (X2), Other (tubal igation) Social history: smoking, alcohol abuse Family history: no significant family history Medications and Allergies Allergies Allergy/AdvReac Type Severity Reaction Status Date / Time turkey Allergy Unknown Verified 02/27/21 10:50 Home Medications Medication Instructions Recorded Confirmed Last Taken Type glyBURIDE [Glyburide] 2.5 mg PO DAILY 09/29/17 02/27/21 02/26/21 History Acetaminophen 500 mg PO Q6HR PRN #30 capsule 03/01/21 Unknown Rx Ondansetron (Nf) [Zofran TAB] 8 mg PO Q8HR PRN #30 tablet 03/01/21 Unknown Rx Famotidine [Pepcid] 20 mg PO BID #40 tablet 08/04/21 Unknown Rx Ketorolac [Toradol] 10 mg PO Q8H PRN #20 tab 08/04/21 Unknown Rx Ondansetron [Zofran Odt] 4 mg PO Q6HR PRN #20 tab.rapdis 08/04/21 Unknown Rx Sulfamethoxazole/Trimethoprim 1 each PO Q12H #20 tab 08/04/21 Unknown Rx [Bactrim DS TAB] traMADoL [Ultram] 50 mg PO Q6HR PRN #12 tablet 08/04/21 Unknown Rx Active Meds: Active Medications Acetaminophen (Acetaminophen 325 Mg Tab) 650 mg PO Q4H PRN PRN Reason: Pain MILD(1-3)/Fever >100.5/JORDAN Sodium Chloride (Nacl 0.9% 1000 Ml) 1,000 mls @ 125 mls/hr IV DIRECT RUCHI Piperacillin Sod/Tazobactam Sod (Zosyn/Ns 4.5gm/100ml) 4.5 gm in 100 mls @ 200 mls/hr IV Q8H RUCHI Magnesium Sulfate 3 gm/ Sodium (Chloride) 106 mls @ 35.333 mls/hr IV ONCE ONE Stop: 01/09/22 13:59 Last Admin: 01/09/22 11:43 Dose: 35.333 mls/hr Magnesium Hydroxide (Magnesium Hydroxide (Mom) Oral Liqd Udc) 30 ml PO Q4H PRN PRN Reason: Constipation Morphine Sulfate (Morphine 2 Mg/1 Ml Inj) 2 mg IV Q4H PRN PRN Reason: Pain, Moderate (4-6) Last Admin: 01/09/22 08:34 Dose: 2 mg Morphine Sulfate (Morphine 4 Mg/1 Ml Inj) 4 mg IV Q4H PRN PRN Reason: Pain , Severe (7-10) Ondansetron HCl (Ondansetron 4 Mg/2 Ml Inj) 4 mg IV Q8H PRN PRN Reason: Nausea And Vomiting Last Admin: 01/09/22 08:34 Dose: 4 mg Sodium Chloride (Sodium Chloride 0.9% 10 Ml Flush Syringe) 10 ml IV BID RUCHI Last Admin: 01/09/22 10:22 Dose: 10 ml Sodium Chloride (Sodium Chloride 0.9% 10 Ml Flush Syringe) 10 ml IV PRN PRN PRN Reason: LINE FLUSH Review of Systems All systems: negative (10 pt ros performed and negative except for that listed in HPI) Exam Vital Signs Temp Pulse Resp BP Pulse Ox 98.3 F 101 H 14 132/80 100 01/08/22 11:19 01/08/22 11:19 01/08/22 11:19 01/08/22 11:19 01/08/22 11:19 Narrative exam: Gen: AAOx3. NAD ENT; no scleral icterus or conjunctival pallor CV: S1, S2+ Res: even and unlabored Abd: soft, ND, +RUQ TTP. no r/r/g. Mid epigastric hernia, soft and reducible without skin changes. Ext: no c/c/e Results - Labs 01/08/22 11:35 01/09/22 11:45 Abnormal lab results 01/09/22 01/09/22 Range/Units 03:26 11:45 PT 17.8 H (12.2-14.9) Sec. INR 1.31 H (0.87-1.13) APTT 42.5 H (24.2-36.6) Sec. Potassium 3.3 L (3.6-5.0) mmol/L Carbon Dioxide 36 H (22-30) mmol/L BUN 5 L (7-17) mg/dL Creatinine 0.3 L (0.6-1.2) mg/dL Calcium 8.1 L (8.4-10.2) mg/dL Total Bilirubin 1.80 H (0.1-1.2) mg/dL AST 148 H (5-40) units/L Alkaline Phosphatase 193 H (35-129) units/L Total Protein 5.3 L D (6.3-8.2) g/dL Albumin 3.2 L (3.9-5) g/dL Diabetes panel 01/09/22 Range/Units 11:45 Sodium 144 (137-145) mmol/L Potassium 3.3 L (3.6-5.0) mmol/L Chloride 102.2 (98-107) mmol/L Carbon Dioxide 36 H (22-30) mmol/L BUN 5 L (7-17) mg/dL Creatinine 0.3 L (0.6-1.2) mg/dL Glucose 76 (65-100) mg/dL Calcium 8.1 L (8.4-10.2) mg/dL AST 148 H (5-40) units/L ALT 36 (7-56) units/L Alkaline Phosphatase 193 H (35-129) units/L Total Protein 5.3 L D (6.3-8.2) g/dL Albumin 3.2 L (3.9-5) g/dL Calcium panel 01/09/22 Range/Units 11:45 Calcium 8.1 L (8.4-10.2) mg/dL Albumin 3.2 L (3.9-5) g/dL Pituitary panel 01/09/22 Range/Units 11:45 Sodium 144 (137-145) mmol/L Potassium 3.3 L (3.6-5.0) mmol/L Chloride 102.2 (98-107) mmol/L Carbon Dioxide 36 H (22-30) mmol/L BUN 5 L (7-17) mg/dL Creatinine 0.3 L (0.6-1.2) mg/dL Glucose 76 (65-100) mg/dL Calcium 8.1 L (8.4-10.2) mg/dL Adrenal panel 01/09/22 Range/Units 11:45 Sodium 144 (137-145) mmol/L Potassium 3.3 L (3.6-5.0) mmol/L Chloride 102.2 (98-107) mmol/L Carbon Dioxide 36 H (22-30) mmol/L BUN 5 L (7-17) mg/dL Creatinine 0.3 L (0.6-1.2) mg/dL Glucose 76 (65-100) mg/dL Calcium 8.1 L (8.4-10.2) mg/dL Total Bilirubin 1.80 H (0.1-1.2) mg/dL AST 148 H (5-40) units/L ALT 36 (7-56) units/L Alkaline Phosphatase 193 H (35-129) units/L Total Protein 5.3 L D (6.3-8.2) g/dL Albumin 3.2 L (3.9-5) g/dL - Imaging US - abdomen: report reviewed, image reviewed Assessment and Plan 31 yo F with 1. acute cholecystitis Plan: 1. NPO 2. IVF 3. IV abx 4. DVT ppx 5. prn pain and nausea control 6. LFTS pending 7. Discussed management of cholecystitis with patient. Recommend cholecystectomy. Discussed risks, benefits, alternatives to surgery with patient and questions answered. Consent obtained. Will perform primary repair of mid- epigastric hernia primarily - pt agreeable. Added to OR schedule for today. Thank you for this consultation, please call with questions
--- NOTE | 2022-01-09 14:09 | Anesthesia Consultation ---
Anesthesia Consult and Med Hx Date of service: 01/09/22 - Airway Anesthetic Teeth Evaluation: Good (braces upper and lower) ROM Head & Neck: Adequate Mental/Hyoid Distance: Adequate Mallampati Class: Class II Intubation Access Assessment: Probably Good - Pre-Operative Health Status ASA Pre-Surgery Classification: ASA2 Proposed Anesthetic Plan: General - Pulmonary Hx Smoking: Yes (smoker 1/2 pack/day x 3 years) Hx Asthma: No COPD: No Hx Pneumonia: No - Cardiovascular System Hx Hypertension: Yes - Central Nervous System Hx Seizures: No Hx Psychiatric Problems: No - Gastrointestinal Hx Gastroesophageal Reflux Disease: Yes - Endocrine Hx Renal Disease: No Hx End Stage Renal Disease: No Hx Liver Disease: Yes (fatty liver) Hx Non-Insulin Dependent Diabetes: Yes (h/o gestational diabetes) Hx Hypothyroidism: Yes Hx Hyperthyroidism: No - Hematic Hx Anemia: Yes Hx Sickle Cell Disease: No - Other Systems Hx Alcohol Use: No Hx Cancer: No Hx Obesity: No (BMI 20.2)
--- NOTE | 2022-01-09 14:15 | Anesthesia Day of Surgery ---
Anesthesia Day of Surgery - Day of Surgery Patient Examined: Yes Patient H&P Reviewed: Yes Patient is NPO: Yes
--- NOTE | 2022-01-09 15:59 | Event Note ---
Date: 01/09/22 31-year-old female admitted for acute cholecystitis, general surgery following pending laparoscopic cholecystectomy Continue to follow with supportive care
[2022-01-09] MEDS ORDERED: LIDOCAINE (2%) 20 MG/1 ML VIAL 20 ML MDV INFILTRATI ONE ×2 (17:07→18:39)
[2022-01-09] MEDS ORDERED: propofoL 200 MG/20 ML VIAL IV ONE (17:07)
[2022-01-09] MEDS ORDERED: LIDOCAINE MPF (2%) 20 MG/1 ML VIAL 5 ML ONE (17:07)
[2022-01-09] MEDS ORDERED: SODIUM CHLORIDE 0.9% 100 ML ONE (17:08)
[2022-01-09] MEDS ORDERED: BUPIVACAINE-EPINEPHRINE/PF 0.5%-1:200,000 (30 ML) VIAL INFILTRATI ONE (17:08)
[2022-01-09] MEDS ORDERED: MIDAZOLAM 2 MG/2 ML INJ ONE (17:11)
[2022-01-09] MEDS ORDERED: fentaNYL 100 MCG/2 ML INJ ONE (17:11)
[2022-01-09] MEDS ORDERED: KETAMINE/STERILE WATER 50 MG/ML SYRINGE ONE (17:12)
[2022-01-09] MEDS ORDERED: ONDANSETRON 4 MG/2 ML INJ IV NR (17:37)
[2022-01-09] MEDS ORDERED: HYDROmorphone 0.5 MG/0.5 ML INJ IV PRN (18:00)
[2022-01-09] MEDS ORDERED: SUGAMMADEX SODIUM 200 MG/2 ML VIAL IV ONE (18:28)
[2022-01-09] MEDS ORDERED: ePHEDrine SULFATE 50 MG/1 ML INJ ONE (18:33)
[2022-01-09] MEDS ORDERED: .SODIUM CHLORIDE 0.9% IRRIG SOLN 3000 ML IR ONE (18:38)
[2022-01-09] MEDS ORDERED: BUPIVACAINE/PF (0.5%) 5 MG/1 ML 30 ML VIAL INFILTRATI ONE (18:38)
[2022-01-09] MEDS ORDERED: LACTATED RINGERS 2,000 ML ONE (18:45)
--- NOTE | 2022-01-09 18:49 | Fluoroscopy Report ---
Intraoperative cholangiogram Indication: Intraoperative biliary evaluation. Findings: Normal filling of the CBD with contrast spill into the duodenum. No obstructive stone dis ease. Impression: Unremarkable exam. Fluoroscopic time: 28 seconds Number of images: 2 Signer Name: Gilmar Hendricks MD Signed: 01/09/2022 6:44 PM Workstation Name: [id number]
[2022-01-09] MEDS ORDERED: HYDROmorphone 0.5 MG/0.5 ML INJ ONE (18:50)
--- NOTE | 2022-01-09 19:00 | Post Operative Note ---
Pre-op diagnosis: acute cholecystitis, ventral hernia Post-op diagnosis: same Findings: 1. Thickened gallbladder wall 2. Negative cholangiogram 3. 1 cm midline epigastric hernia containing preperitoneal fat Procedure: laparoscopic cholecystectomy with IOC, primary repair of midline epigastric hernia Anesthesia: FRANCISCOA, local Surgeon: SHALINI HAYDEN Archivist Political History: SADAF PIÑA Estimated blood loss: minimal Pathology: list (gallbladder) Specimen disposition: to lab Condition: stable Disposition: PACU
[2022-01-09] MEDS ORDERED: HYDROcodone/ACETAMINOPHEN 5-325 MG TAB PO PRN (19:30)
[2022-01-10] MEDS: MORPHINE 2 MG/1 ML INJ IV PRN ×2 (04:24→11:25)
[2022-01-10 06:10] LABS: Basophils % (Auto) 0.1 % (0.0-1.8); Hematocrit 30.9 % (30.3-42.9); Hemoglobin 10.3 gm/dl (10.1-14.3); Lymphocytes # (Auto) 0.9 K/mm3 (1.2-5.4); Mean Corpuscular HGB Conc 33 % (30-34); Mean Corpuscular Volume 109 fl (79-97); Monocytes # (Auto) 0.3 K/mm3 (0.0-0.8); Monocytes % (Auto) 3.3 % (0.0-7.3); Platelet Count 226 K/mm3 (140-440); Red Blood Count 2.83 M/mm3 (3.65-5.03); Red Cell Distribution Width 18.6 % (13.2-15.2)
[2022-01-10 06:26] LABS: Blood Urea Nitrogen 4 mg/dL (7-17); Calcium 8.3 mg/dL (8.4-10.2); Hemolysis Index 1
[2022-01-10 06:30] LABS: BUN/Creatinine Ratio 13
--- NOTE | 2022-01-10 10:25 | Discharge Summary ---
Providers - Providers Date of Admission: 01/09/22 04:02 Date of discharge: 01/17/22 Attending physician: MICHELLE QUINTERO 01/09/22 04:00 Consult to Physician [CONS] Routine Comment: Consulting Provider: SHALINI HAYDEN Physician Instructions: Reason For Exam: Acute Cholecystitis Primary care physician: MOUSTAPHA CORONEL Hospitalization Condition: Stable Hospital course: 31 year old female with significant history of hypertension an fatty liver presents to the Er complaining of abdominal pain. Abdomiinal pain has been intermittent for the past few weeks and gotten worse today. She has had associated nausea and vomiting. Denies any fever or chills,no chest pain ar shortness of breath. Denies any sick contacts and no recent travel. Work up in the ER ,abdominal ultrasound reveals: 1. Prominent sludge with possible stones in the gallbladder with gallbladder wall thickening and positive sonographic Nguyen sign. These findings are concerning for acute cholecystitis. 2. Enlarged, fatty liver. Patient placed IV fluid and empiric IV antibiotics. General surgeon client professional has been consulted by the ER MD laparoscopic cholecystectomy with IOC, primary repair of midline epigastric hernia. Findings: 1. Thickened gallbladder wall 2. Negative cholangiogram 3. 1 cm midline epigastric hernia containing preperitoneal fat Procedure: Disposition: 30 STILL A PATIENT Final Discharge Diagnosis (Prints w/discharge instructions): -- Acute appendicitis. -- Hypokalemia. -- Hypomagnesemia. -- Elevated LFT due to alcohol abuse Time spent for discharge: 34 minutes Exam - Constitutional Vitals: Temp Pulse Resp BP Pulse Ox 97.2 F L 78 14 131/90 100 01/09/22 20:00 01/09/22 20:15 01/09/22 20:15 01/09/22 20:15 01/09/22 22:00 Plan Activity: advance as tolerated Diet: low fat, low salt Follow up with: MOUSTAPHA CORONEL MD [Primary Care Provider] - 3-5 Days SHALINI AHYDEN DO [Staff Physician] - 14 Days
[2022-01-10 11:39] LABS: Albumin 3.1 g/dL (3.9-5); Bilirubin,Direct 1.3 mg/dL (0-0.2)
[2022-01-10] MEDS: ONDANSETRON 4 MG/2 ML INJ IV PRN (11:57)
--- NOTE | 2022-01-10 12:19 | Operative Report ---
Operative Report Operative Report: Date: 01/09/22 Pre-op diagnosis: acute cholecystitis, ventral hernia Post-op diagnosis: same Findings: 1. Thickened gallbladder wall 2. Negative cholangiogram 3. 1 cm midline epigastric hernia containing preperitoneal fat Procedure: laparoscopic cholecystectomy with IOC, primary repair of midline epigastric hernia Anesthesia: MICHELLE local Surgeon: SHALINI HAYDEN Roughing Mill Operator: SADAF PIÑA Estimated blood loss: minimal Pathology: list (gallbladder) Specimen disposition: to lab Condition: stable Disposition: PACU HPI an indication: 31-year-old female who presented to the ER with complaints of constant sharp right upper quadrant abdominal pain, n/v. Patient states that the pain is been ongoing for several weeks intermittently. The pain was associated with foods and often led to nausea and vomiting. An ultrasound was performed which showed a acute calculus cholecystitis. It was recommended that the patient undergo cholecystectomy. The patient also complained of a bulge with pain in the midline epigastric area. She was found to have a reducible ventral hernia in this area. It was recommended that this be repaired primarily during cholecystectomy. All risks, benefits, alternatives to surgery were discussed in detail and questions answered. Consent was obtained for laparoscopic, possible open cholecystectomy, possible cholangiogram, primary ventral hernia repair. Procedure in detail: The patient was identified in the preoperative area and taken back to the operating room, placed on the operating room table in supine position. After anesthesia was induced, the abdomen was prepped and draped in usual sterile fashion and timeout was performed. Local anesthetic was infiltrated into all of the skin incision sites. A supraumbilical incision was made through which a Veress needle was inserted. The Veress needle positioning was confirmed using saline drop test and the abdomen insufflated to 15 mmHg without incident. The veress needle was removed and a 5 mm Optiview trocar was placed through this incision. The abdomen was inspected and there was no underlying injury to any of the abdominal structures. A mid epigastric midline ventral hernia was identified containing preperitoneal fat. An additional 12 mm subxyphoid port, 5 mm RUQ and 5 mm right lateral abdominal ports were placed under direct visualization. The patient was then placed into reverse Trendelberg and tilted to the left. The liver was examined and there was hepatomegaly. The gallbladder was mildly distended with a thickened wall. The fundus was retracted cephalad and above the liver. The cystic duct and artery were carefully skeletonized. The medial and lateral peritoneal attachments to the gallbladder were dissected using a combination of blunt dissection with the [place] and hook electrocautery. The cystic duct and artery were the only 2 structures seen entering the gallbladder and the critical view was successfully obtained. 2 clips were placed on the proximal aspect of the cystic artery and 1 distally this was transected in between the clips using EndoShears. One clip was placed on the distal aspect of the cystic duct. A ductotomy was created just proximal to this with endoshears. A cholangiogram was then performed by inserting an arrow catheter into the cystic duct and injecting 50/50 mixture of injectable saline and omnipaque dye. There was prompt filling of the cystic duct, common bile duct, intrahepatic bile ducts, and duodenum. The common bile duct tapers normally without any filling defects. The cholangiogram catheter was then removed and the remainder of the procedure performed. 3 clips were placed on the proximal aspect of the cystic duct and this was completely transected using EndoShears. The gallbladder was dissected from the liver bed using electrocautery. The gallbladder was placed into a Endo Catch bag and removed from the abdomen via the 12mm port. The gallbladder fossa was then inspected and hemostasis was ensured using electrocautery. There was no identifiable bleeding or bile leakage. Hemostasis was ensured. The clips on the cystic duct and artery were visualized and intact. The patient was then placed into neutral position. Morison's pouch was irrigated until all irrigant returned clear. At this point I turned my attention to the hernia. The falciform ligament was dissected using hook electrocautery. The preperitoneal fat was dissected from the hernia along with a hernia sac which was reduced. The hernia defect measured approximately 1 cm. This was closed using an interrupted 0 Vicryl stitch using the Kimani Lomas device. The 12 mm port fascia was closed with interrupted 0 Vicryl suture using the Kimani Lomas device. The remaining ports were removed under direct visualization. Skin incisions were closed with 4-0 Monocryl subcuticular stitches and skin glue. All skin incisions were once again infiltrated with local anesthetic. At the end case all sponge, instrument, sharp counts were correct 2. The patient was awoken from anesthesia, extubated, and taken to PACU in stable condition.
[2022-01-10 13:59] VITALS: BP 114/86
--- NOTE | 2022-01-11 22:19 | Electrocardiograph Report ---
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
== END 2022-01-10 16:02 | disposition home or self-care (01) | DRG 419 ==
LOC: ED 10:28 → 3A 01-09 04:02
PROVIDERS: ADMIT Internal Medicine Geriatric Medicine; ATTEND Internal Medicine
PROC: 0FT44ZZ Resection of Gallbladder, Percutaneous Endoscopic Approach (ICD-10-PCS; principal; 2022-01-09)
PROC: BF131ZZ Fluoroscopy of Gallbladder and Bile Ducts using Low Osmolar Contrast (ICD-10-PCS; 2022-01-09)
PROC: 0WQF4ZZ Repair Abdominal Wall, Percutaneous Endoscopic Approach (ICD-10-PCS; 2022-01-09)
DX: K81.0 Acute cholecystitis (principal); K76.0 Fatty (change of) liver, not elsewhere classified; I10 Essential (primary) hypertension; F17.200 Nicotine dependence, unspecified, uncomplicated; Z98.51 Tubal ligation status; K21.9 Gastro-esophageal reflux disease without esophagitis; K43.9 Ventral hernia without obstruction or gangrene; E87.6 Hypokalemia; E83.42 Hypomagnesemia; F10.10 Alcohol abuse, uncomplicated; Y90.9 Presence of alcohol in blood, level not specified; Z91.018 Allergy to other foods
CPT/HCPCS: 36415; 74300; 76705; 80048; 80053; 80076; 81001; 83690; 83735; 84703; 85025; 85610; 85730; 86850; 86900; 86901; 88304; 93005; 99285; G0378; J3490; J1170; J2250; J2270; J2405; J2543; J2704; J3010; J3475; J7030; J7120

== ENCOUNTER 2022-01-17 12:43 | Outpatient (CLI) | payer MEDICAID ==
--- NOTE | 2022-01-17 18:40 | Cat Scan Report ---
CT ABDOMEN AND PELVIS WITH CONTRAST INDICATION: UNSPECIFIED ABDOMINAL PAIN CONTRAST: Oral, 65 cc Omnipaque 350 IV COMPARISON: 08/04/[address] scans at this location are performed using CT dose reduction for ALARA by means of automated e xposure control. FINDINGS: Lung bases show atelectatic changes without clear evidence of pneumonitis. No pleural effus ions. No pneumoperitoneum. Gallbladder removed. No biliary dilatation. No abnormalities seen of pancreas, s pleen, or adrenals. Liver is enlarged and has a length of 19.7 cm. In the upper portion of the right lobe of the dome of the diaphragm ill-defined hypodensity is seen measuring approximately 7.2 cm in d iameter. On previous study there was significant fatty infiltration of the liver and no mass lesion w as obvious. A few other much smaller vague hypodensities are also seen in the upper portion of the ri ght lobe. There is now moderate ascites seen diffusely in the abdomen and pelvis. Diffuse subcutaneous edema is seen. Edema is seen throughout the mesentery. Increased markings in the omentum and periphery of the peritoneal cavity are not clearly nodular and may just represent edema though mild nodularity is not excluded. Fatty midline abdominal wall hernias are seen without bowel. No evidence of bowel obstruction. No focal bowel lesions are obvious. Tiny probable right renal cyst is seen posteriorly. No urinary obstructive changes. No obvious lymphadenopathy. No discrete pelvic m asses. Small physiologic type left ovarian cysts noted. IMPRESSION: 1. Development of moderate ascites and evidence of anasarca 2. The fatty infiltration of the liver seen previously has improved but there is hepatomegaly and ill -defined patchy hypodensity is seen in the superior aspect of the right lobe of the liver. I cannot e xclude significant mass lesion though possibly this is just residual more focal fatty infiltration. T here is a suggestion of abnormal vascularity extending through this region which would further sugges t fatty infiltration and is the source of this hypodensity. Ultrasound may be useful. COMMUNICATION: Time of Communication (CHECK AND TRANSFER BEADER/CDT): 9999 Licensed Practitioner Receiving Report: Dr. Crys Goode answering service left message and phone num [phone] for callback and discussion Signer Name: Eliel Carbone MD Signed: 01/17/2022 6:36 PM Workstation Name: [employer] Media and CommunicationsINLAND [facility] [place][note 3]
== END 2022-01-17 12:44 | disposition home or self-care (01) ==
LOC: CT 12:43
PROVIDERS: ATTEND Surgery
DX: K76.0 Fatty (change of) liver, not elsewhere classified (principal); R18.8 Other ascites; N83.202 Unspecified ovarian cyst, left side; R10.9 Unspecified abdominal pain
CPT/HCPCS: 74177; Q9967

== ENCOUNTER 2022-01-17 16:05 | Inpatient (IN) | payer MEDICAID ==
[2022-01-17] MEDS ORDERED: ACETAMINOPHEN 325 MG TAB PO PRN ×2 (17:06→20:41)
[2022-01-17] MEDS ORDERED: MORPHINE 2 MG/1 ML INJ IV PRN (17:06)
[2022-01-17] MEDS ORDERED: ONDANSETRON 4 MG/2 ML INJ IV PRN (17:06)
[2022-01-17 21:32] LABS: Basophils % (Auto) 0.6 % (0.0-1.8); Eosinophils # (Auto) 0.1 K/mm3 (0.0-0.4); Eosinophils % (Auto) 2.2 % (0.0-4.3); Hematocrit 34.8 % (30.3-42.9); Hemoglobin 11.4 gm/dl (10.1-14.3); Lymphocytes # (Auto) 1.5 K/mm3 (1.2-5.4); Lymphocytes % (Auto) 24.7 % (13.4-35.0); Mean Corpuscular HGB Conc 33 % (30-34); Mean Corpuscular Volume 108 fl (79-97); Monocytes # (Auto) 0.7 K/mm3 (0.0-0.8); Monocytes % (Auto) 10.6 % (0.0-7.3); Platelet Count 303 K/mm3 (140-440); Red Blood Count 3.23 M/mm3 (3.65-5.03); Red Cell Distribution Width 18.5 % (13.2-15.2)
[2022-01-17 21:42] LABS: INR 1.29 (0.87-1.13)
[2022-01-17 21:48] LABS: Alanine Aminotransferase 20 units/L (7-56); Albumin 2.9 g/dL (3.9-5); Blood Urea Nitrogen 4 mg/dL (7-17); Calcium 8.2 mg/dL (8.4-10.2); Hemolysis Index 2
[2022-01-17 21:49] LABS: BUN/Creatinine Ratio 10
[2022-01-17] MEDS: FAMOTIDINE 20 MG TAB PO SCH (21:54)
[2022-01-17] MEDS: HYDROmorphone 0.5 MG/0.5 ML INJ IV PRN (23:04)
--- NOTE | 2022-01-18 07:54 | History and Physical Report ---
History of Present Illness Date of examination: 01/17/22 Date of admission: 01/17/22 17:32 Chief complaint: Abdominal distention's since January 12 History of present illness: 31-year-old female with no significant past medical history comes in for abdominal distention of 1 week. Patient had a cholecystectomy on January 09. Postop patient has been having abdominal distention for which patient is being admitted for surgical evaluation and paracentesis. Slight abdominal pain present. No nausea or vomiting. No exacerbating or relieving factors. Past History Past Medical History: No medical history, diabetes, GERD Past Surgical History: cholecystectomy Social history: lives with family, full code Family history: no significant family history Medications and Allergies Allergies Allergy/AdvReac Type Severity Reaction Status Date / Time turkey Allergy Unknown Verified 02/27/21 10:50 Home Medications Medication Instructions Recorded Confirmed Last Taken Type glyBURIDE [Glyburide] 2.5 mg PO DAILY 09/29/17 01/10/22 02/26/21 History Famotidine [Pepcid] 20 mg PO BID #40 tablet 08/04/21 01/10/22 Unknown Rx Docusate Sodium [Colace] 100 mg PO BID PRN #20 capsule 01/10/22 Unknown Rx HYDROcodone/APAP 5-325 [[place] 1 each PO Q4H PRN #14 tablet 01/10/22 Unknown Rx 5-325 mg TAB] Ondansetron [Zofran ODT TAB] 4 mg PO Q6HR PRN #20 tab.rapdis 01/10/22 Unknown Rx Active Meds: Active Medications Acetaminophen (Acetaminophen 325 Mg Tab) 650 mg PO Q4H PRN PRN Reason: Pain MILD(1-3)/Fever >100.5/JORDAN Famotidine (Famotidine 20 Mg Tab) 20 mg PO BID RUCHI Last Admin: 01/17/22 21:54 Dose: 20 mg Hydromorphone HCl (Hydromorphone 0.5 Mg/0.5 Ml Inj) 0.5 mg IV Q3H PRN PRN Reason: Pain , Severe (7-10) Last Admin: 01/17/22 23:04 Dose: 0.5 mg Morphine Sulfate (Morphine 2 Mg/1 Ml Inj) 2 mg IV Q4H PRN PRN Reason: Pain, Moderate (4-6) Last Admin: 01/17/22 19:58 Dose: 2 mg Ondansetron HCl (Ondansetron 4 Mg/2 Ml Inj) 4 mg IV Q8H PRN PRN Reason: Nausea And Vomiting Sodium Chloride (Sodium Chloride 0.9% 10 Ml Flush Syringe) 10 ml IV BID RUCHI Last Admin: 01/17/22 21:54 Dose: 10 ml Sodium Chloride (Sodium Chloride 0.9% 10 Ml Flush Syringe) 10 ml IV PRN PRN PRN Reason: LINE FLUSH Review of Systems All systems: negative Gastrointestinal: abdominal pain, other (Abdominal distention for 1 week) Exam - Constitutional Vitals: Temp Pulse Resp BP Pulse Ox 98.7 F 77 18 113/79 98 01/18/22 05:27 01/18/22 05:27 01/18/22 05:27 01/18/22 05:27 01/18/22 05:27 General appearance: Present: no acute distress, well-nourished - EENT Eyes: Present: PERRL ENT: hearing intact, clear oral mucosa - Neck Neck: Present: supple, normal ROM - Respiratory Respiratory effort: normal Respiratory: bilateral: CTA - Cardiovascular Heart rate: 78 Rhythm: regular Heart Sounds: Present: S1 & S2. Absent: rub, click - Extremities Extremities: pulses symmetrical, No edema Peripheral Pulses: within normal limits - Abdominal General gastrointestinal: Present: soft, tender, distended, normal bowel sounds Female genitourinary: Present: normal - Rectal Rectal Exam: deferred - Integumentary Integumentary: Present: clear, warm, dry - Musculoskeletal Musculoskeletal: gait normal, strength equal bilaterally - Psychiatric Psychiatric: appropriate mood/affect, intact judgment & insight - Neurologic Neurologic: CNII-XII intact, moves all extremities - Allied Health Allied health notes reviewed: nursing, case management Results - Labs CBC & Chem 7: 01/17/22 21:16 01/17/22 21:16 Labs: Laboratory Last Values WBC 6.2 K/mm3 (4.5-11.0) 01/17/22 21:16 RBC 3.23 M/mm3 (3.65-5.03) L 01/17/22 21:16 Hgb 11.4 gm/dl (10.1-14.3) 01/17/22 21:16 Hct 34.8 % (30.3-42.9) 01/17/22 21:16 MCV 108 fl (79-97) H 01/17/22 21:16 MCH 35 pg (28-32) H 01/17/22 21:16 MCHC 33 % (30-34) 01/17/22 21:16 RDW 18.5 % (13.2-15.2) H 01/17/22 21:16 Plt Count 303 K/mm3 (140-440) 01/17/22 21:16 Lymph % (Auto) 24.7 % (13.4-35.0) 01/17/22 21:16 [place] % (Auto) 10.6 % (0.0-7.3) H 01/17/22 21:16 Eos % (Auto) 2.2 % (0.0-4.3) 01/17/22 21:16 Baso % (Auto) 0.6 % (0.0-1.8) 01/17/22 21:16 Lymph # (Auto) 1.5 K/mm3 (1.2-5.4) 01/17/22 21:16 [place] # (Auto) 0.7 K/mm3 (0.0-0.8) 01/17/22 21:16 Eos # (Auto) 0.1 K/mm3 (0.0-0.4) 01/17/22 21:16 Baso # (Auto) 0.0 K/mm3 (0.0-0.1) 01/17/22 21:16 Seg Neutrophils % 61.9 % (40.0-70.0) 01/17/22 21:16 Seg Neutrophils # 3.8 K/mm3 (1.8-7.7) 01/17/22 21:16 PT 17.6 Sec. (12.2-14.9) H 01/17/22 21:16 INR 1.29 (0.87-1.13) H 01/17/22 21:16 Sodium 141 mmol/L (137-145) 01/17/22 21:16 Potassium 3.1 mmol/L (3.6-5.0) L 01/17/22 21:16 Chloride 102.8 mmol/L (98-107) 01/17/22 21:16 Carbon Dioxide 27 mmol/L (22-30) 01/17/22 21:16 Anion Gap 14 mmol/L 01/17/22 21:16 BUN 4 mg/dL (7-17) L 01/17/22 21:16 Creatinine 0.4 mg/dL (0.6-1.2) L 01/17/22 21:16 Estimated GFR > 60 ml/min 01/17/22 21:16 BUN/Creatinine Ratio 10 % 01/17/22 21:16 Glucose 103 mg/dL (65-100) H 01/17/22 21:16 Calcium 8.2 mg/dL (8.4-10.2) L 01/17/22 21:16 Total Bilirubin 0.70 mg/dL (0.1-1.2) 01/17/22 21:16 AST 81 units/L (5-40) H 01/17/22 21:16 ALT 20 units/L (7-56) 01/17/22 21:16 Alkaline Phosphatase 135 units/L (35-129) H 01/17/22 21:16 Total Protein 5.0 g/dL (6.3-8.2) L 01/17/22 21:16 Albumin 2.9 g/dL (3.9-5) L 01/17/22 21:16 Albumin/Globulin Ratio 1.4 % 01/17/22 21:16 Short CBC 01/17/22 Range/Units 21:16 WBC 6.2 (4.5-11.0) K/mm3 Hgb 11.4 (10.1-14.3) gm/dl Hct 34.8 (30.3-42.9) % Plt Count 303 (140-440) K/mm3 BMP 01/17/22 21:16 Sodium 141 Potassium 3.1 L Chloride 102.8 Carbon Dioxide 27 BUN 4 L Creatinine 0.4 L Glucose 103 H Calcium 8.2 L Liver Function 01/17/22 Range/Units 21:16 Total Bilirubin 0.70 (0.1-1.2) mg/dL AST 81 H (5-40) units/L ALT 20 (7-56) units/L Alkaline Phosphatase 135 H (35-129) units/L Albumin 2.9 L (3.9-5) g/dL Harrell/IV: Voiding Method Toilet Assessment and Plan Advance Directives: Yes (Full code) VTE prophylaxis?: Chemical Plan of care discussed with patient/family: Yes - Patient Problems (1) Ascites Current Visit: Yes Status: Acute Qualifiers: Ascites type: other type Qualified Code(s): R18.8 - Other ascites Plan to address problem: Ascites after cholecystectomy Therapeutic and diagnostic paracentesis in a.m. Surgery consulted (2) Hypokalemia Current Visit: Yes Status: Acute Plan to address problem: Supplemented (3) Malnutrition Current Visit: Yes Status: Chronic Qualifiers: Protein-calorie malnutrition severity: moderate Plan to address problem: Dietary supplements after the procedure (4) Advance care planning Current Visit: Yes Status: Acute Plan to address problem: Disease education conducted, care plan discussed, diagnosis discussed and prognosis discussed. Patient acknowledged understanding of the care plan. Care plan +30 minutes. (5) DVT prophylaxis Current Visit: Yes Status: Acute Plan to address problem: On heparin and GI prophylaxis
[2022-01-18] MEDS: HYDROmorphone 0.5 MG/0.5 ML INJ IV PRN (08:11)
[2022-01-18] MEDS: ONDANSETRON 4 MG/2 ML INJ IV PRN (08:11)
[2022-01-18] MEDS ORDERED: LIDOCAINE (1%) 10 MG/1 ML VIAL 20 ML MDV ONE (08:33)
--- NOTE | 2022-01-18 08:41 | Progress Note ---
Assessment and Plan Assessment and plan: 31-year-old female with no significant past medical history comes in for abdominal distention of 1 week. Patient had a cholecystectomy on January 09. Postop patient has been having abdominal distention for which patient is being admitted for surgical evaluation and paracentesis. Slight abdominal pain p resent. No nausea or vomiting. No exacerbating or relieving factors. --S/p cholecystectomy on 01/09/2022 - Ascites Ascites after cholecystectomy s/pTherapeutic and diagnostic paracentesis today Advance the diet to regular as tolerated -- Hypokalemia Supplemented. Follow electrolytes -- Severe protein calorie malnutrition Dietary supplements after the procedure --hypoalbuminemia; albumin 2.9 Nutrition supplements/nutrition consult/supportive care --Advance care planning Disease education conducted, care plan discussed, diagnosis discussed prognosis discussed. Patient acknowledged understanding of the care plan. Care plan +30 minutes. -- DVT prophylaxis On heparin and GI prophylaxis Follow surgery evaluation recommendation We will closely monitor the patient and adjust management as needed We will closely monitor the patient and adjust management as needed Follow surgery and GI evaluation and recommendation. DC planning per case management; possible discharge in 1 to 2 days if stable Advance care planning; Patient's condition discussed in detail with the patient, tests and reports discussed with the patient Diagnosis discussed with the patient, abdominal paracentesis significance, and fluid analysis discussed with the patient Consultants evaluation and recommendations I discussed with the patient's, treatment plan and ultimately the discharge plan was also discussed in detail with the patient, I answered all patient's questions, she verbalized understanding and agreed with the plan History Interval history: I have seen and examined the patient at the bedside Patient's chart and medications reviewed 31-year-old female patient underwent lap cholecystectomy on 01/09/2022 presented to the hospital yesterday with abdominal distention and abdominal pain and ascites.Patient was admitted with abdominal pain and distention Underwent ultrasound-guided paracentesis and removed 1 and half liters of peritoneal fluid ,fluid sent for analysis Patient complains of mild abdominal pain Vital signs noted Hospitalist Physical - Constitutional Vitals: Temp Pulse Resp BP Pulse Ox 98.7 F 77 18 113/79 98 01/18/22 05:27 01/18/22 05:27 01/18/22 05:27 01/18/22 05:27 01/18/22 05:27 General appearance: Present: no acute distress, well-nourished - EENT Eyes: Present: PERRL, EOM intact - Neck Neck: Present: supple, normal ROM - Respiratory Respiratory effort: normal Respiratory: bilateral: diminished, negative: rales, rhonchi, wheezing - Cardiovascular Rhythm: regular Heart Sounds: Present: S1 & S2 - Extremities Extremities: no ischemia, No edema - Abdominal General gastrointestinal: soft, non-tender, distended, normal bowel sounds - Integumentary Integumentary: Present: clear, warm - Psychiatric Psychiatric: appropriate mood/affect, cooperative - Neurologic Neurologic: moves all extremities Results - Labs CBC & Chem 7: 01/17/22 21:16 01/17/22 21:16 Labs: Laboratory Last Values WBC 6.2 K/mm3 (4.5-11.0) 01/17/22 21:16 RBC 3.23 M/mm3 (3.65-5.03) L 01/17/22 21:16 Hgb 11.4 gm/dl (10.1-14.3) 01/17/22 21:16 Hct 34.8 % (30.3-42.9) 01/17/22 21:16 MCV 108 fl (79-97) H 01/17/22 21:16 MCH 35 pg (28-32) H 01/17/22 21:16 MCHC 33 % (30-34) 01/17/22 21:16 RDW 18.5 % (13.2-15.2) H 01/17/22 21:16 Plt Count 303 K/mm3 (140-440) 01/17/22 21:16 Lymph % (Auto) 24.7 % (13.4-35.0) 01/17/22 21:16 [place] % (Auto) 10.6 % (0.0-7.3) H 01/17/22 21:16 Eos % (Auto) 2.2 % (0.0-4.3) 01/17/22 21:16 Baso % (Auto) 0.6 % (0.0-1.8) 01/17/22 21:16 Lymph # (Auto) 1.5 K/mm3 (1.2-5.4) 01/17/22 21:16 [place] # (Auto) 0.7 K/mm3 (0.0-0.8) 01/17/22 21:16 Eos # (Auto) 0.1 K/mm3 (0.0-0.4) 01/17/22 21:16 Baso # (Auto) 0.0 K/mm3 (0.0-0.1) 01/17/22 21:16 Seg Neutrophils % 61.9 % (40.0-70.0) 01/17/22 21:16 Seg Neutrophils # 3.8 K/mm3 (1.8-7.7) 01/17/22 21:16 PT 17.6 Sec. (12.2-14.9) H 01/17/22 21:16 INR 1.29 (0.87-1.13) H 01/17/22 21:16 Sodium 141 mmol/L (137-145) 01/17/22 21:16 Potassium 3.1 mmol/L (3.6-5.0) L 01/17/22 21:16 Chloride 102.8 mmol/L (98-107) 01/17/22 21:16 Carbon Dioxide 27 mmol/L (22-30) 01/17/22 21:16 Anion Gap 14 mmol/L 01/17/22 21:16 BUN 4 mg/dL (7-17) L 01/17/22 21:16 Creatinine 0.4 mg/dL (0.6-1.2) L 01/17/22 21:16 Estimated GFR > 60 ml/min 01/17/22 21:16 BUN/Creatinine Ratio 10 % 01/17/22 21:16 Glucose 103 mg/dL (65-100) H 01/17/22 21:16 Calcium 8.2 mg/dL (8.4-10.2) L 01/17/22 21:16 Total Bilirubin 0.70 mg/dL (0.1-1.2) 01/17/22 21:16 AST 81 units/L (5-40) H 01/17/22 21:16 ALT 20 units/L (7-56) 01/17/22 21:16 Alkaline Phosphatase 135 units/L (35-129) H 01/17/22 21:16 Total Protein 5.0 g/dL (6.3-8.2) L 01/17/22 21:16 Albumin 2.9 g/dL (3.9-5) L 01/17/22 21:16 Albumin/Globulin Ratio 1.4 % 01/17/22 21:16 Harrell/IV: Voiding Method Toilet Active Medications - Current Medications Current Medications: Generic Name Dose Route Start Last Admin Trade Name Freq PRN Reason Stop Dose Admin Acetaminophen 650 mg 01/17/22 20:41 Acetaminophen 325 Mg Tab PO Q4H PRN Pain MILD(1-3)/Fever >100.5/JORDAN Famotidine 20 mg 01/17/22 22:00 01/17/22 21:54 Famotidine 20 Mg Tab PO 20 mg BID RUCHI Administration Hydromorphone HCl 0.5 mg 01/17/22 20:41 01/18/22 08:11 Hydromorphone 0.5 Mg/0.5 Ml Inj IV 0.5 mg Q3H PRN Administration Pain , Severe (7-10) Potassium Chloride 10 meq in 100 mls @ 100 mls/hr 01/18/22 09:00 Kcl 10meq/100ml IV 01/18/22 12:59 Q1H RUCHI Morphine Sulfate 2 mg 01/17/22 17:06 01/17/22 19:58 Morphine 2 Mg/1 Ml Inj IV 2 mg Q4H PRN Administration Pain, Moderate (4-6) Ondansetron HCl 4 mg 01/17/22 20:41 01/18/22 08:11 Ondansetron 4 Mg/2 Ml Inj IV 4 mg Q8H PRN Administration Nausea And Vomiting Sodium Chloride 10 ml 01/17/22 22:00 01/17/22 21:54 Sodium Chloride 0.9% 10 Ml Flush Syringe IV 10 ml BID RUCHI Administration Sodium Chloride 10 ml 01/17/22 20:41 Sodium Chloride 0.9% 10 Ml Flush Syringe IV PRN PRN LINE FLUSH
--- NOTE | 2022-01-18 09:45 | Procedure Note ---
Date of procedure: 01/18/22 Pre-op diagnosis: ascites Post-op diagnosis: same Procedure: US paracentesis Findings: moderate ascites Anesthesia: local Surgeon: DL HOLDEN Estimated blood loss: none Pathology: list (120cc) Specimen disposition: to lab Condition: stable Disposition: floor
--- NOTE | 2022-01-18 09:49 | Ultrasound Report ---
ULTRASOUND-GUIDED PARACENTESIS HISTORY: ascites, liver failure. PROCEDURE: The risks (including but not limited to bleeding, infection, and bowel injury) and benefi ts were explained to the patient and informed consent was obtained. A time out procedure was perform ed. Ultrasound was used to evaluate the abdomen and locate the largest ascites fluid pocket. Once the sk in was marked, the procedure site was prepped and draped in the usual sterile fashion and lidocaine w as used for local anesthesia. A 5 Bulgarian centesis catheter was placed. The patient was monitored cl osely throughout the procedure, and a total of 1920 mL of clear yellow fluid was aspirated. Samples were sent to the lab for further evaluation per the primary clinicians orders. The patient tolerated the procedure well with no complications. IMPRESSION: Successful ultrasound-guided paracentesis as described. Signer Name: Dick Rios Jr, MD Signed: 01/18/2022 9:45 AM Workstation Name: [id number]
[2022-01-18] MEDS: FAMOTIDINE 20 MG TAB PO SCH ×2 (10:34→21:31)
[2022-01-18] MEDS ORDERED: SODIUM CHLORIDE 0.9% 250ML 250 ML ONE (10:37)
[2022-01-18] MEDS: POTASSIUM CHLORIDE 10 MEQ 10 MEQ/100 ML BAG IV SCH ×3 (10:39→21:15)
--- NOTE | 2022-01-18 11:04 | Consultation ---
History of Present Illness Consult date: 01/18/22 Reason for consult: abdominal pain Chief complaint: abd pain - History of present illness History of present illness: 31-year-old female who recently underwent laparoscopic cholecystectomy with IOC, primary repair of epigastric hernia on 01/09/2022. The patient was admitted to [facility] on 01/08/2022 for acute cholecystitis. The patient has a history of underlying liver disease with chronically elevated AST, bilirubin, INR. She has a history of alcohol abuse but no longer drinks. The patient presented to the office on 01/17/2022 for postoperative follow-up. She had complaints of increasing abdominal distention, diffuse abdominal pain, nausea, early satiety. On physical exam her abdomen was noted to be distended. The patient was sent for a CT scan of the abdomen and pelvis. This revealed generalized anasarca, moderate volume ascites, hepatomegaly. Due to the patient's symptom severity, I recommended direct admission to the hospitalist service as well as paracentesis. The patient was admitted to the hospital. White count is normal. Bilirubin is 0.7. AST and INR mildly dangelo vated but at baseline. Albumin is low. The patient has already undergone paracentesis this morning. Approximately 2 L of ascitic fluid was aspirated. The patient states that she is very hungry. No nausea or vomiting. No fevers or chills. She still complains of periincisional pain as well as contraction-like pain. Past History Past Medical History: GERD, other (Liver disease from alcohol abuse) Past Surgical History: cholecystectomy, hernia repair, Other (Tubal ligation) Social history: lives with family, full code. denies: alcohol abuse Family history: no significant family history Medications and Allergies Allergies Allergy/AdvReac Type Severity Reaction Status Date / Time turkey Allergy Unknown Verified 02/27/21 10:50 Home Medications Medication Instructions Recorded Confirmed Last Taken Type glyBURIDE [Glyburide] 2.5 mg PO DAILY 09/29/17 01/10/22 02/26/21 History Famotidine [Pepcid] 20 mg PO BID #40 tablet 08/04/21 01/10/22 Unknown Rx Docusate Sodium [Colace] 100 mg PO BID PRN #20 capsule 01/10/22 Unknown Rx HYDROcodone/APAP 5-325 [[place] 1 each PO Q4H PRN #14 tablet 01/10/22 Unknown Rx 5-325 mg TAB] Ondansetron [Zofran ODT TAB] 4 mg PO Q6HR PRN #20 tab.rapdis 01/10/22 Unknown Rx Active Meds: Active Medications Acetaminophen (Acetaminophen 325 Mg Tab) 650 mg PO Q4H PRN PRN Reason: Pain MILD(1-3)/Fever >100.5/JORDAN Famotidine (Famotidine 20 Mg Tab) 20 mg PO BID [facility] Last Admin: 01/18/22 10:34 Dose: 20 mg Hydromorphone HCl (Hydromorphone 0.5 Mg/0.5 Ml Inj) 0.5 mg IV Q3H PRN PRN Reason: Pain , Severe (7-10) Last Admin: 01/18/22 08:11 Dose: 0.5 mg Potassium Chloride (Kcl 10meq/100ml) 10 meq in 100 mls @ 100 mls/hr IV Q1H RUCHI Stop: 01/18/22 12:59 Last Admin: 01/18/22 10:39 Dose: 100 mls/hr Insulin Human Lispro (Insulin Lispro 100 Unit/Ml) 0 unit SUB-Q ACHS RUCHI; Protocol Morphine Sulfate (Morphine 2 Mg/1 Ml Inj) 2 mg IV Q4H PRN PRN Reason: Pain, Moderate (4-6) Last Admin: 01/17/22 19:58 Dose: 2 mg Ondansetron HCl (Ondansetron 4 Mg/2 Ml Inj) 4 mg IV Q8H PRN PRN Reason: Nausea And Vomiting Last Admin: 01/18/22 08:11 Dose: 4 mg Sodium Chloride (Sodium Chloride 0.9% 10 Ml Flush Syringe) 10 ml IV BID [facility] Last Admin: 01/18/22 10:34 Dose: 10 ml Sodium Chloride (Sodium Chloride 0.9% 10 Ml Flush Syringe) 10 ml IV PRN PRN PRN Reason: LINE FLUSH Review of Systems All systems: negative (10 point ROS performed and negative except for that listed in HPI) Exam Vital Signs Pulse Resp BP Pulse Ox 78 18 120/88 100 01/17/22 20:00 01/17/22 20:00 01/17/22 20:00 01/17/22 20:00 Narrative exam: Gen.: Awake, alert, oriented x3. No apparent distress ENT: Trachea midline. No lymphadenopathy. No scleral icterus or conjunctival pallor CV: S1, S2 present Respiratory: No audible wheezes Abdomen: Soft, mildly distended, nontender. No rebound, rigidity, guarding Extremities: No clubbing, cyanosis, edema Results - Labs 01/17/22 21:16 01/17/22 21:16 Abnormal lab results 01/17/22 01/17/22 01/17/22 Range/Units 21:16 21:16 21:16 RBC 3.23 L (3.65-5.03) M/mm3 MCV 108 H (79-97) fl MCH 35 H (28-32) pg RDW 18.5 H (13.2-15.2) % [place] % (Auto) 10.6 H (0.0-7.3) % PT 17.6 H (12.2-14.9) Sec. INR 1.29 H (0.87-1.13) Potassium 3.1 L (3.6-5.0) mmol/L BUN 4 L (7-17) mg/dL Creatinine 0.4 L (0.6-1.2) mg/dL Glucose 103 H (65-100) mg/dL Calcium 8.2 L (8.4-10.2) mg/dL AST 81 H (5-40) units/L Alkaline Phosphatase 135 H (35-129) units/L Total Protein 5.0 L (6.3-8.2) g/dL Albumin 2.9 L (3.9-5) g/dL Diabetes panel 01/17/22 Range/Units 21:16 Sodium 141 (137-145) mmol/L Potassium 3.1 L (3.6-5.0) mmol/L Chloride 102.8 (98-107) mmol/L Carbon Dioxide 27 (22-30) mmol/L BUN 4 L (7-17) mg/dL Creatinine 0.4 L (0.6-1.2) mg/dL Glucose 103 H (65-100) mg/dL Calcium 8.2 L (8.4-10.2) mg/dL AST 81 H (5-40) units/L ALT 20 (7-56) units/L Alkaline Phosphatase 135 H (35-129) units/L Total Protein 5.0 L (6.3-8.2) g/dL Albumin 2.9 L (3.9-5) g/dL Calcium panel 01/17/22 Range/Units 21:16 Calcium 8.2 L (8.4-10.2) mg/dL Albumin 2.9 L (3.9-5) g/dL Pituitary panel 01/17/22 Range/Units 21:16 Sodium 141 (137-145) mmol/L Potassium 3.1 L (3.6-5.0) mmol/L Chloride 102.8 (98-107) mmol/L Carbon Dioxide 27 (22-30) mmol/L BUN 4 L (7-17) mg/dL Creatinine 0.4 L (0.6-1.2) mg/dL Glucose 103 H (65-100) mg/dL Calcium 8.2 L (8.4-10.2) mg/dL Adrenal panel 01/17/22 Range/Units 21:16 Sodium 141 (137-145) mmol/L Potassium 3.1 L (3.6-5.0) mmol/L Chloride 102.8 (98-107) mmol/L Carbon Dioxide 27 (22-30) mmol/L BUN 4 L (7-17) mg/dL Creatinine 0.4 L (0.6-1.2) mg/dL Glucose 103 H (65-100) mg/dL Calcium 8.2 L (8.4-10.2) mg/dL Total Bilirubin 0.70 (0.1-1.2) mg/dL AST 81 H (5-40) units/L ALT 20 (7-56) units/L Alkaline Phosphatase 135 H (35-129) units/L Total Protein 5.0 L (6.3-8.2) g/dL Albumin 2.9 L (3.9-5) g/dL - Imaging CT scan - abdomen: report reviewed, image reviewed CT scan - pelvis: report reviewed, image reviewed Assessment and Plan 31-year-old female with 1. ascites 2. hx of etoh induced liver disease 3. s/p lap janey with IOC, 1' repair epigastric hernia on 01/09/22 Plan: 1. reg diet 2. prn PO pain control 3. Rec GI consultation 4. May need diuresis for anasarca 5. No surgical intervention at this time - will s/o. D/W Dr. Gonzalez. Thank you for this consultation.
[2022-01-18] MEDS: HYDROcodone/ACETAMINOPHEN 5-325 MG TAB PO PRN ×2 (12:38→20:17)
[2022-01-18] MEDS ORDERED: POTASSIUM CHLORIDE ER 20 MEQ TAB PO SCH (13:00)
[2022-01-18 13:57] LABS: Total Cells Counted 100 /mm3
[2022-01-18] MEDS: INSULIN LISPRO 100 UNIT/ML SUB-Q SCH ×3 (13:58→21:05)
--- NOTE | 2022-01-18 16:11 | Gastroenterology Consultation ---
History of Present Illness - Reason for Consult Consult date: 01/18/22 cirrhosis, ascites Requesting physician: EFRAÍN VAZQUEZ - History of Present Illness 31-year-old female who recently underwent laparoscopic cholecystectomy with IOC, primary repair of epigastric hernia on 01/09/2022. GI is consulted for ascites Patient reports abdominal pain and increasing abdominal distention since her surgery a week and a half ago Abdominal pain is diffuse. Severe. Sharp. Worse with palpation better with nothing. Nonradiating. Associated with difficulty with passing her stool Reports very heavy drinking for the last year since her brother was murdered. Reports significant heavy drinking on weekends and the 2 years prior to that. 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 denies: alcohol abuse Family history: no significant family history Medications and Allergies Allergies Allergy/AdvReac Type Severity Reaction Status Date / Time turkey Allergy Unknown Verified 01/18/22 11:27 Home Medications Medication Instructions Recorded Confirmed Last Taken Type Famotidine [Pepcid] 20 mg PO BID #40 tablet 08/04/21 01/18/22 01/16/22 Rx Docusate Sodium [Colace] 100 mg PO BID PRN #20 capsule 01/10/22 01/18/22 01/16/22 Rx HYDROcodone/APAP 5-325 [[place] 1 each PO Q4H PRN #14 tablet 01/10/22 01/18/22 01/16/22 Rx 5-325 mg TAB] Ondansetron [Zofran ODT TAB] 4 mg PO Q6HR PRN #20 tab.rapdis 01/10/22 01/18/22 01/16/22 Rx Active Meds: Active Medications Acetaminophen (Acetaminophen 325 Mg Tab) 650 mg PO Q4H PRN PRN Reason: Pain MILD(1-3)/Fever >100.5/JORDAN Hydrocodone Bitart/Acetaminophen (Hydrocodone/Acetaminophen 5-325 Mg Tab) 1 each PO Q4H PRN PRN Reason: Pain, Moderate (4-6) Last Admin: 01/18/22 12:38 Dose: 1 each Famotidine (Famotidine 20 Mg Tab) 20 mg PO BID [facility] Last Admin: 01/18/22 10:34 Dose: 20 mg Insulin Human Lispro (Insulin Lispro 100 Unit/Ml) 0 unit SUB-Q ACHS [facility]; Protocol Last Admin: 01/18/22 13:58 Dose: Not Given Ondansetron HCl (Ondansetron 4 Mg/2 Ml Inj) 4 mg IV Q8H PRN PRN Reason: Nausea And Vomiting Last Admin: 01/18/22 08:11 Dose: 4 mg Potassium Chloride (Potassium Chloride Er 20 Meq Tab) 40 meq PO ONCE@1300 [facility] Stop: 01/18/22 17:00 Last Admin: 01/18/22 13:58 Dose: 40 meq Sodium Chloride (Sodium Chloride 0.9% 10 Ml Flush Syringe) 10 ml IV BID [facility] Last Admin: 01/18/22 10:34 Dose: 10 ml Sodium Chloride (Sodium Chloride 0.9% 10 Ml Flush Syringe) 10 ml IV PRN PRN PRN Reason: LINE FLUSH Review of Systems - Review of Systems All systems: negative (10 Systems reviewed and negative except as mentioned above in the history of present illness) Exam - Constitutional Vital Signs: Temp Pulse Resp BP Pulse Ox 98.7 F 77 18 113/79 98 01/18/22 05:27 01/18/22 05:27 01/18/22 05:27 01/18/22 05:27 01/18/22 05:27 General appearance: no acute distress - EENT Eyes: EOM intact - Neck Neck: supple - Respiratory Respiratory effort: normal - Cardiovascular Rhythm: regular - Gastrointestinal General gastrointestinal: Present: other (Diffusely tender. Positive fluid wave, decreased bowel sounds) - Integumentary Integumentary: Present: clear, dry - Musculoskeletal Musculoskeletal: normal - Neurologic Neurological: alert and oriented x3 - Psychiatric Psychiatric: appropriate mood/affect - Labs CBC & Chem 7: 01/17/22 21:16 01/17/22 21:16 Lab Results: Laboratory Results - last 24 hr 01/17/22 01/17/22 01/17/22 21:16 21:16 21:16 WBC 6.2 RBC 3.23 L Hgb 11.4 Hct 34.8 MCV 108 H MCH 35 H MCHC 33 RDW 18.5 H Plt Count 303 Lymph % (Auto) 24.7 [place] % (Auto) 10.6 H Eos % (Auto) 2.2 Baso % (Auto) 0.6 Lymph # (Auto) 1.5 [place] # (Auto) 0.7 Eos # (Auto) 0.1 Baso # (Auto) 0.0 Seg Neutrophils % 61.9 Seg Neutrophils # 3.8 PT 17.6 H INR 1.29 H Sodium 141 Potassium 3.1 L Chloride 102.8 Carbon Dioxide 27 Anion Gap 14 BUN 4 L Creatinine 0.4 L Estimated GFR > 60 BUN/Creatinine Ratio 10 Glucose 103 H Calcium 8.2 L Total Bilirubin 0.70 AST 81 H ALT 20 Alkaline Phosphatase 135 H Total Protein 5.0 L Albumin 2.9 L Albumin/Globulin Ratio 1.4 Fluid Type Fluid Color Fluid Appearance Fluid WBC Fluid RBC Fluid Seg Neutrophils Fluid Lymphocytes Fluid Reactive Lymphs Fluid Monocytes Fluid Eosinophils Fluid Basophils 01/18/22 Unknown WBC RBC Hgb Hct MCV MCH MCHC RDW Plt Count Lymph % (Auto) [place] % (Auto) Eos % (Auto) Baso % (Auto) Lymph # (Auto) [place] # (Auto) Eos # (Auto) Baso # (Auto) Seg Neutrophils % Seg Neutrophils # PT INR Sodium Potassium Chloride Carbon Dioxide Anion Gap BUN Creatinine Estimated GFR BUN/Creatinine Ratio Glucose Calcium Total Bilirubin AST ALT Alkaline Phosphatase Total Protein Albumin Albumin/Globulin Ratio Fluid Type Ascitic Fluid Color Martha Fluid Appearance Clear Fluid WBC [id number] Fluid RBC 2300 Fluid Seg Neutrophils 1.0 Fluid Lymphocytes 41.0 Fluid Reactive Lymphs Not Reportable Fluid Monocytes 57.0 Fluid Eosinophils 1.0 Fluid Basophils Not Reportable Assessment and Plan Para shows SBP, I started on Abx therapy with ceftriaxone 2gm IV daily, please complete total of 7 days of treatment. Patient can be discharged on ciprofloxacin if she is stable for discharge prior to full 7 days Treating the infection will decrease the ascites buildup Low-sodium diet I will start the patient on Lasix and Aldactone, low-dose and with a high ratio of Aldactone to Lasix than usual given patient's hypokalemia. Please monitor patient's electrolytes daily Regarding the significant ascites and liver disease, amount of alcohol described would not commonly cause cirrhosis. Acute hep panel negative. I will order remainder of evaluation for underlying liver disease to ensure no secondary cau ses however patient can be discharged prior to these results coming back as a will take 1 to 2 weeks for them to result From GI standpoint, as long as ascites is gradually decreasing and her symptoms are improving she can be discharged with outpatient follow-up - Patient Problems (1) Spontaneous bacterial peritonitis Current Visit: Yes Status: Acute (2) Cirrhosis of liver with ascites Current Visit: Yes Status: Acute (3) Elevated LFTs Current Visit: No Status: Acute (4) Fatty infiltration of liver Current Visit: No Status: Chronic
[2022-01-18] MEDS: cefTRIAXone/NS 2 GM/100 ML 2 GM/100 ML BAG IV SCH (17:14)
[2022-01-18 20:07] LABS: Iron 32 ug/dL (37-170); Total Iron Binding Capacity 218 mcg/dL (250-450)
[2022-01-18] MEDS: FUROSEMIDE 20 MG TAB PO SCH (20:13)
[2022-01-18] MEDS: SPIRONOLACTONE 25 MG TAB PO SCH (20:13)
[2022-01-19] MEDS: HYDROcodone/ACETAMINOPHEN 5-325 MG TAB PO PRN ×3 (01:08→17:24)
[2022-01-19] MEDS: ONDANSETRON 4 MG/2 ML INJ IV PRN ×2 (08:14→17:23)
[2022-01-19] MEDS: SPIRONOLACTONE 25 MG TAB PO SCH (09:25)
[2022-01-19] MEDS: FUROSEMIDE 20 MG TAB PO SCH (09:26)
[2022-01-19] MEDS: FAMOTIDINE 20 MG TAB PO SCH ×2 (09:26→21:48)
--- NOTE | 2022-01-19 10:50 | Gastroenterology Progress Note ---
Assessment and Plan 1. Ascites - s/p paracentesis, started on diuretics. monitor response and low sodium diet. f/u ascitic fluid studies. suspect portal htn related given alcohol use history. 2. Liver lesion - MRI to further characterize 3. SBP - complete course of abx 4. Alcohol abuse - counseled on cessation Subjective Date of service: 01/19/22 Principal diagnosis: ascites Interval history: pt c/o abd pain (worsened after iv pain meds discontinued). states pain is since surgery; slightly improved after paracentesis. no gi bleeding signs. Objective - Constitutional Vitals: Temp Pulse Resp BP Pulse Ox 99.1 F 73 18 117/78 100 01/18/22 20:25 01/18/22 20:25 01/18/22 20:25 01/18/22 20:25 01/19/22 03:00 General appearance: no acute distress - Respiratory Respiratory effort: normal Respiratory: bilateral: CTA - Gastrointestinal General gastrointestinal: Present: deferred, tender, distended (mild) - Neurologic Neurological: alert and oriented x3 - Psychiatric Psychiatric: appropriate mood/affect - Labs CBC & Chem 7: 01/17/22 21:16 01/17/22 21:16 Labs: Laboratory Results - last 24 hr 01/18/22 01/18/22 01/18/22 12:16 16:36 18:48 POC Glucose 134 H 112 H Iron 32 L TIBC 218 L Fluid Type Fluid Color Fluid Appearance Fluid WBC Fluid RBC Fluid Seg Neutrophils Fluid Lymphocytes Fluid Reactive Lymphs Fluid Monocytes Fluid Eosinophils Fluid Basophils 01/18/22 01/18/22 20:50 Unknown POC Glucose 137 H Iron TIBC Fluid Type Ascitic Fluid Color Martha Fluid Appearance Clear Fluid WBC [id number] Fluid RBC 2300 Fluid Seg Neutrophils 1.0 Fluid Lymphocytes 41.0 Fluid Reactive Lymphs Not Reportable Fluid Monocytes 57.0 Fluid Eosinophils 1.0 Fluid Basophils Not Reportable
--- NOTE | 2022-01-19 16:24 | Progress Note ---
Assessment and Plan Assessment and plan: 31-year-old female with no significant past medical history comes in for abdominal distention of 1 week. Patient had a cholecystectomy on January 09. Postop patient has been having abdominal distention for which patient is being admitted for surgical evaluation and paracentesis. Slight abdominal pain p resent. No nausea or vomiting. No exacerbating or relieving factors. Patient has assessed this status post therapeutic and diagnostic paracentesis, peritoneal fluid findings consistent with SBP, GI started on Rocephin, MRI was requested Assessment and plan: --Cirrhosis of liver with ascites s/pTherapeutic and diagnostic paracentesis --Spontaneous bacterial peritonitis, IV antibiotics Rocephin and supportive care GI following --Transaminitis/fatty infiltration of the liver Supportive care GI following --Possible liver lesion; check MRI brain, GI following - hypokalemia Supplemented. Follow electrolytes -- Severe protein calorie malnutrition Dietary supplements after the procedure --hypoalbuminemia; albumin 2.9 Nutrition supplements/nutrition consult/supportive care --Advance care planning Disease education conducted, care plan discussed, diagnosis discussed prognosis discussed. Patient acknowledged understanding of the care plan. Care plan +30 minutes. -- DVT prophylaxis On heparin and GI prophylaxis Will closely monitor the patient and adjust management as needed Follow GI recommendations, follow MRI abdomen DC planning per case management; possible discharge in 1 to 2 days if stable Advance care planning; Patient's condition discussed in detail with the patient, tests and reports discussed with the patient Diagnosis discussed with the patient, abdominal paracentesis significance, and fluid analysis discussed with the patient Consultants evaluation and recommendations I discussed with the patient's, tr eatment plan and ultimately the discharge plan was also discussed in detail with the patient, I answered all patient's questions, she verbalized understanding and agreed with the plan History Interval history: I have seen and examined the patient at the bedside. Patient's chart and medications reviewed Vital signs noted Patient still has some abdominal pain Hospitalist Physical - Constitutional Vitals: Temp Pulse Resp BP Pulse Ox 99.1 F 73 18 117/78 100 01/18/22 20:25 01/18/22 20:25 01/18/22 20:25 01/18/22 20:25 01/19/22 10:00 General appearance: Present: no acute distress, well-nourished - EENT Eyes: Present: PERRL, EOM intact - Neck Neck: Present: supple, normal ROM - Respiratory Respiratory effort: normal Respiratory: bilateral: diminished, negative: rales, rhonchi, wheezing - Cardiovascular Rhythm: regular Heart Sounds: Present: S1 & S2 - Extremities Extremities: no ischemia, No edema - Abdominal General gastrointestinal: soft, non-tender, non-distended, normal bowel sounds - Integumentary Integumentary: Present: clear, warm - Psychiatric Psychiatric: appropriate mood/affect, cooperative - Neurologic Neurologic: moves all extremities Results - Labs CBC & Chem 7: 01/17/22 21:16 01/17/22 21:16 Labs: Laboratory Last Values WBC 6.2 K/mm3 (4.5-11.0) 01/17/22 21:16 RBC 3.23 M/mm3 (3.65-5.03) L 01/17/22 21:16 Hgb 11.4 gm/dl (10.1-14.3) 01/17/22 21:16 Hct 34.8 % (30.3-42.9) 01/17/22 21:16 MCV 108 fl (79-97) H 01/17/22 21:16 MCH 35 pg (28-32) H 01/17/22 21:16 MCHC 33 % (30-34) 01/17/22 21:16 RDW 18.5 % (13.2-15.2) H 01/17/22 21:16 Plt Count 303 K/mm3 (140-440) 01/17/22 21:16 Lymph % (Auto) 24.7 % (13.4-35.0) 01/17/22 21:16 [place] % (Auto) 10.6 % (0.0-7.3) H 01/17/22 21:16 Eos % (Auto) 2.2 % (0.0-4.3) 01/17/22 21:16 Baso % (Auto) 0.6 % (0.0-1.8) 01/17/22 21:16 Lymph # (Auto) 1.5 K/mm3 (1.2-5.4) 01/17/22 21:16 [place] # (Auto) 0.7 K/mm3 (0.0-0.8) 01/17/22 21:16 Eos # (Auto) 0.1 K/mm3 (0.0-0.4) 01/17/22 21:16 Baso # (Auto) 0.0 K/mm3 (0.0-0.1) 01/17/22 21:16 Seg Neutrophils % 61.9 % (40.0-70.0) 01/17/22 21:16 Seg Neutrophils # 3.8 K/mm3 (1.8-7.7) 01/17/22 21:16 PT 17.6 Sec. (12.2-14.9) H 01/17/22 21:16 INR 1.29 (0.87-1.13) H 01/17/22 21:16 Sodium 141 mmol/L (137-145) 01/17/22 21:16 Potassium 3.1 mmol/L (3.6-5.0) L 01/17/22 21:16 Chloride 102.8 mmol/L (98-107) 01/17/22 21:16 Carbon Dioxide 27 mmol/L (22-30) 01/17/22 21:16 Anion Gap 14 mmol/L 01/17/22 21:16 BUN 4 mg/dL (7-17) L 01/17/22 21:16 Creatinine 0.4 mg/dL (0.6-1.2) L 01/17/22 21:16 Estimated GFR > 60 ml/min 01/17/22 21:16 BUN/Creatinine Ratio 10 % 01/17/22 21:16 Glucose 103 mg/dL (65-100) H 01/17/22 21:16 POC Glucose 137 mg/dL (70-105) H 01/18/22 20:50 Calcium 8.2 mg/dL (8.4-10.2) L 01/17/22 21:16 Iron 32 ug/dL (37-170) L 01/18/22 18:48 TIBC 218 mcg/dL (250-450) L 01/18/22 18:48 Total Bilirubin 0.70 mg/dL (0.1-1.2) 01/17/22 21:16 AST 81 units/L (5-40) H 01/17/22 21:16 ALT 20 units/L (7-56) 01/17/22 21:16 Alkaline Phosphatase 135 units/L (35-129) H 01/17/22 21:16 Total Protein 5.0 g/dL (6.3-8.2) L 01/17/22 21:16 Albumin 2.9 g/dL (3.9-5) L 01/17/22 21:16 Albumin/Globulin Ratio 1.4 % 01/17/22 21:16 Fluid Type Ascitic 01/18/22 Unknown Fluid Color Martha 01/18/22 Unknown Fluid Appearance Clear 01/18/22 Unknown Fluid WBC 604518 /mm3 01/18/22 Unknown Fluid RBC 2300 /mm3 01/18/22 Unknown Fluid Seg Neutrophils 1.0 % 01/18/22 Unknown Fluid Lymphocytes 41.0 % 01/18/22 Unknown Fluid Reactive Lymphs Not Reportable 01/18/22 Unknown Fluid Monocytes 57.0 % 01/18/22 Unknown Fluid Eosinophils 1.0 % 01/18/22 Unknown Fluid Basophils Not Reportable 01/18/22 Unknown Nasal Screen MRSA (PCR) Negative (Negative) 01/18/22 21:45 [place]/IV: Voiding Method Toilet Active Medications - Current Medications Current Medications: Generic Name Dose Route Start Last Admin Trade Name Freq PRN Reason Stop Dose Admin Acetaminophen 650 mg 01/17/22 20:41 Acetaminophen 325 Mg Tab PO Q4H PRN Pain MILD(1-3)/Fever >100.5/JORDAN Hydrocodone Bitart/Acetaminophen 1 each 01/18/22 11:06 01/19/22 09:25 Hydrocodone/Acetaminophen 5-325 Mg Tab PO 1 each Q4H PRN Administration Pain, Moderate (4-6) Famotidine 20 mg 01/17/22 22:00 01/19/22 09:26 Famotidine 20 Mg Tab PO 20 mg BID RUCHI Administration Furosemide 20 mg 01/18/22 20:00 01/19/22 09:26 Furosemide 20 Mg Tab PO 20 mg QDAY RUCHI Administration Ceftriaxone Sodium 2 gm in 100 mls @ 200 mls/hr 01/18/22 18:00 01/18/22 17:14 Rocephin/Ns 2 Gm/100 Ml IV 200 mls/hr Q24H RUCHI Administration Protocol Ondansetron HCl 4 mg 01/17/22 20:41 01/19/22 08:14 Ondansetron 4 Mg/2 Ml Inj IV 4 mg Q8H PRN Administration Nausea And Vomiting Sodium Chloride 10 ml 01/17/22 22:00 01/19/22 09:26 Sodium Chloride 0.9% 10 Ml Flush Syringe IV 10 ml BID RUCHI Administration Sodium Chloride 10 ml 01/17/22 20:41 Sodium Chloride 0.9% 10 Ml Flush Syringe IV PRN PRN LINE FLUSH Spironolactone 75 mg 01/18/22 20:00 01/19/22 09:25 Spironolactone 25 Mg Tab PO 75 mg QDAY RUCHI Administration Nutrition/Malnutrition Assess - Dietary Evaluation Nutrition/Malnutrition Findings: Nutrition Notes Start: 01/18/22 15:29 Freq: Status: Active Protocol: Document 01/18/22 15:29 BOBBY (Rec: 01/18/22 15:34 [facility] [id number]) Nutrition Notes 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 Paracentesis performed this am with removal of 2L of fluid. Unable to speak with pt today. Burn Absent Trauma Absent Is patient on ventilator? No Is Patient Ambulatory and/or Out of Bed Yes REE-([facility]-ambulatory/OOB) [ 1402.999 [id number]] Calculation Used for Recommendations [facility] Additional Notes Pro needs 0.8-1g/k-45g/ day Fluid needs 1ml/kcal Nutrition Intervention Follow-Up By: 01/21/22 Additional Comments F/U: MST assessment, intakes ( meals, ONS)
[2022-01-19] MEDS: cefTRIAXone/NS 2 GM/100 ML 2 GM/100 ML BAG IV SCH (17:23)
[2022-01-19] MEDS ORDERED: ZOLPIDEM 5 MG TAB PO ONE (22:30)
[2022-01-20] MEDS: HYDROcodone/ACETAMINOPHEN 5-325 MG TAB PO PRN ×2 (00:03→19:50)
[2022-01-20 06:41] LABS: Alanine Aminotransferase 18 units/L (7-56); Albumin 2.9 g/dL (3.9-5); Blood Urea Nitrogen 8 mg/dL (7-17); Calcium 8.5 mg/dL (8.4-10.2); Hemolysis Index 1
[2022-01-20 06:51] LABS: BUN/Creatinine Ratio 27
[2022-01-20] MEDS: ONDANSETRON 4 MG/2 ML INJ IV PRN (08:21)
[2022-01-20] MEDS: FAMOTIDINE 20 MG TAB PO SCH ×2 (09:43→21:14)
[2022-01-20] MEDS: FUROSEMIDE 20 MG TAB PO SCH (10:00)
--- NOTE | 2022-01-20 10:08 | Gastroenterology Progress Note ---
Assessment and Plan 1. Ascites - s/p paracentesis, cont diuretics and low sodium diet, ascitic fluid shows SBP 2. Liver lesion - MRI pending to further characterize lesion (r/o HCC or other pathology) 3. SBP - complete course of abx 4. Alcohol abuse - has been counseled on cessation Subjective Date of service: 01/20/22 Principal diagnosis: ascites Interval history: no events overnight, awake/alert, abd cramping mostly unchanged Objective - Exam Narrative Exam: Gen: nad abd: soft, binder in place, mild distention CV: rrr - Constitutional Vitals: Temp Pulse Resp BP Pulse Ox 98.1 F 60 16 96/65 97 01/20/22 04:14 01/20/22 04:14 01/20/22 04:14 01/20/22 04:14 01/20/22 04:14 - Labs CBC & Chem 7: 01/17/22 21:16 01/20/22 06:00 Labs: Laboratory Results - last 24 hr 01/18/22 01/20/22 21:45 06:00 Sodium 142 Potassium 3.9 D Chloride 104.4 Carbon Dioxide 29 Anion Gap 13 BUN 8 Creatinine 0.3 L Estimated GFR > 60 BUN/Creatinine Ratio 27 Glucose 89 Calcium 8.5 Magnesium 1.50 L Total Bilirubin 0.40 AST 73 H ALT 18 Alkaline Phosphatase 136 H Total Protein 4.9 L Albumin 2.9 L Albumin/Globulin Ratio 1.5 Nasal Screen MRSA (PCR) Negative
--- NOTE | 2022-01-20 11:27 | Progress Note ---
Assessment and Plan Assessment and plan: 31-year-old female with no significant past medical history comes in for abdominal distention of 1 week. Patient had a cholecystectomy on January 09. Postop patient has been having abdominal distention for which patient is being admitted for surgical evaluation and paracentesis. Slight abdominal pain p resent. No nausea or vomiting. No exacerbating or relieving factors. Patient has assessed this status post therapeutic and diagnostic paracentesis, peritoneal fluid findings consistent with SBP, GI started on Rocephin, MRI was requested Assessment and plan: --Cirrhosis of liver with ascites s/pTherapeutic and diagnostic paracentesis [1.4 L peritoneal fluid removed] Fluid analysis show SBP --Spontaneous bacterial peritonitis, IV antibiotics Rocephin and supportive care, GI following --Transaminitis/fatty infiltration of the liver Supportive care GI following --Possible liver lesion; check MRI brain, GI following - hypokalemia Supplemented. Follow electrolytes -- Severe protein calorie malnutrition Dietary supplements after the procedure --hypoalbuminemia; albumin 2.9 Nutrition supplements/nutrition consult/supportive care --Advance care planning Disease education conducted, care plan discussed, diagnosis discussed prognosis discussed. Patient acknowledged understanding of the care plan. Care plan +30 minutes. -- DVT prophylaxis On heparin and GI prophylaxis Will closely monitor the patient and adjust management as needed Follow GI recommendations, follow MRI abdomen DC planning per case management; possible discharge in 1 to 2 days if stable Advance care planning; Patient's condition discussed in detail with the patient, tests and reports discussed with the patient Diagnosis discussed with the patient, abdominal paracentesis significance, and fluid show SBP discussed with the patient Consultants evaluation and recommendations I discussed with the patient's, treatment plan and ultimately the discharge plan was also discussed in detail with the patient, I answered all patient's questions, she verbalized understanding and agreed with the plan Daily Hospital course 01/18; s/p paracentesis, patient's fluid analysis consistent with SBP, GI started on Rocephin 01/19; possible liver lesion/MRI abdomen requested, follow report, complains of insomnia, melatonin as needed 01/20; continue antibiotics, follow MRI[not done during weekend], Colace for constipation, Closely monitor History Interval history: I have seen and examined the patient at the bedside, Patient's chart and medications reviewed Patient with cirrhosis liver, ascites, status post paracentesis, fluid analysis consistent with SBP[spontaneous bacterial peritonitis On IV antibiotics, steatosis of the liver, possible liver lesion, GI ordered MRI abdomen. Patient feels slightly better today Complains of insomnia and constipation Vital signs noted Hospitalist Physical - Constitutional Vitals: Temp Pulse Resp BP Pulse Ox 98.1 F 60 16 96/65 97 01/20/22 04:14 01/20/22 04:14 01/20/22 04:14 01/20/22 04:14 01/20/22 04:14 General appearance: Present: no acute distress, well-nourished - EENT Eyes: Present: PERRL, EOM intact - Neck Neck: Present: supple, normal ROM - Respiratory Respiratory effort: normal Respiratory: bilateral: diminished, negative: rales, rhonchi, wheezing - Cardiovascular Rhythm: regular Heart Sounds: Present: S1 & S2 - Extremities Extremities: no ischemia, No edema - Abdominal General gastrointestinal: soft, non-tender, non-distended, normal bowel sounds - Integumentary Integumentary: Present: clear, warm - Psychiatric Psychiatric: appropriate mood/affect, cooperative - Neurologic Neurologic: CNII-XII intact, moves all extremities Results - Labs CBC & Chem 7: 01/17/22 21:16 01/20/22 06:00 Labs: Laboratory Last Values WBC 6.2 K/mm3 (4.5-11.0) 01/17/22 21:16 RBC 3.23 M/mm3 (3.65-5.03) L 01/17/22 21:16 Hgb 11.4 gm/dl (10.1-14.3) 01/17/22 21:16 Hct 34.8 % (30.3-42.9) 01/17/22 21:16 MCV 108 fl (79-97) H 01/17/22 21:16 MCH 35 pg (28-32) H 01/17/22 21:16 MCHC 33 % (30-34) 01/17/22 21:16 RDW 18.5 % (13.2-15.2) H 01/17/22 21:16 Plt Count 303 K/mm3 (140-440) 01/17/22 21:16 Lymph % (Auto) 24.7 % (13.4-35.0) 01/17/22 21:16 [place] % (Auto) 10.6 % (0.0-7.3) H 01/17/22 21:16 Eos % (Auto) 2.2 % (0.0-4.3) 01/17/22 21:16 Baso % (Auto) 0.6 % (0.0-1.8) 01/17/22 21:16 Lymph # (Auto) 1.5 K/mm3 (1.2-5.4) 01/17/22 21:16 [place] # (Auto) 0.7 K/mm3 (0.0-0.8) 01/17/22 21:16 Eos # (Auto) 0.1 K/mm3 (0.0-0.4) 01/17/22 21:16 Baso # (Auto) 0.0 K/mm3 (0.0-0.1) 01/17/22 21:16 Seg Neutrophils % 61.9 % (40.0-70.0) 01/17/22 21:16 Seg Neutrophils # 3.8 K/mm3 (1.8-7.7) 01/17/22 21:16 PT 17.6 Sec. (12.2-14.9) H 01/17/22 21:16 INR 1.29 (0.87-1.13) H 01/17/22 21:16 Sodium 142 mmol/L (137-145) 01/20/22 06:00 Potassium 3.9 mmol/L (3.6-5.0) D 01/20/22 06:00 Chloride 104.4 mmol/L (98-107) 01/20/22 06:00 Carbon Dioxide 29 mmol/L (22-30) 01/20/22 06:00 Anion Gap 13 mmol/L 01/20/22 06:00 BUN 8 mg/dL (7-17) 01/20/22 06:00 Creatinine 0.3 mg/dL (0.6-1.2) L 01/20/22 06:00 Estimated GFR > 60 ml/min 01/20/22 06:00 BUN/Creatinine Ratio 27 % 01/20/22 06:00 Glucose 89 mg/dL (65-100) 01/20/22 06:00 POC Glucose 137 mg/dL (70-105) H 01/18/22 20:50 Calcium 8.5 mg/dL (8.4-10.2) 01/20/22 06:00 Magnesium 1.50 mg/dL (1.7-2.3) L 01/20/22 06:00 Iron 32 ug/dL (37-170) L 01/18/22 18:48 TIBC 218 mcg/dL (250-450) L 01/18/22 18:48 Total Bilirubin 0.40 mg/dL (0.1-1.2) 01/20/22 06:00 AST 73 units/L (5-40) H 01/20/22 06:00 ALT 18 units/L (7-56) 01/20/22 06:00 Alkaline Phosphatase 136 units/L (35-129) H 01/20/22 06:00 Total Protein 4.9 g/dL (6.3-8.2) L 01/20/22 06:00 Albumin 2.9 g/dL (3.9-5) L 01/20/22 06:00 Albumin/Globulin Ratio 1.5 % 01/20/22 06:00 Fluid Type Ascitic 01/18/22 Unknown Fluid Color Martha 01/18/22 Unknown Fluid Appearance Clear 01/18/22 Unknown Fluid WBC 181240 /mm3 01/18/22 Unknown Fluid RBC 2300 /mm3 01/18/22 Unknown Fluid Seg Neutrophils 1.0 % 01/18/22 Unknown Fluid Lymphocytes 41.0 % 01/18/22 Unknown Fluid Reactive Lymphs Not Reportable 01/18/22 Unknown Fluid Monocytes 57.0 % 01/18/22 Unknown Fluid Eosinophils 1.0 % 01/18/22 Unknown Fluid Basophils Not Reportable 01/18/22 Unknown Nasal Screen MRSA (PCR) Negative (Negative) 01/18/22 21:45 Harrell/IV: Voiding Method Toilet Active Medications - Current Medications Current Medications: Generic Name Dose Route Start Last Admin Trade Name Freq PRN Reason Stop Dose Admin Acetaminophen 650 mg 01/17/22 20:41 Acetaminophen 325 Mg Tab PO Q4H PRN Pain MILD(1-3)/Fever >100.5/OJRDAN Hydrocodone Bitart/Acetaminophen 1 each 01/18/22 11:06 01/20/22 00:03 Hydrocodone/Acetaminophen 5-325 Mg Tab PO 1 each Q4H PRN Administration Pain, Moderate (4-6) Famotidine 20 mg 01/17/22 22:00 01/20/22 09:43 Famotidine 20 Mg Tab PO 20 mg BID RUCHI Administration Furosemide 20 mg 01/18/22 20:00 01/19/22 09:26 Furosemide 20 Mg Tab PO 20 mg QDAY RUCHI Administration Ceftriaxone Sodium 2 gm in 100 mls @ 200 mls/hr 01/18/22 18:00 01/19/22 21:49 Rocephin/Ns 2 Gm/100 Ml IV Infused Q24H RUCHI Infusion Protocol Ondansetron HCl 4 mg 01/17/22 20:41 01/20/22 08:21 Ondansetron 4 Mg/2 Ml Inj IV 4 mg Q8H PRN Administration Nausea And Vomiting Sodium Chloride 10 ml 01/17/22 22:00 01/20/22 09:44 Sodium Chloride 0.9% 10 Ml Flush Syringe IV 10 ml BID RUCHI Administration Sodium Chloride 10 ml 01/17/22 20:41 Sodium Chloride 0.9% 10 Ml Flush Syringe IV PRN PRN LINE FLUSH Spironolactone 75 mg 01/18/22 20:00 01/19/22 09:25 Spironolactone 25 Mg Tab PO 75 mg QDAY RUCHI Administration Nutrition/Malnutrition Assess - Dietary Evaluation Nutrition/Malnutrition Findings: Nutrition Notes Start: 01/18/22 15:29 Freq: Status: Active Protocol: Document 01/18/22 15:29 BOBBY (Rec: 01/18/22 15:34 BOBBY [id number]) Nutrition Notes Need for Assessment 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 Paracentesis performed this am with removal of 2L of fluid. Unable to speak with pt today. Burn Absent Trauma Absent Is patient on ventilator? No Is Patient Ambulatory and/or Out of Bed Yes REE-([place]-[facility] Jeor-ambulatory/OOB) [ 1402.999 NUTR.MSJOOB] Calculation Used for Recommendations [place]-[facility] Additional Notes Pro needs 0.8-1g/k-45g/ day Fluid needs 1ml/kcal Nutrition Intervention Follow-Up By: 01/21/22 Additional Comments F/U: MST assessment, intakes ( meals, ONS)
[2022-01-20] MEDS: SPIRONOLACTONE 25 MG TAB PO SCH (11:51)
[2022-01-20] MEDS: cefTRIAXone/NS 2 GM/100 ML 2 GM/100 ML BAG IV SCH (17:38)
[2022-01-20] MEDS ORDERED: DOCUSATE SODIUM 100 MG CAP PO ONE (19:19)
[2022-01-20] MEDS ORDERED: MAGNESIUM SULFATE 3 GM in SODIUM CHLORIDE 0.9% 100 ML IV ONE (19:27)
[2022-01-20] MEDS: MELATONIN 5 MG TAB PO PRN (21:14)
[2022-01-20] MEDS: DOCUSATE SODIUM 100 MG CAP PO SCH (21:28)
[2022-01-21] MEDS: HYDROcodone/ACETAMINOPHEN 5-325 MG TAB PO PRN ×3 (00:31→20:13)
[2022-01-21] MEDS: ONDANSETRON 4 MG/2 ML INJ IV PRN ×2 (09:08→20:13)
--- NOTE | 2022-01-21 09:12 | Progress Note ---
Assessment and Plan Assessment and plan: 31-year-old female with no significant past medical history comes in for abdominal distention of 1 week. Patient had a cholecystectomy on January 09. Postop patient has been having abdominal distention for which patient is being admitted for surgical evaluation and paracentesis. Slight abdominal pain p resent. No nausea or vomiting. No exacerbating or relieving factors. Patient has assessed this status post therapeutic and diagnostic paracentesis, peritoneal fluid findings consistent with SBP, GI started on Rocephin, MRI was requested and done, findings reviewed Radiology recommended repeat ultrasound Doppler for evaluation of Budd-Chiari syndrome Assessment and plan: --Possible liver lesion; check MRI brain 01/22/2020 findings reviewed Radiology recommended to get hepatic ultrasound with Doppler To rule out Budd-Chiari syndrome. --Cirrhosis of liver with ascites s/pTherapeutic and diagnostic paracentesis [1.4 L peritoneal fluid removed] Fluid analysis show SBP --Spontaneous bacterial peritonitis, IV antibiotics Rocephin and supportive care, GI following --Transaminitis/fatty infiltration of the liver Supportive care GI following - hypokalemia Supplemented. Follow electrolytes -- Severe protein calorie malnutrition Dietary supplements after the procedure --hypoalbuminemia; albumin 2.9 Nutrition supplements/nutrition consult/supportive care --Advance care planning Disease education conducted, care plan discussed, diagnosis discussed prognosis discussed. Patient acknowledged understanding of the care plan. Care plan +30 minutes. -- DVT prophylaxis On heparin and GI prophylaxis Will closely monitor the patient and adjust management as needed Follow GI recommendations, follow MRI abdomen DC planning per case management; possible discharge in 1 to 2 days if stable Advance care planning; Patient's condition discussed in detail with the patient, tests and reports discussed with the patient Diagnosis discussed with the patient, abdominal paracentesis significance, and fluid show SBP discussed with the patient Consultants evaluation and recommendations I discussed with the patient's, treatment plan and ultimately the discharge plan was also discussed in detail with the patient, I answered all patient's questions, she verbalized understanding and agreed with the plan Daily Hospital course 01/18; s/p paracentesis, patient's fluid analysis consistent with SBP, GI started on Rocephin 01/19; possible liver lesion/MRI abdomen requested, follow report, complains of insomnia, melatonin as needed 01/20; continue antibiotics, follow MRI[not done during weekend], Colace for constipation, Closely monitor 01/21; MRI abdomen/liver findings reviewed, radiology recommended hepatic ultrasound with Doppler Budd-Chiari syndrome, patient is n.p.o. from midnight Requested for tomorrow Disposition; follow clinically, follow GI recommendations, follow hepatic ultrasound with Doppler History Interval history: Seen and examined the patient at the bedside Patient's chart and medications reviewed No new events reported by the nursing Vital signs noted Patient is scheduled for MRI abdomen today Hospitalist Physical - Constitutional Vitals: Temp Pulse Resp BP Pulse Ox 97.7 F 60 16 101/62 99 01/21/22 04:48 01/21/22 04:48 01/21/22 04:48 01/21/22 04:48 01/21/22 04:48 General appearance: Present: no acute distress, well-nourished - EENT Eyes: Present: PERRL, EOM intact ENT: hearing intact - Neck Neck: Present: supple, normal ROM - Respiratory Respiratory effort: normal Respiratory: bilateral: diminished, negative: rales, rhonchi, wheezing, other - Cardiovascular Rhythm: regular Heart Sounds: Present: S1 & S2 - Extremities Extremities: no ischemia Extremity abnormal: edema - Abdominal General gastrointestinal: soft, non-tender, other (Ascites) - Integumentary Integumentary: Present: clear, warm - Psychiatric Psychiatric: appropriate mood/affect, cooperative - Neurologic Neurologic: moves all extremities Results - Labs CBC & Chem 7: 01/17/22 21:16 01/20/22 06:00 Labs: Laboratory Last Values WBC 6.2 K/mm3 (4.5-11.0) 01/17/22 21:16 RBC 3.23 M/mm3 (3.65-5.03) L 01/17/22 21:16 Hgb 11.4 gm/dl (10.1-14.3) 01/17/22 21:16 Hct 34.8 % (30.3-42.9) 01/17/22 21:16 MCV 108 fl (79-97) H 01/17/22 21:16 MCH 35 pg (28-32) H 01/17/22 21:16 MCHC 33 % (30-34) 01/17/22 21:16 RDW 18.5 % (13.2-15.2) H 01/17/22 21:16 Plt Count 303 K/mm3 (140-440) 01/17/22 21:16 Lymph % (Auto) 24.7 % (13.4-35.0) 01/17/22 21:16 [place] % (Auto) 10.6 % (0.0-7.3) H 01/17/22 21:16 Eos % (Auto) 2.2 % (0.0-4.3) 01/17/22 21:16 Baso % (Auto) 0.6 % (0.0-1.8) 01/17/22 21:16 Lymph # (Auto) 1.5 K/mm3 (1.2-5.4) 01/17/22 21:16 [place] # (Auto) 0.7 K/mm3 (0.0-0.8) 01/17/22 21:16 Eos # (Auto) 0.1 K/mm3 (0.0-0.4) 01/17/22 21:16 Baso # (Auto) 0.0 K/mm3 (0.0-0.1) 01/17/22 21:16 Seg Neutrophils % 61.9 % (40.0-70.0) 01/17/22 21:16 Seg Neutrophils # 3.8 K/mm3 (1.8-7.7) 01/17/22 21:16 PT 17.6 Sec. (12.2-14.9) H 01/17/22 21:16 INR 1.29 (0.87-1.13) H 01/17/22 21:16 Sodium 142 mmol/L (137-145) 01/20/22 06:00 Potassium 3.9 mmol/L (3.6-5.0) D 01/20/22 06:00 Chloride 104.4 mmol/L (98-107) 01/20/22 06:00 Carbon Dioxide 29 mmol/L (22-30) 01/20/22 06:00 Anion Gap 13 mmol/L 01/20/22 06:00 BUN 8 mg/dL (7-17) 01/20/22 06:00 Creatinine 0.3 mg/dL (0.6-1.2) L 01/20/22 06:00 Estimated GFR > 60 ml/min 01/20/22 06:00 BUN/Creatinine Ratio 27 % 01/20/22 06:00 Glucose 89 mg/dL (65-100) 01/20/22 06:00 POC Glucose 137 mg/dL (70-105) H 01/18/22 20:50 Calcium 8.5 mg/dL (8.4-10.2) 01/20/22 06:00 Magnesium 1.50 mg/dL (1.7-2.3) L 01/20/22 06:00 Iron 32 ug/dL (37-170) L 01/18/22 18:48 TIBC 218 mcg/dL (250-450) L 01/18/22 18:48 Total Bilirubin 0.40 mg/dL (0.1-1.2) 01/20/22 06:00 AST 73 units/L (5-40) H 01/20/22 06:00 ALT 18 units/L (7-56) 01/20/22 06:00 Alkaline Phosphatase 136 units/L (35-129) H 01/20/22 06:00 Total Protein 4.9 g/dL (6.3-8.2) L 01/20/22 06:00 Albumin 2.9 g/dL (3.9-5) L 01/20/22 06:00 Albumin/Globulin Ratio 1.5 % 01/20/22 06:00 Fluid Type Ascitic 01/18/22 Unknown Fluid Color Martha 01/18/22 Unknown Fluid Appearance Clear 01/18/22 Unknown Fluid WBC 721601 /mm3 01/18/22 Unknown Fluid RBC 2300 /mm3 01/18/22 Unknown Fluid Seg Neutrophils 1.0 % 01/18/22 Unknown Fluid Lymphocytes 41.0 % 01/18/22 Unknown Fluid Reactive Lymphs Not Reportable 01/18/22 Unknown Fluid Monocytes 57.0 % 01/18/22 Unknown Fluid Eosinophils 1.0 % 01/18/22 Unknown Fluid Basophils Not Reportable 01/18/22 Unknown Nasal Screen MRSA (PCR) Negative (Negative) 01/18/22 21:45 Harrell/IV: Voiding Method Toilet Active Medications - Current Medications Current Medications: Generic Name Dose Route Start Last Admin Trade Name Freq PRN Reason Stop Dose Admin Acetaminophen 650 mg 01/17/22 20:41 Acetaminophen 325 Mg Tab PO Q4H PRN Pain MILD(1-3)/Fever >100.5/JORDAN Hydrocodone Bitart/Acetaminophen 1 each 01/18/22 11:06 01/21/22 09:10 Hydrocodone/Acetaminophen 5-325 Mg Tab PO 1 each Q4H PRN Administration Pain, Moderate (4-6) Docusate Sodium 100 mg 01/20/22 22:00 01/20/22 21:28 Docusate Sodium 100 Mg Cap PO 100 mg BID RUCHI Administration Famotidine 20 mg 01/17/22 22:00 01/20/22 21:14 Famotidine 20 Mg Tab PO 20 mg BID RUCHI Administration Furosemide 20 mg 01/18/22 20:00 01/20/22 10:00 Furosemide 20 Mg Tab PO Not Given QDAY RUCHI Ceftriaxone Sodium 2 gm in 100 mls @ 200 mls/hr 01/18/22 18:00 01/20/22 17:38 Rocephin/Ns 2 Gm/100 Ml IV 200 mls/hr Q24H RUCHI Administration Protocol Melatonin 5 mg 01/20/22 19:22 01/20/22 21:14 Melatonin 5 Mg Tab PO 5 mg QHS PRN Administration Sleep Ondansetron HCl 4 mg 01/17/22 20:41 01/21/22 09:08 Ondansetron 4 Mg/2 Ml Inj IV 4 mg Q8H PRN Administration Nausea And Vomiting Sodium Chloride 10 ml 01/17/22 22:00 01/20/22 21:15 Sodium Chloride 0.9% 10 Ml Flush Syringe IV 10 ml BID RUCHI Administration Sodium Chloride 10 ml 01/17/22 20:41 Sodium Chloride 0.9% 10 Ml Flush Syringe IV PRN PRN LINE FLUSH Spironolactone 75 mg 01/18/22 20:00 01/20/22 11:51 Spironolactone 25 Mg Tab PO Not Given QDAY RUCHI Nutrition/Malnutrition Assess - Dietary Evaluation Nutrition/Malnutrition Findings: Nutrition Notes Start: 01/18/22 15:29 Freq: Status: Active Protocol: Document 01/18/22 15:29 BOBBY (Rec: 01/18/22 15:34 BOBBY [id number]) Nutrition Notes Need for 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 Paracentesis performed this am with removal of 2L of fluid. Unable to speak with pt today. Burn Absent Trauma Absent Is patient on ventilator? No Is Patient Ambulatory and/or Out of Bed Yes REE-([facility]-ambulatory/OOB) [ 1402.999 NUTR.MSJOOB] Calculation Used for Recommendations [facility] Additional Notes Pro needs 0.8-1g/k-45g/ day Fluid needs 1ml/kcal Nutrition Intervention Follow-Up By: 01/21/22 Additional Comments F/U: MST assessment, intakes ( meals, ONS)
[2022-01-21] MEDS ORDERED: LORazepam 2 MG/ML VIAL IV STA (09:55)
[2022-01-21 12:51] LABS: Albumin 3.2 g/dL (3.9-5); Bilirubin,Direct 0.2 mg/dL (0-0.2)
--- NOTE | 2022-01-21 13:59 | Magnetic Resonance Report ---
MRI ABDOMEN WITHOUT AND WITH CONTRAST INDICATION / CLINICAL INFORMATION: liver lesion on CT, liver protocol MRI. TECHNIQUE: Multiplanar, multisequence series were obtained through the abdomen. 19 mL of contrast wer e administered. COMPARISON: CT dated 01/17/2022 FINDINGS: LOWER CHEST: Streaky T2 hyperintense opacities in both lung bases, likely subsegmental atelectasis. LIVER: Normal morphology with steatosis. On postcontrast images, there is heterogeneous enhancement o f the liver, which is most pronounced on arterial phase images. No suspicious focal lesion. The intra hepatic IVC is small in caliber but appears to remain patent. GALLBLADDER: Cholecystectomy. BILE DUCTS: No significant abnormality. PANCREAS: No significant abnormality. SPLEEN: No significant abnormality. ADRENALS: No significant abnormality. RIGHT KIDNEY / URETER: No significant abnormality. LEFT KIDNEY / URETER: No significant abnormality. STOMACH / VISUALIZED BOWEL: No significant abnormality. PERITONEUM: Moderate volume ascites. No free air. No fluid collection. LYMPH NODES: No significant adenopathy. AORTA / ARTERIES: No significant abnormality. IVC / VEINS: Narrowing of the intrahepatic IVC, which appears to remain patent. Portal vein is patent . ADDITIONAL FINDINGS: None. SKELETAL SYSTEM: No significant abnormality. IMPRESSION: 1. Hepatic steatosis with heterogeneous enhancement of the liver most pronounced arterial phase image s, which may be perfusional rather related to geographic steatosis. Intrahepatic IVC is small in ulisses samina and further evaluation of the hepatic vasculature with abdominal Doppler is recommended as Budd-C hiari type syndrome is not excluded. No focal liver lesion. 2. Moderate volume ascites. These findings were discussed with the patient's hospitalist at 1245 on 01/21/2022. Signer Name: Reggie Huang MD Signed: 01/21/2022 1:55 PM Workstation Name: [id number]
[2022-01-21] MEDS: DOCUSATE SODIUM 100 MG CAP PO SCH ×2 (15:13→21:01)
[2022-01-21] MEDS: SPIRONOLACTONE 25 MG TAB PO SCH (15:13)
[2022-01-21] MEDS: FUROSEMIDE 20 MG TAB PO SCH (15:13)
[2022-01-21] MEDS: FAMOTIDINE 20 MG TAB PO SCH ×2 (15:13→21:01)
--- NOTE | 2022-01-21 18:00 | Gastroenterology Progress Note ---
Assessment and Plan 1. Ascites - + sbp, complete course of abx (can switch to fluoroquinolone at time of discharge to complete course). cont diuretics and low sodium diet. suspect portal htn related 2. liver lesion - no obvious pathology/mass on MRI. will sign off, please call as needed or with questions Subjective Date of service: 01/21/22 Principal diagnosis: ascites Interval history: c/o abd cramping, tolerating po. Objective - Exam Narrative Exam: Gen: nad abd: soft, mod distention, + ttp, + surgical incision CV: rrr - Constitutional Vitals: Temp Pulse Resp BP Pulse Ox 98.3 F 71 18 109/68 96 01/21/22 17:23 01/21/22 17:23 01/21/22 17:23 01/21/22 17:23 01/21/22 17:23 - Labs CBC & Chem 7: 01/17/22 21:16 01/20/22 06:00 Labs: Laboratory Results - last 24 hr 01/21/22 01/21/22 11:50 12:20 POC Glucose 89 Magnesium 1.80 Total Bilirubin 0.40 Direct Bilirubin 0.2 Indirect Bilirubin 0.2 AST 113 H ALT 26 Alkaline Phosphatase 143 H Total Protein 5.1 L Albumin 3.2 L Albumin/Globulin Ratio 1.7
[2022-01-21] MEDS: cefTRIAXone/NS 2 GM/100 ML 2 GM/100 ML BAG IV SCH (20:14)
[2022-01-21] MEDS: MELATONIN 5 MG TAB PO PRN (23:26)
[2022-01-22] MEDS: ONDANSETRON 4 MG/2 ML INJ IV PRN (07:22)
[2022-01-22] MEDS ORDERED: SODIUM CHLORIDE 0.9% 1000 ML 1,000 ML IV SCH (08:42)
[2022-01-22] MEDS: MORPHINE 2 MG/1 ML INJ IV PRN (09:04)
--- NOTE | 2022-01-22 11:40 | Vascular Lab Report ---
AORTA/IVC/ILIAC DUPLEX LIMITED HISTORY: Cirrhosis with ascites. Evaluate for Budd-Chiari syndrome. TECHNIQUE: Transabdominal ultrasound with color and spectral Doppler imaging. COMPARISON: No relevant comparison. FINDINGS: The IVC, main portal vein, and hepatic veins are patent with normal direction of blood flow . The hepatic veins demonstrate hepatofugal flow. The portal vein demonstrates hepatopedal flow. Thes e vessels demonstrate a thickened and swirling flow consistent rouleaux formation. The main portal ve in measures 1.2 cm in diameter. The hepatic artery is patent with peak systolic velocity measuring 42 cm/s. The liver demonstrates a cirrhotic configuration with small perihepatic ascites. IMPRESSION: No evidence for venous thrombosis. Signer Name: Dick Rios Jr, MD Signed: 01/22/2022 11:36 AM Workstation Name: [id number]
[2022-01-22] MEDS: FUROSEMIDE 20 MG TAB PO SCH (12:42)
[2022-01-22] MEDS: DOCUSATE SODIUM 100 MG CAP PO SCH ×2 (12:42→22:14)
[2022-01-22] MEDS: HYDROcodone/ACETAMINOPHEN 5-325 MG TAB PO PRN ×2 (12:43→23:07)
[2022-01-22] MEDS: SPIRONOLACTONE 25 MG TAB PO SCH (12:43)
[2022-01-22] MEDS: diphenhydrAMINE 25 MG CAP PO PRN ×2 (12:43→19:16)
--- NOTE | 2022-01-22 14:57 | Progress Note ---
Assessment and Plan 31-year-old female with no significant past medical history comes in for abdominal distention of 1 week. Patient had a cholecystectomy on January 09. Postop patient has been having abdominal distention for which patient is being admitted for surgical evaluation and paracentesis. Slight abdominal pain present. No nausea or vomiting. No exacerbating or relieving factors. Patient has assessed this status post therapeutic and diagnostic paracentesis, peritoneal fluid findings consistent with SBP, GI started on Rocephin, MRI was requested and done, findings reviewed Radiology recommended repeat ultrasound Doppler for evaluation of Budd-Chiari syndrome Assessment and plan: --Possible liver lesion; check MRI brain 01/22/2020 findings reviewed Radiology recommended to get hepatic ultrasound with Doppler To rule out Budd-Chiari syndrome. --Cirrhosis of liver with ascites s/pTherapeutic and diagnostic paracentesis [1.4 L peritoneal fluid removed] Fluid analysis show SBP --Spontaneous bacterial peritonitis, IV antibiotics Rocephin and supportive care, GI following --Transaminitis/fatty infiltration of the liver Supportive care GI following - hypokalemia Supplemented. Follow electrolytes -- Severe protein calorie malnutrition Dietary supplements after the procedure --hypoalbuminemia; albumin 2.9 Nutrition supplements/nutrition consult/supportive care --Advance care planning Disease education conducted, care plan discussed, diagnosis discussed prognosis discussed. Patient acknowledged understanding of the care plan. Care plan +30 minutes. -- DVT prophylaxis On heparin and GI prophylaxis Will closely monitor the patient and adjust management as needed Follow GI recommendations, follow MRI abdomen DC planning per case management; possible discharge in 1 to 2 days if stable Advance care planning; Patient's condition discussed in detail with the patient, tests and reports discussed with the patient Diagnosis discussed with the patient, abdominal paracentesis significance, and fluid show SBP discussed with the patient Consultants evaluation and recommendations I discussed with the patient's, treatment plan and ultimately the discharge plan was also discussed in detail with the patient, I answered all patient's questions, she verbalized irisan sydney and agreed with the plan Daily Hospital course 01/18; s/p paracentesis, patient's fluid analysis consistent with SBP, GI started on Rocephin 01/19; possible liver lesion/MRI abdomen requested, follow report, complains of insomnia, melatonin as needed 01/20; continue antibiotics, follow MRI[not done during weekend], Colace for constipation, Closely monitor 01/21; MRI abdomen/liver findings reviewed, radiology recommended hepatic ultrasound with Doppler Budd-Chiari syndrome, patient is n.p.o. from midnight Requested for tomorrow Disposition; follow clinically, follow GI recommendations, follow hepatic ultrasound with Doppler Subjective Date of service: 01/22/22 Principal diagnosis: ascites Objective - Constitutional Vitals: Vital Signs - 12hr 01/22/22 01/22/22 01/22/22 05:12 08:29 11:43 Temperature 98.1 F 98.9 F Pulse Rate 67 61 Respiratory 16 16 Rate Blood Pressure 98/63 113/83 O2 Sat by Pulse 98 98 100 Oximetry - Labs CBC & Chem 7: 01/17/22 21:16 01/20/22 06:00 Labs: Abnormal lab results 01/22/22 Range/Units 07:49 POC Glucose 106 H (70-105) mg/dL
[2022-01-22] MEDS: FAMOTIDINE 20 MG TAB PO SCH ×2 (16:06→22:14)
[2022-01-22] MEDS: cefTRIAXone/NS 2 GM/100 ML 2 GM/100 ML BAG IV SCH (17:17)
[2022-01-22] MEDS: MELATONIN 5 MG TAB PO PRN (23:07)
[2022-01-23] MEDS: diphenhydrAMINE 25 MG CAP PO PRN ×3 (01:19→23:46)
[2022-01-23 07:13] LABS: Amylase,Body Fluid 19; LDH,Body Fluid 100; Total Protein,Body Fluid < 3.0 (15.0-45.0)
[2022-01-23] MEDS: FAMOTIDINE 20 MG TAB PO SCH ×2 (08:59→22:21)
[2022-01-23] MEDS: ONDANSETRON 4 MG/2 ML INJ IV PRN (08:59)
[2022-01-23] MEDS: FUROSEMIDE 20 MG TAB PO SCH (08:59)
[2022-01-23] MEDS: DOCUSATE SODIUM 100 MG CAP PO SCH ×2 (08:59→22:21)
[2022-01-23] MEDS: MORPHINE 2 MG/1 ML INJ IV PRN ×2 (10:52→23:45)
[2022-01-23] MEDS: SPIRONOLACTONE 25 MG TAB PO SCH (10:53)
--- NOTE | 2022-01-23 16:09 | Progress Note ---
Assessment and Plan 31-year-old female with no significant past medical history comes in for abdominal distention of 1 week. Patient had a cholecystectomy on January 09. Postop patient has been having abdominal distention for which patient is being admitted for surgical evaluation and paracentesis. Slight abdominal pain present. No nausea or vomiting. No exacerbating or relieving factors. Patient has assessed this status post therapeutic and diagnostic paracentesis, peritoneal fluid findings consistent with SBP, GI started on Rocephin, MRI was requested and done, findings reviewed Radiology recommended repeat ultrasound Doppler for evaluation of Budd-Chiari syndrome Assessment and plan: --Possible liver lesion; check MRI brain 01/22/2020 findings reviewed Radiology recommended to get hepatic ultrasound with Doppler To rule out Budd-Chiari syndrome. --Cirrhosis of liver with ascites s/pTherapeutic and diagnostic paracentesis [1.4 L peritoneal fluid removed] Fluid analysis show SBP --Spontaneous bacterial peritonitis, IV antibiotics Rocephin and supportive care, GI following --Transaminitis/fatty infiltration of the liver Supportive care GI following - hypokalemia Supplemented. Follow electrolytes -- Severe protein calorie malnutrition Dietary supplements after the procedure --hypoalbuminemia; albumin 2.9 Nutrition supplements/nutrition consult/supportive care --Advance care planning Disease education conducted, care plan discussed, diagnosis discussed prognosis discussed. Patient acknowledged understanding of the care plan. Care plan +30 minutes. -- DVT prophylaxis On heparin and GI prophylaxis Will closely monitor the patient and adjust management as needed Follow GI recommendations, follow MRI abdomen DC planning per case management; possible discharge in 1 to 2 days if stable Advance care planning; Patient's condition discussed in detail with the patient, tests and reports discussed with the patient Diagnosis discussed with the patient, abdominal paracentesis significance, and fluid show SBP discussed with the patient Consultants evaluation and recommendations I discussed with the patient's, treatment plan and ultimately the discharge plan was also discussed in detail with the patient, I answered all patient's questions, she verbalized irisan sydney and agreed with the plan Daily Hospital course 01/18; s/p paracentesis, patient's fluid analysis consistent with SBP, GI started on Rocephin 01/19; possible liver lesion/MRI abdomen requested, follow report, complains of insomnia, melatonin as needed 01/20; continue antibiotics, follow MRI[not done during weekend], Colace for constipation, Closely monitor 01/21; MRI abdomen/liver findings reviewed, radiology recommended hepatic ultrasound with Doppler Budd-Chiari syndrome, patient is n.p.o. from midnight Requested for tomorrow Disposition; follow clinically, follow GI recommendations, follow hepatic ultrasound with Doppler Subjective Date of service: 01/23/22 Principal diagnosis: ascites Objective - Constitutional Vitals: Vital Signs - 12hr 01/23/22 01/23/22 01/23/22 04:59 07:47 07:51 Temperature 98.5 F Pulse Rate 66 Respiratory 16 Rate Blood Pressure 105/75 O2 Sat by Pulse 95 97 98 Oximetry 01/23/22 01/23/22 10:44 16:02 Temperature 98.3 F Pulse Rate 72 68 Respiratory 18 Rate Blood Pressure 122/80 123/88 O2 Sat by Pulse 97 100 Oximetry - Labs CBC & Chem 7: 01/17/22 21:16 01/20/22 06:00 Labs: Abnormal lab results 01/18/22 01/22/22 Range/Units Unknown 15:42 POC Glucose 113 H (70-105) mg/dL Fluid Glucose 91 H (40-70) mg/dL Fluid Total Protein < 3.0 L (15.0-45.0)
[2022-01-23] MEDS: cefTRIAXone/NS 2 GM/100 ML 2 GM/100 ML BAG IV SCH (17:13)
--- NOTE | 2022-01-23 18:25 | Ultrasound Report ---
ULTRASOUND ABDOMEN, COMPLETE INDICATION / CLINICAL INFORMATION: possible buddchiari symdrom. COMPARISON: MRI previous day. Abdominal ultrasound 01/08/2022. FINDINGS: PANCREAS: No significant abnormality. ABDOMINAL AORTA: No significant abnormality. IVC: No significant abnormality. LIVER: Enlarged and heterogeneous. Normal hepatopedal blood flow in the main portal vein. Portal vein appears prominent in size. GALLBLADDER: Partially contracted. Internal sludge. BILE DUCTS: No significant abnormality. Common bile duct measures 4.2 mm. KIDNEYS: Right: No significant abnormality. Left: No significant abnormality. SPLEEN: No significant abnormality. FREE FLUID: Mild ascites. ADDITIONAL FINDINGS: None. IMPRESSION: 1. Large, mildly heterogeneous liver. 2. Mild ascites. 3. Partially contracted gallbladder containing internal sludge. 4. Portal vein is patent but appears prominent in size. Signer Name: Marc Partida MD Signed: 01/23/2022 6:21 PM Workstation Name: [id number]
[2022-01-23] MEDS: MELATONIN 5 MG TAB PO PRN (23:49)
[2022-01-24] MEDS: MORPHINE 2 MG/1 ML INJ IV PRN ×2 (08:36→14:26)
[2022-01-24] MEDS: ONDANSETRON 4 MG/2 ML INJ IV PRN (08:36)
--- NOTE | 2022-01-24 12:42 | Discharge Summary ---
Providers - Providers Date of Admission: 01/17/22 17:32 Date of discharge: 01/24/22 Attending physician: MICHELLE QUINTERO 01/17/22 20:41 Consult to Physician [CONS] Routine Comment: Consulting Provider: SHALINI HAYDEN Physician Instructions: Reason For Exam: Ascites 01/18/22 11:00 Consult to Physician [CONS] Routine Comment: Consulting Provider: MERLY BRAVO Physician Instructions: Advised by surgeon Dr. Hayden Reason For Exam: Ascites/liver disease 01/20/22 19:26 Consult to Dietitian/Nutrition [CONS] Routine Physician Instructions: Reason For Exam: Reason for Consult: Malnutrition Primary care physician: [employer] Hospitalization Disposition: HOME / SELF CARE / HOMELESS Final Discharge Diagnosis (Prints w/discharge instructions): -- Alcoholic cirrhosis. -- Alcoholic liver disease. -- Ascitis. -- Elevated LFT. -- Spontaneous bacterial peritonitis. -- Severe protein calorie malnutrition Time spent for discharge: 34 minutes Core Measure Documentation - Palliative Care Palliative Care/ Comfort Measures: Not Applicable - Core Measures Any of the following diagnoses?: none Exam - Constitutional Vitals: Temp Pulse Resp BP Pulse Ox 98.7 F 63 20 123/87 98 01/24/22 05:38 01/24/22 05:38 01/24/22 05:38 01/24/22 05:38 01/24/22 05:38 Plan Activity: advance as tolerated Weight Bearing Status: Weight Bear as Tolerated Diet: low fat, low salt Follow up with: PRIMARY CARE, [Primary Care Provider] - 7 Days Prescriptions: Spironolactone [Aldactone] 75 mg PO QDAY #30 tablet Furosemide [Lasix TAB] 20 mg PO QDAY #30 tablet
[2022-01-24 13:41] VITALS: BP 116/85
[2022-01-24] MEDS: SPIRONOLACTONE 25 MG TAB PO SCH (14:30)
[2022-01-24] MEDS: DOCUSATE SODIUM 100 MG CAP PO SCH (14:31)
[2022-01-24] MEDS: FAMOTIDINE 20 MG TAB PO SCH (14:31)
[2022-01-24] MEDS: FUROSEMIDE 20 MG TAB PO SCH (14:31)
== END 2022-01-24 15:30 | disposition home or self-care (01) | DRG 432 ==
LOC: UNDOADMIN 16:05 → 3A 16:05
PROVIDERS: ADMIT Internal Medicine; ATTEND Internal Medicine
PROC: 0W9G3ZZ Drainage of Peritoneal Cavity, Percutaneous Approach (ICD-10-PCS; principal; 2022-01-18)
DX: K70.31 Alcoholic cirrhosis of liver with ascites (principal); K65.2 Spontaneous bacterial peritonitis; E43 Unspecified severe protein-calorie malnutrition; E87.6 Hypokalemia; E11.9 Type 2 diabetes mellitus without complications; K21.9 Gastro-esophageal reflux disease without esophagitis; F10.10 Alcohol abuse, uncomplicated; Y90.9 Presence of alcohol in blood, level not specified; Z68.20 Body mass index [BMI] 20.0-20.9, adult; Z90.49 Acquired absence of other specified parts of digestive tract; Z98.51 Tubal ligation status; Z91.018 Allergy to other foods
CPT/HCPCS: 36415; 49083; 74177; 74183; 76700; 80053; 80076; 82150; 82390; 82947; 82962; 83550; 83605; 83735; 84160; 85025; 85610; 86235; 87641; 88112; 89051; 93979; G0378; A9575; J0696; J1170; J2060; J2270; J2405; J3475; J3480; J7030; Q9967